=== PATIENT | male | born 1980 | race Caucasian/White ===

== ENCOUNTER 2017-08-10 12:12 | Emergency (ER) | payer SELFPAY ==
[2017-08-10 12:13] VITALS: BP 147/73; PULSE 107; RESP 16; TEMP 37.1; O2SAT 98; BMI 22.5
--- NOTE | 2017-08-10 12:42 | ED.DCSUM_ITS ---
- ER Visit Summary Date of Service: 08/10/17 Chief Complaint: [] Mouth infection History of Present Illness: The patient is a 37 M [] right cheek swelling and concern for dental infection. Patient denies fevers. Reports difficulty with mastication. Denies difficulty swallowing fluids or shortness of breath. No other complaints at this time. Physical Examination: [] Mild right submandibular lymphadenopathy. Right intraoral inner lower cheek swelling with slight gingival swelling indicative of gingival soft tissue infection. No obvious abscess intraorally. Test Results: [] None. Emergency Department Course and Treatment: [] Patient provided oral azithromycin as he has not penicillin allergy. Patient provided oral naproxen for analgesia. Patient given prescriptions for azithromycin and naproxen for home. I encouraged PCP follow-up Treatment Plan: [] Outpatient treatment on antibiotics. Disposition: [] Discharge, stable. Impression: [] Gingival infection This note was generated with [employer] dictation software. It may contain incorrect words, spelling, and punctuation that were not noted in review of the chart prior to signing ED Disposition - Plan for ED Patient: Chief Complaint: Dental Referrals: Leandro Garza MD [Primary Care Provider] -
--- NOTE | 2017-08-10 12:42 | ED.DEP ---
ED Disposition - Plan for ED Patient: Disposition: Home or Assisted Living Chief Complaint: Dental Instructions: Dental Abscess Prescriptions: Azithromycin 250 mg PO DAILY #7 tab Naproxen 500 mg PO BID PRN PRN #20 tab PRN Reason: Pain Referrals: Leandro Garza MD [Primary Care Provider] -
[2017-08-10 12:54] VITALS: BP 139/80; PULSE 98; RESP 14; O2SAT 96
[2017-08-10] MEDS: Naproxen 500 MG Tablet PO (12:58)
[2017-08-10] MEDS: Azithromycin 250 MG Tablet 500 MG PO (12:58)
== END 2017-08-10 12:59 | disposition home or self-care (01) ==
LOC: ED 12:48
PROVIDERS: Emergency Provider Emergency Medicine; Family Provider Family Medicine; PCP Family Medicine
DX: K05.10 Chronic gingivitis, plaque induced (principal); Z72.0 Tobacco use
CPT/HCPCS: 99283

== ENCOUNTER 2017-11-18 09:25 | Emergency (ER) | payer SELFPAY ==
--- NOTE | 2017-11-18 09:25 | DT_ITS ---
This patient was seen during an EMR downtime November 12, 2017 - November 19, 2017. This patient may have a combination of paper and electronic documentation or all paper documentation. All documentation is viewable within the e-chart portion of [employer] for each patient visit.
--- NOTE | 2017-11-18 09:50 | US_ITS ---
STUDY: ABDOMINAL ULTRASOUND - RIGHT UPPER QUADRANT REASON FOR VISIT: Male, 37 years old. Pain TECHNIQUE: Ultrasound evaluation of the right upper quadrant was performed with real-time and static addison-scale imaging. TECHNICAL QUALITY: Adequate. COMPARISON: None. FINDINGS: Liver: The liver measures 18.9 cm. There is increased echogenicity consistent with fatty infiltration. The bile ducts are within normal limits. There is hepatic color flow. The direction of portal flow is hepatopetal. There is no demonstrated mass lesion. Gallbladder: Normal distended gallbladder. The gallbladder wall measures 5.4 mm. There is a negative sonographic Polanco's sign. There is no pericholecystic fluid. The gallbladder contains sludge and stones. Common Bile Duct (C.B.D.): The common bile duct measures 2.4 mm. Pancreas: Partially obscured. Visible portions are normal. Right Kidney: Normal size of the right kidney. The right kidney measures 11.1 x 5.8 x 5.2 cm. Normal renal cortex. The right cortex measures 1.3 cm. There is no demonstrated renal mass or cyst. There is no right hydronephrosis. US/Abdomen Limited IMPRESSION: The gallbladder contains sludge and stones. Gallbladder wall thickening is present. Common bile duct is normal. Fatty liver and hepatomegaly. Electronically Signed: Leandro Haro MD at 10:46 EDT Tel , Service support ,
--- NOTE | 2017-11-18 12:41 | EKG12_ITS ---
Test Reason : R UPPER QUAD PAIN Blood Pressure : / mmHG Vent. Rate : 092 BPM Atrial Rate : 092 BPM P-R Int : 176 ms QRS Dur : 088 ms QT Int : 448 ms P-R-T Axes : 049 037 -46 degrees QTc Int : 554 ms Normal sinus rhythm ST & T wave abnormality, consider inferior ischemia ST & T wave abnormality, consider anterior ischemia Prolonged QT Abnormal ECG Confirmed by JAS KENDALL, MARA ([id number]), newspaper editor managing SAIMA ROMERO ([id number]) on 11/21/2017 5:43:22 PM Referred By: Elijah Burgess Confirmed By:MARA MARK MD
--- NOTE | 2017-11-18 12:42 | EKG12_ITS ---
Test Reason : REPEAT Blood Pressure : / mmHG Vent. Rate : 093 BPM Atrial Rate : 093 BPM P-R Int : 184 ms QRS Dur : 092 ms QT Int : 408 ms P-R-T Axes : 053 026 000 degrees QTc Int : 507 ms Normal sinus rhythm ST & T wave abnormality, consider anterior ischemia Abnormal ECG Confirmed by JAS KENDALL, MARA ([id number]), video editor SAIMA ROMERO ([id number]) on 11/21/2017 5:44:25 PM Referred By: Elijah Burgess Confirmed By:MARA MARK MD
[2017-11-20 11:50] LABS: Hematocrit 44.6 % (40-54); Hemoglobin 16.1 g/dl (13.0-16.5); Mean Corp Hgb Conc 36.1 g/gl (32-36); Mean Corpuscular Hgb 34.8 pg (27.0-32.0); Mean Corpuscular Volume 96.5 fL (80-94); Platelet Count 185 K/mm3 (150-450); RBC Distribution Width CV 14.8 % (11.6-14.6); RBC Distribution Width SD 51.8 fl (35.1-43.9); Red Blood Count 4.62 M/mm3 (4.6-6.2); White Blood Count 6.9 K/mm3 (4.4-11.0)
[2017-11-20 11:51] LABS: Absolute Lymphocyte Count 1.66 X10^3/ul (0.83-4.51); Absolute Neutrophil Count 4.6 X10^3/uL (2.0-7.7); Basophil# 0.03 X10^3/uL; Basophil% 0.4 % (0-1); Eosinophil# 0.01 X10^3/uL; Eosinophils% 0.1 % (0-5); Lymphocyte # 1.66 X10^3/ul (4.0); Lymphocyte % 23.9 % (19-41); Mean Platelet Vol. 10.8 fl (6.2-12.0); Monocyte# 0.59 X10^3/uL; Monocyte% 8.5 % (0-10); Neutrophil # 4.64 X10^3/uL (2.7-7.7); POSITIVE COUNT NO; POSITIVE DIFFERENTIAL NO; POSITIVE MORPHOLOGY NO
[2017-11-20 14:49] LABS: Magnesium 1.7 mg/dL (1.6-2.6)
[2017-11-20 14:50] LABS: ALB/GLOB Ratio 0.8 RATIO (0.9-2.4); AST(SGOT) 261 U/L (15-37); Alanine Aminotransfer ALT/SGPT 57 U/L (16-61); Albumin, Serum 3.4 g/dL (3.2-5.0); Alkaline Phosphatase 177 U/L (45-117); Anion Gap 12 (5-15); BUN 3 mg/dL (7-18); BUN/Creat Ratio 3.5 RATIO (10-20); Calcium,Total 8.6 mg/dL (8.5-10.1); Chloride 91 mmol/L (98-107); Creatinine, Serum 0.86 mg/dL (0.70-1.30); EST Glomerular Filtration Rate 108 mL/min (>60); Est Glom Filt Rate - Afr Amer 131 mL/min (>60); Globulin 4.2 g/dL (2.2-4.2); Glucose 191 mg/dL (74-106); Lipase 141 U/L (73-393); Protein, Total 7.6 g/dL (6.4-8.2); Sodium Level 136 mmol/L (136-145)
[2017-11-20 14:51] LABS: Potassium 2.3 mmol/L (3.5-5.1)
== END 2017-11-18 13:25 | disposition left against medical advice (07) ==
LOC: ED 21:02
PROVIDERS: Emergency Provider Emergency Medicine
DX: K80.51 Calculus of bile duct without cholangitis or cholecystitis with obstruction (principal); E87.6 Hypokalemia; J34.89 Other specified disorders of nose and nasal sinuses; F10.20 Alcohol dependence, uncomplicated; F17.200 Nicotine dependence, unspecified, uncomplicated
CPT/HCPCS: 36415; 76705; 80053; 83690; 83735; 85025; 93005; 96360; 96374; 99284

== ENCOUNTER 2017-11-24 15:57 | Emergency (ER) | payer SELFPAY ==
[2017-11-24 15:58] VITALS: BP 133/89; PULSE 115; RESP 16; TEMP 36.6; O2SAT 97; BMI 22.8
--- NOTE | 2017-11-24 16:10 | ED.DCSUM_ITS ---
- ER Visit Summary Date of Service: 11/24/17 Chief Complaint: Potassium check History of Present Illness: The patient is a 37 M Zentz to the emergency department for potassium check. The patient was seen here 1 week ago. At that time, he was having vomiting. He had low potassium of 2.3. He was placed on potassium replacement. He states his vomiting has significantly slowed. He has been taking 20 mEq twice a day. He states his symptoms have improved but he wanted to make sure that he was heading in the right direction. He denies any fevers or chills. He denies any chest pain. 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 Physical Examination: Vital signs reviewed General: Well-nourished, well-developed Head: Normocephalic, atraumatic Eyes: Pupils equal and reactive, extraocular muscles intact Neck, supple, no lymphadenopathy Heart: Regular rate and rhythm Respiratory: No distress, clear bilaterally Abdomen: Soft, nontender, nondistended, no peritoneal signs Back: Nontender Extremities: Nontender, no edema, no cords Skin: Normal color no rash Neuro: Alert and oriented, no focal or lateralizing deficits Test Results: [] Emergency Department Course and Treatment: The patient basically has no complaints. I did obtain a BMP. His potassium is still low, but it has been improving slowly. He has normal renal function. I am going to increase his potassium supplementation. Again, he has absolutely no symptoms. I do feel it is safe for outpatient therapy. He will be discharged home. Treatment Plan: [] Disposition: Discharge Impression: Hypokalemia This note was generated with [employer] dictation software. It may contain incorrect words, spelling, and punctuation that were not noted in review of the chart prior to signing ED Disposition - Plan for ED Patient: Chief Complaint: Abn Labs Instructions: ED Potassium Deficiency Prescriptions: Potassium Chloride [K-Dur] 40 meq PO BID #90 tab Referrals: Care Physician,No Primary [Primary Care Provider] -
[2017-11-24 17:57] LABS: Anion Gap 12 (5-15); BUN 2 mg/dL (7-18); BUN/Creat Ratio 2.4 RATIO (10-20); Calcium,Total 8.9 mg/dL (8.5-10.1); Chloride 95 mmol/L (98-107); Creatinine, Serum 0.82 mg/dL (0.70-1.30); EST Glomerular Filtration Rate 113 mL/min (>60); Est Glom Filt Rate - Afr Amer 136 mL/min (>60); Estimated Creatinine Clearance 125.03 ml/min; Glucose 113 mg/dL (74-106); Potassium 2.7 mmol/L (3.5-5.1); Sodium Level 137 mmol/L (136-145)
--- NOTE | 2017-11-24 17:58 | ED.RN ---
LAB CALLED WITH RESULTS, PTS POTASSIUM WAS 2.7. RESULTS REPORTED TO DR. CLINTON, NO ORDERS GIVEN.
[2017-11-24 18:10] VITALS: BP 131/101; PULSE 108; RESP 16; O2SAT 97
== END 2017-11-24 18:11 | disposition home or self-care (01) ==
LOC: ED 16:17
PROVIDERS: Emergency Provider Emergency Medicine
DX: E87.6 Hypokalemia (principal); R11.2 Nausea with vomiting, unspecified
CPT/HCPCS: 80048; 99282; A4216

== ENCOUNTER 2018-02-06 16:09 | Emergency (ER) | payer SELFPAY ==
[2018-02-06 16:10] VITALS: BP 123/94; PULSE 121; RESP 15; TEMP 37.3; O2SAT 97; BMI 23.5
[2018-02-06 16:34] VITALS: PULSE 124; RESP 16
[2018-02-06] MEDS: Ipratropium/Albuterol Sulfate 3 ML AMPUL.NEB INHALATION (16:34)
[2018-02-06 17:07] LABS: Absolute Lymphocyte Count 3.27 X10^3/ul (0.83-4.51); Absolute Neutrophil Count 3.1 X10^3/uL (2.0-7.7); Basophil# 0.02 X10^3/uL; Basophil% 0.3 % (0-1); Eosinophil# 0.02 X10^3/uL; Eosinophils% 0.3 % (0-5); Hematocrit 47.2 % (40-54); Lymphocyte # 3.27 X10^3/ul (4.0); Lymphocyte % 47.6 % (19-41); Mean Corpuscular Hgb 34.6 pg (27.0-32.0); Mean Corpuscular Volume 95.9 fL (80-94); Mean Platelet Vol. 10.6 fl (6.2-12.0); Monocyte# 0.48 X10^3/uL; Neutrophil # 3.07 X10^3/uL (2.7-7.7); Neutrophil % 44.7 % (47-70); Platelet Count 268 K/mm3 (150-450); RBC Distribution Width CV 14.9 % (11.6-14.6); RBC Distribution Width SD 49.7 fl (35.1-43.9); Red Blood Count 4.92 M/mm3 (4.6-6.2); White Blood Count 6.9 K/mm3 (4.4-11.0)
[2018-02-06 17:08] LABS: POSITIVE COUNT NO; POSITIVE DIFFERENTIAL NO; POSITIVE MORPHOLOGY NO
[2018-02-06 17:12] LABS: Anion Gap 14 (5-15); BUN 3 mg/dL (7-18); BUN/Creat Ratio 3.5 RATIO (10-20); Calcium,Total 9.3 mg/dL (8.5-10.1); Chloride 105 mmol/L (98-107); Creatinine, Serum 0.86 mg/dL (0.70-1.30); EST Glomerular Filtration Rate 107 mL/min (>60); Est Glom Filt Rate - Afr Amer 129 mL/min (>60); Estimated Creatinine Clearance 112.09 ml/min; Glucose 123 mg/dL (74-106); Potassium 3.6 mmol/L (3.5-5.1); Sodium Level 142 mmol/L (136-145)
[2018-02-06 17:51] LABS: D-Dimer Quantitative (DVT/PE) 0.67 FEU/ug/m (0.27-0.49)
--- NOTE | 2018-02-06 18:11 | ED.VISSUMM ---
- ER Visit Summary Date of Service: 02/06/18 Chief Complaint: URI symptoms History of Present Illness: The patient is a 37 M presenting with fever, congestion, dyspnea, productive cough. He states this started 3 days ago. He has had congestion and tightness in his chest. He complains of mild diarrhea. He denies sick contacts. He is a smoker. Denies other complaints. Physical Examination: Vitals are stable. Heart rate 120. Temperature 99.1. Alert no acute distress. HEENT exam is unremarkable. Neck is supple. Lungs are expiratory wheezing bilaterally. Heart is regular and tachycardic Abdomen is soft nontender nondistended. Extremities are unremarkable. Skin is warm and dry. No focal neurologic deficit. Remainder of exam is unremarkable. Emergency Department Course and Treatment: Patient is given albuterol Atrovent aerosols. EKG is sinus tachycardia rate 116 with nonspecific T-wave changes unchanged from previous. CBC, chemistries unremarkable. Troponin is negative. D-dimer is elevated at 0.67. Due to elevated d-dimer, CTA chest was obtained and shows no acute process. No evidence of pulmonary embolus or aortic dissection. Right lung nodules measuring up to 7 mm. Follow-up at 6-12 months is recommended by Fleischner Society criteria. Patient is advised of these findings and will follow up with Dr. Garza. He is feeling improved on reevaluation. Repeat heart rate is 101. He is given an albuterol MDI. He is advised to follow-up with Dr. Garza. Advised to return to the ED for worsening complaints. Disposition: Discharge home Impression: Bronchitis This note was generated with [employer] dictation software. It may contain incorrect words, spelling, and punctuation that were not noted in review of the chart prior to signing ED Disposition - Plan for ED Patient: Chief Complaint: Cold Sx Instructions: ED Upper Resp Infec No Abx Tx Referrals: Leandro Garza MD [Primary Care Provider] -
--- NOTE | 2018-02-06 19:10 | ED.DEP ---
ED Disposition - Plan for ED Patient: Chief Complaint: Cold Sx Instructions: ED Upper Resp Infec No Abx Tx Referrals: Leandro Garza MD [Primary Care Provider] -
[2018-02-06 19:31] VITALS: BP 119/79; PULSE 97; RESP 18; O2SAT 96
== END 2018-02-06 19:31 | disposition home or self-care (01) ==
LOC: ED 16:29
PROVIDERS: Emergency Provider Emergency Medicine; Family Provider Family Medicine; PCP Family Medicine
DX: J40 Bronchitis, not specified as acute or chronic (principal); R00.0 Tachycardia, unspecified; R74.8 Abnormal levels of other serum enzymes; R19.7 Diarrhea, unspecified; F17.200 Nicotine dependence, unspecified, uncomplicated
CPT/HCPCS: 71046; 71275; 80048; 84484; 85025; 85379; 93005; 94640; 99283; Q9967; A4216

== ENCOUNTER 2018-02-18 15:01 | Day surgery (SDC) | payer SELFPAY ==
--- NOTE | 2018-02-18 15:30 | GALL_PTH ---
PATIENT: MATHEUS NUGENT [place] [facility] [place][id number] AGE/SX: 37/M ROOM: RE02/18/[address]: Dr. Sage Laughlin MD : [id number] BED: DIS: 02/18/2018 SPEC #: [id number] RECD: 02/19/18 10:27 STATUS: KONG REDre #: [id number] JUAN: 02/18/18 15:[address]: Sage Laughlin DEPT: SURGICAL PATHOLOGY RECD BY: Jey Alex ENTERED: 02/19/18 12:14 SP TYPE: [facility] DR: Dr. Leandro Garza MD Tissues: Gallbladder, NOS Procedures: Surgery Specimen Level III HEADER OPERATION: Laparoscopic cholecystectomy with intraoperative cholangiogram PRE-OP DIAGNOSIS: Biliary colic, cholelithiasis TISSUE SUBMITTED: Gallbladder and contents MICROSCOPIC DIAGNOSIS Gallbladder and contents: Mild chronic cholecystitis and cholelithiasis. SJ:selwyn 02/20/18 MICROSCOPIC DESCRIPTION Slides are reviewed. GROSS DESCRIPTION Received is one container labeled with the patient's name and designated gallbladder and contents. The specimen consists of a gallbladder measuring 10 cm in length and up to 4 cm in diameter. The external surface is pink-cameron, smooth and glistening for the most part. Focally it is granular, hemorrhagic and contains cautery artifact. The gallbladder contains green-yellow mucoid bile and multiple black stones mixed with sludge material measuring in aggregate 2.5 x 2.5 x 0.3 cm and <0.1 cm to 0.3 cm in greatest dimension. The mucosa is bile-stained and without any mass lesions. The gallbladder wall measures up to 0.2 cm in thickness. Pick Up Operator sections from the gallbladder and the cystic duct are submitted in one cassette. / SJ:rg 02/19/18 TC:3 [facility]: [id number]
[2018-02-18 15:37] VITALS: BP 142/99; PULSE 97; RESP 18; TEMP 36.2; O2SAT 100; BMI 21.4
--- NOTE | 2018-02-18 16:01 | EKG12_ITS ---
Test Reason : PRE OP Blood Pressure : / mmHG Vent. Rate : 084 BPM Atrial Rate : 084 BPM P-R Int : 160 ms QRS Dur : 084 ms QT Int : 408 ms P-R-T Axes : 060 036 039 degrees QTc Int : 482 ms Normal sinus rhythm Nonspecific T wave abnormality Abnormal ECG Confirmed by JAS KENDALL, MARA ([id number]), desk editor SAIMA ROMERO ([id number]) on 02/20/2018 2:12:09 PM Referred By: Sage Laughlin Confirmed By:MARA MARK MD
[2018-02-18 16:15] LABS: Potassium 3.3 mmol/L (3.5-5.1)
--- NOTE | 2018-02-18 18:00 | RAD_ITS ---
CLINICAL HISTORY: Male, 37 years old. Gallstones. PROCEDURE: CHOLANGIOGRAM - intraoperative FLUOROSCOPY TIME (if supplied): ( ) minutes/seconds TECHNIQUE: 2 series of intraoperative images were presented for interpretation. COMPARISON: Abdominal ultrasound, November 18, 2017. FINDINGS: The images demonstrates cannulization of the cystic duct stump. Injection of contrast material. There is slow filling of the BMD which is normal in diameter without filling defect. Intrahepatic ducts full fill completely and are without dilatation or filling defect. There is spillage of contrast into the duodenum. Please refer to the operative report for further details. RAD/Cholangiogram/ O R,Initial IMPRESSION: Interoperative cholangiogram. Electronically Signed: Bobby Linares DO at 19:36 EDT Tel [phone], Service support ,
[2018-02-18] MEDS: Bupivacaine Mpf 0.5% 30 ML VIAL (18:15)
--- NOTE | 2018-02-18 19:26 | DCINST_ITS ---
Discharge Diet: Light diet - advance as tolerated Discharge Activity: May Not Drive - for 2-3 days or while taking narcotic pain medications., - - Do not drive, work heavy equipment or sign legal documents for 24 hours. May shower in (days): 1 - with the bandage in place. Additional Activity Instructions:: Pain medication may cause nausea. You should typically eat light foods as you take your pain medications. Pain medication may also cause constipation. If this is a problem for you, please discuss with your doctor. Call your doctor if your incision/area has: Continuous Slow Oozing, Sudden Increased Bleeding, Increased Pain/ Swelling, Increased Redness, Foul Smelling Discharge Call your doctor if you observe: Fever of 101 or Higher Suture Line Care: Avoid Pulling/Pushing, Avoid Pinching/Bending Additional Dressing/Incision Instructions:: Leave operative bandaids on for 2 days. When you remove dressing, leave Steri-Strips on until your follow-up appointment, or until the Steri-Strips fall off on their own. Allergies/Adverse Reactions: Allergies bee venom protein (honey bee) Allergy (Verified 02/15/18 14:43) Anaphylaxis Penicillins [PCN] Adverse Reaction (Verified 02/15/18 14:43) Upset Stomach Medications to take at Discharge Magnesium 2 tab PO DAILY 02/15/18 Potassium Chloride [K-Dur] 2 tab PO TID 02/15/18 Ibuprofen [Motrin] 400 mg PO Q4H PRN PRN tablet 02/18/18 Primary Care Physician: Leandro Garza MD [Primary Care Provider] - Test Results: Test results from this visit will be discussed in further detail at your follow- up appointment, if applicable. Please Follow Up With: Sage Laughlin MD - Please call [phone] to schedule an appointment. When: 7 days after your surgery
--- NOTE | 2018-02-18 19:28 | OP.PCM_ITS ---
Report of Operation Date of Procedure: 02/18/18 Pre-Operative Diagnosis: biliary colic Post-Operative Diagnosis: biliary colic, fatty liver normal IOC Surgery/Procedure Performed:: laparoscopci cholecystectomy wiht intraoperaqtive cholangiogram spike machine heater: Kehinde Nielson Type of Anesthesia:: General Anesthesiologist: Sunday Huerta - ASA3 Specimen's removed: gallbladder Estimated Blood Loss (mL): 50 Fluids Replaced: 900 Description of Procedure: The patient was brought to the operating suite. Sign in was performed verifying patient, site, position, SCIP antibiotic prophylaxis- gm of Ancef and DVT prophylaxis with SCDs. Following induction of general anesthetic. The patient?s abdomen was prepped and draped in the usual fashion. Timeout was performed verifying patient, site , position. Local anesthetic was injected below the umbilicus. Incision made and dissection carried down to the umbilical root fascia. 2 stay sutures were placed. Incision made in the fascia, the peritoneum entered under direct visualization. A 10 mm Gonzalez trocar was inserted and secured with the stay sutures. Pneumoperitoneum to 15 mmHg was insufflated. Visual inspection revealed a very distended fatty liver which seemed to engulf the gallbladder. 3 right upper quadrant 5 ports were placed in the standard position. The gallbladder was grasped retracted upward and outward. Dissection was carried out in Calot?s triangle. When a critical view of the neck of the gallbladder funneling of the cystic duct with no signs of aberrant ductal structures were seen, a clip was placed on the neck of the gallbladder cystic duct junction. A partial ductotomy was made. A Cholangiocath was inserted into the duct and secured with a clip. Intraoperative cholangiogram was performed demonstrating filling of the cystic duct filling the common bile duct and emptying into the duodenum without signs of obstruction area and the clip and catheter were removed. 2 clips placed on the cystic duct and the cystic duct divided. Dissection was continued until the cystic artery was clearly dissected and identified. The artery was then doubly clipped proximally singly clipped distally and divided. The gallbladder was then dissected free from the gallbladder fossa using electrocautery. The gallbladder was placed in an Endobag and removed through the umbilical port site. An 0 PDS [id number] suture was placed around the umbilical port site defect. Pneumoperitoneum was reestablished. The gallbladder fossa was checked for hemostasis. With good hemostasis, the area was irrigated and aspirated to clear. 5mm ports were removed under direct visualization with no signs of bleeding. Pneumoperitoneum was released. The Gonzalez trocar was removed. The umbilical fascial suture was secured area did skin was closed with interrupted 4 -0 Monocryl subcuticular sutures. Steri-Strips and bandages were applied. The patient was brought to recovery room in stable condition. - Admit VTE Documentation VTE Present on Admission: No VTE Mechan Device Prophylaxis: SCD's VTE Pharm Prophylaxis ordered?: No
[2018-02-18 19:50] VITALS: BP 142/99; PULSE 96; RESP 16; TEMP 36.9; O2SAT 97
[2018-02-18 20:00] VITALS: BP 142/99; BP 153/108; PULSE 87; RESP 16; O2SAT 97
[2018-02-18 20:15] VITALS: BP 124/106; BP 142/99; PULSE 82; RESP 16; O2SAT 94
[2018-02-18 20:29] VITALS: BP 142/99; BP 154/112; PULSE 95; RESP 18; TEMP 37.9; O2SAT 97
[2018-02-18] MEDS: Ibuprofen 400 MG Tablet PO (20:51)
--- NOTE | 2018-02-18 21:26 | SUR.PHASEII ---
NOTIFIED DR CHENEY THAT PATIENT STILL C/O ABDOMINAL PAIN 5-10 AFTER MOTRIN, RELUCTANT TO GO HOME. BP, TEMP, ELEVATED, SLIGHTLY SWEATY, MILD TREMORS IN A PATIENT WHO IS ALCOHOLIC. DR CHENEY ORDERED TORADOL 30 MG IV WITH THE KNOWLEDGE THAT HAD PO MOTRIN, AND PATIENT SHOULD GO HOME. WILL EXPLAIN TO PATIENT AND MEDICATE. WILL EDUCATE ABOUT THE RISKS OF ALCOHOL AND ANESTHESIA, ALCOHOL WITHDRAWAL.
[2018-02-18] MEDS: Ketorolac 30 MG/ML Syringe IV (21:32)
[2018-02-18 21:33] VITALS: BP 142/99; BP 144/108; PULSE 84; RESP 84; TEMP 37.2; O2SAT 20
== END 2018-02-18 21:47 | disposition home or self-care (01) ==
LOC: SDC 15:02 → AC 15:10
PROVIDERS: Anesthesiology; Family Provider Family Medicine; PCP Family Medicine; Visit Provider Surgery
PROC: (CPT 47610; principal; 2018-02-18 15:10)
DX: K80.20 Calculus of gallbladder without cholecystitis without obstruction (principal); F10.20 Alcohol dependence, uncomplicated; K21.9 Gastro-esophageal reflux disease without esophagitis; F17.200 Nicotine dependence, unspecified, uncomplicated
CPT/HCPCS: 47563; 36415; 74300; 76000; 84132; 88304; 93005; J7120; J2405

== ENCOUNTER 2018-12-11 23:45 | Inpatient (IN) | payer MEDICAID, SELFPAY ==
[2018-12-11 23:46] VITALS: BP 115/66; PULSE 114; RESP 22; TEMP 37.1; O2SAT 100; BMI 23.1
[2018-12-12] VITALS (31 sets, daily range): BP systolic 96–110; BP diastolic 55–76; PULSE 104–112; RESP 16–33; TEMP 36.4–37.1; O2SAT 94–100; BMI 22.6
--- NOTE | 2018-12-12 | EKG12_ITS ---
Test Reason : WEAKNESS Blood Pressure : / mmHG Vent. Rate : 110 BPM Atrial Rate : 110 BPM P-R Int : 186 ms QRS Dur : 096 ms QT Int : 368 ms P-R-T Axes : 049 027 190 degrees QTc Int : 498 ms Sinus tachycardia Nonspecific T wave abnormality Abnormal ECG Confirmed by OMAR KENDALL, MICHELLE ([id number]), acquisition editor ABDIRAHMAN LOPEZ ([id number]) on 12/16/2018 1:29:58 PM Referred By: YISEL Confirmed By:MICHELLE NELSON MD
--- NOTE | 2018-12-12 | RAD_ITS ---
HISTORY: Shortness of breath. Weakness for 2 months. EXAM: XR Chest 1 View: COMPARISON: February 06, 2018 FINDINGS: # of images incl. paperwork: 1 There is marked difference in appearance of the lungs and heart between the 2 studies. I believe most of this differences between the current study being an AP portable technique, and the previous study been a PA nonportable exam. The lungs appear to be relatively hypoexpanded on the current study. There is apparent pulmonary edema on the current study. The left lateral costophrenic sulcus is slightly obscured. This could just be positional. This could also be due to some basilar atelectasis and a small left pleural effusion No focal airspace disease is perceived. Heart is not enlarged. Bones are normal. Pulmonary vascularity is indistinct. RAD/Chest 1 View (Portable) IMPRESSION: Pulmonary hypoexpansion and pulmonary edema. at 0054 Reported and signed by: Farhan Simpson MD Electronically Signed: Farhan Simpson MD at 0:53 EDT Tel , Service support ,
--- NOTE | 2018-12-12 00:01 | CT_ITS ---
HISTORY: INCREASED WEAKNESS BOTH LEGS X 1 MONTH, UNABLE TO BEAR WEIGHT TODAY, HX SZ TECHNIQUE: Multiple axial images were obtained of the brain without intravenous contrast. A radiation dose optimization technique was used for this scan. COMPARISON: None FINDINGS: # of images incl. paperwork: 243 Visualized portions of the paranasal sinuses and mastoid air cells are free of disease. Brain volume is mildly atrophic, which is unusual for a patient of stated age 38 years. Ferguson-white differentiation is preserved. No hydrocephalus. No acute ischemia. No acute intracranial hemorrhage. CT/Brain/Head without Contrast IMPRESSION: Trace brain atrophy. This is unusual for a patient of stated age 38 years. Differential diagnosis includes chronic illness, chronic alcohol abuse, chronic drug use, malnutrition, HIV, amongst other potential etiologies. ASPECT 10. Individualized dose optimization techniques were used for this CT. at 0037 Reported and signed by: Farhan Simpson MD Electronically Signed: Farhan Simpson MD at 0:36 EDT Tel , Service support ,
--- NOTE | 2018-12-12 00:04 | ED.DCSUM_ITS ---
- ER Visit Summary Date of Service: 12/12/18 Chief Complaint: Weakness History of Present Illness: The patient is a 38 M presenting with weakness. Patient states this started approximately 2 weeks ago. He has weakness in both legs. He states he also has some weakness in his arms. He has had difficulty s tanding and ambulating. Today family was able to convince him to come to the emergency department. He denies back pain or urinary or bowel incontinence. Denies fever. Denies chest pain. He states he has mild shortness of breath with cough. He has had mild diarrhea with no blood in his stool. He denies abdominal pain, nausea, vomiting. He has a history of alcoholism and quit drinking approximately a month ago. Denies drug use. Physical Examination: Vitals are stable. Patient is afebrile. Alert no acute distress. HEENT exam is unremarkable. Neck is supple. Lungs are clear and equal bilaterally. Heart is regular and tachycardic Abdomen is soft nontender nondistended. Extremities are unremarkable. Skin is warm and dry. Symmetric bilateral lower extremity weakness Remainder of exam is unremarkable. Emergency Department Course and Treatment: Patient was given IV fluids. EKG is sinus tachycardia rate of 110 with T wave inversion V1 through V5. CBC shows white count 11.4, hemoglobin 9.2. Chemistries show sodium 120, potassium 1.7, chloride 73, glucose 158. Magnesium 1.9. Phosphorus 2.6. CK 124. Urine tox i s negative. Alcohol negative. Chest x-ray shows pulmonary hypoexpansion, pulmonary edema. CT head shows trace brain atrophy. Patient was given IV fluids, IV KCl. Discussed with the hospitalist for admission. Disposition: Admission Impression: Hypokalemia, hyponatremia This note was generated with [employer] dictation software. It may contain incorrect words, spelling, and punctuation that were not noted in review of the chart prior to signing ED Disposition - Plan for ED Patient: Referrals: Leandro Garza MD [Primary Care Provider] -
[2018-12-12] MEDS: 0.9% Normal Saline 1,000 ML 1000 ML IV (00:12)
[2018-12-12 00:24] LABS: Bacteria 0 SEEN /hpf (None Seen); Mucous, Urine 0 SEEN /hpf (<or=2+)
[2018-12-12 00:28] LABS: Color, Urine Yellow (Yellow); Glucose, Dipstick Normal (Normal); Ketone-Dipstick Negative (Negative); Leukocyte Esterase-Dipstick 25 /ul (Negative); Nitrite-Dipstick Negative (Negative); Occult Blood-Urine 10 /ul (Negative); Protein-Dipstick 30 mg/dl (Negative); Specific Gravity, Urine 1.005 (1.002-1.030); Urine Clarity Sl. Cloudy (Clear); Urine Urobilinogen 4 mg/dl (Normal)
[2018-12-12 00:33] LABS: Absolute Lymphocyte Count 1.68 X10^3/ul (0.83-4.51); Absolute Neutrophil Count 8.8 X10^3/uL (2.0-7.7); Alcohol, Blood (Medical)-Serum < 3.0 mg/dL; Basophil# 0.03 X10^3/uL; Basophil% 0.3 % (0-1); Eosinophil# 0.01 X10^3/uL; Eosinophils% 0.1 % (0-5); Hematocrit 26.6 % (40-54); Hemoglobin 9.2 g/dl (13.0-16.5); Lymphocyte # 1.68 X10^3/ul (4.0); Lymphocyte % 14.7 % (19-41); Mean Corp Hgb Conc 34.6 g/gl (32-36); Mean Corpuscular Hgb 32.4 pg (27.0-32.0); Mean Corpuscular Volume 93.7 fL (80-94); Mean Platelet Vol. 10.1 fl (6.2-12.0); Neutrophil # 8.84 X10^3/uL (2.7-7.7); Neutrophil % 77.6 % (47-70); Platelet Count 260 K/mm3 (150-450); RBC Distribution Width CV 16.9 % (11.6-14.6); RBC Distribution Width SD 57.2 fl (35.1-43.9); Red Blood Count 2.84 M/mm3 (4.6-6.2); White Blood Count 11.4 K/mm3 (4.4-11.0)
[2018-12-12 00:34] LABS: Absolute Nucleated RBC Count 0.09 10^3/uL (0-5); NRBC Flagged by Analyzer 0.7 % (0-5); POSITIVE COUNT NO; POSITIVE DIFFERENTIAL NO; POSITIVE MORPHOLOGY NO
[2018-12-12 00:41] LABS: Amphetamine Urine VISTA NEGATIVE (<1000 ng/mL); Barbiturate Urine VISTA NEGATIVE (< 200 ng/mL); Benzodiazepine Urine VISTA NEGATIVE (< 200 ng/mL); Cocaine Urine VISTA NEGATIVE (< 300 ng/mL); Ecstacy Urine VISTA NEGATIVE (< 500 ng/mL); Methadone Urine VISTA NEGATIVE (< 300 ng/mL); PCP Urine VISTA NEGATIVE (< 25 ng/mL); THC Urine VISTA NEGATIVE (< 50 ng/mL); Vista UDS pH Range 6
[2018-12-12 00:44] LABS: Anion Gap 13 (5-15); BUN 10 mg/dL (7-18); BUN/Creat Ratio 10.2 RATIO (10-20); CPK Total, Creatine Kinase 124 U/L (39-308); Calcium,Total 8.2 mg/dL (8.5-10.1); Chloride 73 mmol/L (98-107); Creatinine, Serum 0.98 mg/dL (0.70-1.30); EST Glomerular Filtration Rate 91 mL/min (>60); Est Glom Filt Rate - Afr Amer 111 mL/min (>60); Estimated Creatinine Clearance 104.21 ml/min; Glucose 158 mg/dL (74-106); Magnesium 1.9 mg/dL (1.6-2.6); Phosphorus 2.6 mg/dL (2.5-4.9); Potassium 1.7 mmol/L (3.5-5.1); Sodium Level 120 mmol/L (136-145)
--- NOTE | 2018-12-12 00:44 | ED.RN ---
DR MORILLO MADE AWARE OF K+1.7, CHLORIDE 73.
[2018-12-12] MEDS: Potassium Chloride 10mEq/100mL 10 MEQ/100 ML IV.SOLN. 100 MEQ IV BOLUS ×10 (00:57→17:28)
--- NOTE | 2018-12-12 01:06 | PCM.HP.STD ---
Problem List (1) Hypokalemia Status: Acute (2) Hyponatremia Status: Acute (3) Hypochloremia Status: Acute (4) Metabolic alkalosis Status: Acute History of Present Illness Date of Admission: 12/12/18 Chief Complaint: unable to stand or walk The patient is a 38 year old M with a significant history of former alcohol abuse who presented to the emergency department because of progressively worsening difficulty to stand or walk. His symptoms has been going on for about a month and a half. Patient has been so severe that he is unable to get up and with food for himself. Reportedly he quit drinking about a month ago. At the emergency department he was found to have a low potassium of 1.7. His sodium was 120; his chloride was 73. Also his CO2 was 34. Past Medical History Medical History: Medical History (Last Updated 12/12/18 @ 02:18 by Phil Granados MD) Denies previous medical history Allergies bee venom protein (honey bee) Allergy (Verified 12/11/18 23:48) Anaphylaxis Penicillins [PCN] Adverse Reaction (Verified 12/11/18 23:48) Upset Stomach Home Medications: Ambulatory Orders Medication Instructions Recorded NK 12/11/18 Surgical History: no surgical history Lives: Roommate Smoking Status: Current some day smoker Tobacco Use: Cigarettes Alcohol: Sober - *Family History Maternal History Items: Cancer, Diabetes, Heart Disease, - - Thyroid Paternal History Items: Heart Disease Review of Systems Constitutional: Reports: Weakness. Denies: Chills, Fever, Weight Change HEENT: Denies: Head Aches, Sinus Congestion, Sinus Drainage Cardiovascular: Denies: Chest Pain, Palpitations Respiratory: Denies: Cough, Shortness of breath at rest, Sputum production Gastrointestinal: Denies: Abdominal Pain, Nausea, Vomiting Genitourinary: Denies: Dysuria Musculoskeletal: Denies: Joint Pain, Joint Tenderness Skin: Denies: Rash, Wounds Neurological: Denies: Numbness, Tingling, Focal weakness Psychiatric: Denies: Anxiety, Depression, Homicidal Ideations, Suicidal Ideations Hematologic/ Lymphatic: Denies: Easy Bruising, Easy Bleeding VTE Information - Inpt Only VTE Present on Admission: No VTE Mechan Device Prophylaxis: None VTE Pharm Prophylaxis ordered?: Yes Patient Problems: Active and Suspected Problems (Last Updated 12/12/18 @ 02:18 by Phil Granados MD) Hypokalemia (Acute) Hyponatremia (Acute) Hypochloremia (Acute) Metabolic alkalosis (Acute) - Physical Exam General: Alert, Oriented x3, Cooperative HEENT: Atraumatic, PERRLA, EOMI, Normocephalic Neck: Supple, No JVD, Negative Carotid Bruits Lungs: Clear to auscultation, Normal air movement Cardiovascular: Regular rate, No murmurs Abdomen: Bowel Sounds Present, Soft, Non Tender Extremities: No edema, Capillary Refill Less than 3 Seconds, - - Reduced range of motion in bilateral lower extremities Skin: No rashes, No breakdown Musculoskeletal: No Tenderness to Palpation of Joints or Extremities Neurological: Cranial nerves II-XII grossly intact, - - Strength in bilateral upper extremity; and left lower extremity 3 out of 5. Strength in left lower extremity 2 out of 5. Patient was unable to sit on the bed by himself. Psych/Mental Status: Normal Affect, Appropriate Vital Signs Temp Pulse Resp BP Pulse Ox 98.7 F 114 H 22 H 115/66 100 12/11/18 23:46 12/11/18 23:46 12/11/18 23:46 12/11/18 23:46 12/11/18 23:46 Oxygen Delivery Method Room Air Weight: 70.9 kg Body Mass Index (BMI) 23.1 Laboratory Tests Past 24 Hrs 12/12/18 12/12/18 12/12/18 00:00 00:00 00:00 WBC 11.4 H RBC 2.84 L Hgb 9.2 L Hct 26.6 L MCV 93.7 MCH 32.4 H MCHC 34.6 RDW 16.9 H RDW Differential 57.2 H Plt Count 260 MPV 10.1 Immature Gran % (Auto) 0.300 Neut % (Auto) 77.6 H Lymph % (Auto) 14.7 L [place] % (Auto) 7.0 Eos % (Auto) 0.1 Baso % (Auto) 0.3 Absolute Neuts (auto) 8.8 H Absolute Lymphs (auto) 1.68 Total Counted Not Reportable Nucleated RBC % 0.7 Absolute Retic 0.09 Sodium 120 L Potassium 1.7 L* Chloride 73 L* Carbon Dioxide 34.0 H Anion Gap 13 BUN 10 Creatinine 0.98 Estim Creat Clear Calc 104.21 Est GFR (MDRD) Af Amer 111 Est GFR (MDRD) Non-Af 91 BUN/Creatinine Ratio 10.2 Glucose 158 H Calcium 8.2 L Phosphorus 2.6 Magnesium 1.9 Total Creatine Kinase 124 Troponin I < 0.015 Urine Color Urine Clarity Urine pH Ur Specific [place] Urine Protein Urine Glucose (UA) Urine Ketones Urine Occult Blood Urine Nitrite Urine Bilirubin Urine Urobilinogen Ur Leukocyte Esterase Urine RBC Urine WBC Ur Squamous Epith Cells Urine Bacteria Urine Mucus Urine Opiates Screen Urine Methadone Screen Ur Barbiturates Screen Ur Phencyclidine Scrn Ur Amphetamines Screen U Methamphetamin-MDMA U Benzodiazepines Scrn Urine Cocaine Screen U Cannabinoids Screen Ur Drug Screen Comment Ethyl Alcohol < 3.0 12/12/18 12/12/18 00:15 00:15 WBC RBC Hgb Hct MCV MCH MCHC RDW RDW Differential Plt Count MPV Immature Gran % (Auto) Neut % (Auto) Lymph % (Auto) [place] % (Auto) Eos % (Auto) Baso % (Auto) Absolute Neuts (auto) Absolute Lymphs (auto) Total Counted Nucleated RBC % Absolute Retic Sodium Potassium Chloride Carbon Dioxide Anion Gap BUN Creatinine Estim Creat Clear Calc Est GFR (MDRD) Af Amer Est GFR (MDRD) Non-Af BUN/Creatinine Ratio Glucose Calcium Phosphorus Magnesium Total Creatine Kinase Troponin I Urine Color Pending Urine Clarity Pending Urine pH Pending Ur Specific [place] Pending Urine Protein Pending Urine Glucose (UA) Pending Urine Ketones Pending Urine Occult Blood Pending Urine Nitrite Pending Urine Bilirubin Pending Urine Urobilinogen Pending Ur Leukocyte Esterase Pending Urine RBC Pending Urine WBC Pending Ur Squamous Epith Cells Pending Urine Bacteria Pending Urine Mucus Pending Urine Opiates Screen NEGATIVE Urine Methadone Screen NEGATIVE Ur Barbiturates Screen NEGATIVE Ur Phencyclidine Scrn NEGATIVE Ur Amphetamines Screen NEGATIVE U Methamphetamin-MDMA NEGATIVE U Benzodiazepines Scrn NEGATIVE Urine Cocaine Screen NEGATIVE U Cannabinoids Screen NEGATIVE Ur Drug Screen Comment Ethyl Alcohol Assessment/Plan All Active Problems (Last Updated 12/12/18 @ 02:18 by Phil Granados MD) Hypokalemia (Acute) Hyponatremia (Acute) Hypochloremia (Acute) Metabolic alkalosis (Acute) The patient is a 38 year old M with a significant history of former alcohol abuse who presented to the emergency department because of progressively worsening difficulty to stand or walk and was found to have severe hypokalemia; hyponatremia; hypochloremia and metabolic alkalosis. Paresis secondary to Severe hypokalemia The exact cause of his hypokalemia is unclear at this time. Reportedly he quit drinking about a month ago. He denies previous history of same to consider hypokalemic periodic paralysis. He denies any gastrointestinal symptoms of diarrhea or vomiting. But of note he reported mild diarrhea to ED physician. We will get magnesium level; urine chloride; urine sodium and urine potassium. Patient was started on IV potassium supplementation at the emergency department. Also he received sodium chloride 1000 mL bolus at the emergency department. Will start patient on sodium chloride with 40 mg of potassium. We will give stat potassium chloride 60 mEq and then put patient on potassium 40 mEq twice daily. Trend BMP. Patient was so weak that it was difficult for him to sit up in his bed. Because of concern for respiratory suppression due to weak muscles will trend vital capacity and NIF x 3 . PT and OT to work with patient. Trend BMP We will admit to the ICU. Technology Services Manager consult. Hyponatremia with Hypochloremia Presentation his sodium was 120. Exact etiology is unclear at this time. Management as above. Metabolic alkalosis On presentation his bicarbonate was 134. Etiology of metabolic alkalosis is unclear at this time. Because of his hypokalemia of 1 contraction. Urine electrolytes and management as above. Abnormal EKG Noted to have T wave inversion in leads V1 to V5. Likely secondary to hyperkalemia Replacement as above. Trend troponin. Neutrophilic leukocytosis Noted to have a white count of 11.4 with neutrophilic predominance. Likely reactive Trend Notes his previous hemoglobin was normal to high normal. Trend. Anemia On presentation his hemoglobin was 9.2 MCV was 93.7. Likely from alcoholism Hyperglycemia Patient with mild glucose of 158 on admission. We will get an A1c. Tobacco Abuse Counseled Nicotine patch ordered. Left wrist fracture On presentation patient had Matt wrap to his left wrist and reported that he has left wrist fracture and he is seeing orthopedic doctor at [facility].. Per patient the plan is to have surgery. Patient to continue outpatient follow-up. Continue Matt wrap. DVT prophylaxis High risk because of inability to move Subcutaneous Lovenox ordered. Code Visit Inpatient E&M: 72416 Init Hosp L3
[2018-12-12 01:17] LABS: Urine Bilirubin Dipstick 1 mg/dL (Negative)
[2018-12-12 01:19] LABS: Amorphous Sediment 1+; Red Blood Cells-Urine 0-5 SEEN /hpf (0-5); Squamous Epithelial Cells - UA 0-5 SEEN /hpf (0-5); White Blood Cells 0-5 SEEN /hpf (0-5)
[2018-12-12 03:24] LABS: Hemoglobin A1c 5.5 % (4.2-6.3)
[2018-12-12 03:29] LABS: Magnesium 1.7 mg/dL (1.6-2.6)
[2018-12-12] MEDS: Potassium Chloride 40 MEQ in 0.9% Normal Saline 1,000 ML 100 MEQ IV (03:29)
[2018-12-12 03:30] LABS: Urine Chloride 11 mmol/L (Not Establ.); Urine Sodium 12 mmol/L (Not Establ.)
[2018-12-12] MEDS: chlordiazePOXIDE 25 MG Capsule PO ×4 (06:21→23:00)
--- NOTE | 2018-12-12 06:39 | CON.PCM_ITS ---
Reason for Consult Date of Consultation: 12/12/18 Reason for Consultation: Profound hypokalemia History of Present Illness: The patient is a 38-year-old male, with a history as outlined below, who presented to the emergency department on the morning of December 12 with complaints of generalized weakness and inability to ambulate, which had reportedly been progressive over the last 6 weeks. The patient has a known long-standing history of alcohol dependency. The patient reported that he drank a bottle of schnapps per day. His last drink was approximately 24 to 48 hours ago. He stated that his issues initially began with an inability to ambulate due to profound lower extremity weakness. In addition to the aforementioned, the patient reports little p.o. intake over the specified time period. On presentation to the emergency department, the patient was noted to be afebrile, tachycardic but hemodynamically stable. He was initially documented to be saturating 100% on room air. Initial laboratory evaluation revealed a mildly elevated white blood cell count along with normocytic anemia. Chemistry profile was notable for a sodium of 120, potassium of 1.7, chloride of 73, bicarbonate of 34 and creatinine of 0.98. Troponin was negative. Toxicology screen was negative. Alcohol level was negative. CT head revealed brain atrophy concerning for sequelae of chronic alcohol abuse. The patient was provided with supplemental IV fluid hydration and started on potassium replacement. He was then admitted to the medical intensive care unit for ongoing management. Past Medical History Medical History: Medical History (Last Updated 12/12/18 @ 02:18 by Phil Granados MD) Denies previous medical history Allergies bee venom protein (honey bee) Allergy (Verified 12/11/18 23:48) Anaphylaxis Penicillins [PCN] Adverse Reaction (Verified 12/11/18 23:48) Upset Stomach Home Medications: Ambulatory Orders Medication Instructions Recorded NK 12/11/18 Surgical History: no surgical history Lives: Roommate Smoking Status: Light Smoker (<10/day) Tobacco Use: Cigarettes Alcohol: Sober - *Family History Maternal History Items: Cancer, Diabetes, Heart Disease, - - Thyroid Paternal History Items: Heart Disease Review of Systems Constitutional: Reports: Weakness, Fatigue Eyes: Denies: Blurred vision, Double vision HEENT: Denies: Head Aches, Sinus Congestion, Sinus Drainage Cardiovascular: Denies: Chest Pain, Palpitations Respiratory: Denies: Cough, Shortness of breath at rest, Sputum production Gastrointestinal: Reports: Diarrhea Genitourinary: Denies: Dysuria Musculoskeletal: Denies: Joint Pain, Joint Tenderness Skin: Denies: Rash, Wounds Neurological: Reports: - - + Generalized weakness Psychiatric: Reports: - - + EtOH Dependency Hematologic/ Lymphatic: Reports: Anemia Patient Problems: Active and Suspected Problems (Last Updated 12/12/18 @ 02:18 by Phil Granados MD) Hypokalemia (Acute) Hyponatremia (Acute) Hypochloremia (Acute) Metabolic alkalosis (Acute) Objective: The patient's most recent lab work, culture data and imaging studies have all been personally reviewed. - Physical Exam General: Alert, Cooperative, No apparent distress HEENT: Atraumatic, Normocephalic Oral: Dry Mucosa Neck: Supple, No Nodes, Trachea Midline Lungs: No rhonchi, No wheeze, No rales, Diminished Cardiovascular: Normal S1, Normal S2, No murmurs, Tachycardic Abdomen: Bowel Sounds Present, Soft, Non Tender Extremities: No clubbing, No cyanosis, No edema Skin: No breakdown Musculoskeletal: No Tenderness to Palpation of Joints or Extremities Lymphatic: No Cervical, Supraclavicular, or Inguinal Adenopathy Neurological: - - Generalized neuromuscular weakness Psych/Mental Status: Normal Affect, Appropriate Vital Signs Temp Pulse Resp BP Pulse Ox 97.8 F 108 H 22 H 98/55 L 96 12/12/18 04:00 12/12/18 06:00 12/12/18 06:00 12/12/18 06:00 12/12/18 06:00 Oxygen Delivery Method Room Air Weight: 153 lb 0.013 oz Body Mass Index (BMI) 22.6 Intake and Output for Last 24 Hours 12/10/18 12/11/18 12/12/18 23:59 23:59 23:59 Intake Total 1037 / 1037 Output Total 425 / 425 Balance 612 / 612 Laboratory Tests Past 24 Hrs 12/12/18 12/12/18 12/12/18 00:00 00:00 00:00 WBC 11.4 H RBC 2.84 L Hgb 9.2 L Hct 26.6 L MCV 93.7 MCH 32.4 H MCHC 34.6 RDW 16.9 H RDW Differential 57.2 H Plt Count 260 MPV 10.1 Immature Gran % (Auto) 0.300 Neut % (Auto) 77.6 H Lymph % (Auto) 14.7 L [place] % (Auto) 7.0 Eos % (Auto) 0.1 Baso % (Auto) 0.3 Absolute Neuts (auto) 8.8 H Absolute Lymphs (auto) 1.68 Total Counted Not Reportable Nucleated RBC % 0.7 Absolute Retic 0.09 Sodium 120 L Potassium 1.7 L* Chloride 73 L* Carbon Dioxide 34.0 H Anion Gap 13 BUN 10 Creatinine 0.98 Estim Creat Clear Calc 104.21 Est GFR (MDRD) Af Amer 111 Est GFR (MDRD) Non-Af 91 BUN/Creatinine Ratio 10.2 Glucose 158 H Hemoglobin A1c Calcium 8.2 L Phosphorus 2.6 Magnesium 1.9 Total Creatine Kinase 124 Troponin I < 0.015 Urine Color Urine Clarity Urine pH Ur Specific [place] Urine Protein Urine Glucose (UA) Urine Ketones Urine Occult Blood Urine Nitrite Urine Bilirubin Urine Urobilinogen Ur Leukocyte Esterase Urine RBC Urine WBC Ur Squamous Epith Cells Amorphous Sediment Urine Bacteria Urine Mucus Ur Random Sodium Urine Creatinine Urine Potassium Urine Chloride Urine Opiates Screen Urine Methadone Screen Ur Barbiturates Screen Ur Phencyclidine Scrn Ur Amphetamines Screen U Methamphetamin-MDMA U Benzodiazepines Scrn Urine Cocaine Screen U Cannabinoids Screen Ur Drug Screen Comment Ethyl Alcohol < 3.0 12/12/18 12/12/18 12/12/18 00:15 00:15 02:45 WBC RBC Hgb Hct MCV MCH MCHC RDW RDW Differential Plt Count MPV Immature Gran % (Auto) Neut % (Auto) Lymph % (Auto) [place] % (Auto) Eos % (Auto) Baso % (Auto) Absolute Neuts (auto) Absolute Lymphs (auto) Total Counted Nucleated RBC % Absolute Retic Sodium Potassium Chloride Carbon Dioxide Anion Gap BUN Creatinine Estim Creat Clear Calc Est GFR (MDRD) Af Amer Est GFR (MDRD) Non-Af BUN/Creatinine Ratio Glucose Hemoglobin A1c Calcium Phosphorus Magnesium 1.7 Total Creatine Kinase Troponin I Urine Color Yellow Urine Clarity Sl. Cloudy Urine pH 7.0 Ur Specific [place] 1.005 Urine Protein 30 H Urine Glucose (UA) Normal Urine Ketones Negative Urine Occult Blood 10 H Urine Nitrite Negative Urine Bilirubin 1 H Urine Urobilinogen 4 H Ur Leukocyte Esterase 25 H Urine RBC 0-5 SEEN Urine WBC 0-5 SEEN Ur Squamous Epith Cells 0-5 SEEN Amorphous Sediment 1+ Urine Bacteria 0 SEEN Urine Mucus 0 SEEN Ur Random Sodium Urine Creatinine Urine Potassium Urine Chloride Urine Opiates Screen NEGATIVE Urine Methadone Screen NEGATIVE Ur Barbiturates Screen NEGATIVE Ur Phencyclidine Scrn NEGATIVE Ur Amphetamines Screen NEGATIVE U Methamphetamin-MDMA NEGATIVE U Benzodiazepines Scrn NEGATIVE Urine Cocaine Screen NEGATIVE U Cannabinoids Screen NEGATIVE Ur Drug Screen Comment Ethyl Alcohol 12/12/18 12/12/18 12/12/18 02:45 02:45 02:45 WBC RBC Hgb Hct MCV MCH MCHC RDW RDW Differential Plt Count MPV Immature Gran % (Auto) Neut % (Auto) Lymph % (Auto) [place] % (Auto) Eos % (Auto) Baso % (Auto) Absolute Neuts (auto) Absolute Lymphs (auto) Total Counted Nucleated RBC % Absolute Retic Sodium Potassium Chloride Carbon Dioxide Anion Gap BUN Creatinine Estim Creat Clear Calc Est GFR (MDRD) Af Amer Est GFR (MDRD) Non-Af BUN/Creatinine Ratio Glucose Hemoglobin A1c 5.5 Calcium Phosphorus Magnesium Total Creatine Kinase Troponin I < 0.015 Urine Color Urine Clarity Urine pH Ur Specific [place] Urine Protein Urine Glucose (UA) Urine Ketones Urine Occult Blood Urine Nitrite Urine Bilirubin Urine Urobilinogen Ur Leukocyte Esterase Urine RBC Urine WBC Ur Squamous Epith Cells Amorphous Sediment Urine Bacteria Urine Mucus Ur Random Sodium 12 Urine Creatinine 25.30 Urine Potassium 1.0 Urine Chloride 11 Urine Opiates Screen Urine Methadone Screen Ur Barbiturates Screen Ur Phencyclidine Scrn Ur Amphetamines Screen U Methamphetamin-MDMA U Benzodiazepines Scrn Urine Cocaine Screen U Cannabinoids Screen Ur Drug Screen Comment Ethyl Alcohol 12/12/18 06:00 WBC RBC Hgb Hct MCV MCH MCHC RDW RDW Differential Plt Count MPV Immature Gran % (Auto) Neut % (Auto) Lymph % (Auto) [place] % (Auto) Eos % (Auto) Baso % (Auto) Absolute Neuts (auto) Absolute Lymphs (auto) Total Counted Nucleated RBC % Absolute Retic Sodium Pending Potassium Pending Chloride Pending Carbon Dioxide Pending Anion Gap Pending BUN Pending Creatinine Pending Estim Creat Clear Calc Est GFR (MDRD) Af Amer Pending Est GFR (MDRD) Non-Af Pending BUN/Creatinine Ratio Pending Glucose Pending Hemoglobin A1c Calcium Pending Phosphorus Magnesium Total Creatine Kinase Troponin I Pending Urine Color Urine Clarity Urine pH Ur Specific [place] Urine Protein Urine Glucose (UA) Urine Ketones Urine Occult Blood Urine Nitrite Urine Bilirubin Urine Urobilinogen Ur Leukocyte Esterase Urine RBC Urine WBC Ur Squamous Epith Cells Amorphous [place] Urine Bacteria Urine Mucus Ur Random Sodium Urine Creatinine Urine Potassium Urine Chloride Urine Opiates Screen Urine Methadone Screen Ur Barbiturates Screen Ur Phencyclidine Scrn Ur Amphetamines Screen U Methamphetamin-MDMA U Benzodiazepines Scrn Urine Cocaine Screen U Cannabinoids Screen Ur Drug Screen Comment Ethyl Alcohol Clinical Impression(s) from Imaging Studies Chest X-Ray 12/12/18 00:00 IMPRESSION: Pulmonary hypoexpansion and pulmonary edema. at 0054 Reported and signed by: Farhan Simpson MD Electronically Signed: Farhan Simpson MD at 0:53 EDT Tel , Service support , Brain CT 12/12/18 00:01 IMPRESSION: Trace brain atrophy. This is unusual for a patient of stated age 38 years. Differential diagnosis includes chronic illness, chronic alcohol abuse, chronic drug use, malnutrition, HIV, amongst other potential etiologies. ASPECT 10. Individualized dose optimization techniques were used for this CT. at 0037 Reported and signed by: Farhan Simpson MD Electronically Signed: Farhan Simpson MD at 0:36 EDT Tel , Service support , Assessment/Plan Active and Suspected Problems (Last Updated 12/12/18 @ 02:18 by Phil Granados MD) Hypokalemia (Acute) Hyponatremia (Acute) Hypochloremia (Acute) Metabolic alkalosis (Acute) RECOMMENDATIONS: 1. Conservative use of supplemental fluids to prevent overcorrection of sodium level. 2. Aggressive electrolyte repletion. 3. Serial chemistry monitoring. 4. Monitor for signs of alcohol withdrawal. Continue Librium, folic acid, thiamine and as needed Ativan. 5. Nicotine replacement therapy. 6. Physical therapy evaluation. IMPRESSIONS: 1. Hypokalemia with associated lower extremity paresis The exact etiology for the patient's hypokalemia is a bit unclear. It is unknown whether his metabolic alkalosis is contributing to his current state of potassium imbalance. His bicarbonate level was previously noted to be within normal limits in 2018. The patient's alkalosis may also be secondary to contraction as well. Regardless, at this time, the patient will be treated with supplemental IV fluids and aggressive electrolyte repletion to correct his metabolic derangements. Nephrology has also been consulted to assist in the management of this patient. 2. Hypovolemic hyponatremia Conservative use of normal saline supplemental IV fluids to prevent rapid overc orrection of the patient's serum sodium level. Continue frequent chemistry monitoring. 3. Acute kidney injury Likely prerenal in etiology and due to low relative intravascular state. Anticipate improvement with volume expansion. 4. Chronic alcohol and tobacco dependency The patient has a long-standing history of daily alcohol use and does report a history of prior withdrawal. He will be monitored accordingly and maintained on a Librium taper. Continue thiamine and folate repletion. Continue nicotine replacement therapy. 5. Anemia The patient's anemia appears to be relatively new, as he was previously noted to have a hemoglobin level in the 15 to 16 g/dL range in 2018. Will send type and screen and check fecal occult blood. Check iron studies as well. We will start the patient empirically on PPI therapy. This note was generated with [employer] dictation software. It may contain incorrect words, spelling, and punctuation that were not noted in checking the note before signing. Code Visit Inpatient E&M: 38199 Init Hosp L3
[2018-12-12 07:33] LABS: Anion Gap 12 (5-15); BUN 9 mg/dL (7-18); Calcium,Total 7.7 mg/dL (8.5-10.1); Chloride 76 mmol/L (98-107); Creatinine, Serum 0.69 mg/dL (0.70-1.30); EST Glomerular Filtration Rate 137 mL/min (>60); Est Glom Filt Rate - Afr Amer 166 mL/min (>60); Estimated Creatinine Clearance 145.28 ml/min; Glucose 143 mg/dL (74-106); Potassium 2.1 mmol/L (3.5-5.1); Sodium Level 125 mmol/L (136-145)
[2018-12-12 08:28] LABS: AST(SGOT) 106 U/L (15-37); Alanine Aminotransfer ALT/SGPT 26 U/L (16-61); Albumin, Serum 2.2 g/dL (3.2-5.0); Alkaline Phosphatase 176 U/L (45-117); Bilirubin, Direct 0.44 mg/dL (0.00-0.30); Globulin 4.1 g/dL (2.2-4.2); Protein, Total 6.3 g/dL (6.4-8.2)
--- NOTE | 2018-12-12 08:36 | PN_ITS ---
Patient Problems: Active and Suspected Problems (Last Updated 12/12/18 @ 02:18 by Phil Granados MD) Hypokalemia (Acute) Hyponatremia (Acute) Hypochloremia (Acute) Metabolic alkalosis (Acute) Subjective: The patient was seen and examined. Patient is awake, alert and answer questions appropriately in the morning today. Patient has bilateral lower extremity weakness, noticed 1.5 months ago by the patient. Slowly it has been worsening and not able to walk for last 1 week. Patient denies any fall but history is not reliable as the patient has chronic alcohol use and dependency. Patient was noted severe hypokalemia. Vitals mild tachycardic 110s, blood pressure in 100s, respiratory rate 22 to 26/min, pulse ox 96% on room air. Vitals/I&O's: Vital Signs Temp Pulse Resp BP Pulse Ox 97.8 F 107 H 26 H 102/58 L 96 12/12/18 04:00 12/12/18 08:00 12/12/18 08:00 12/12/18 08:00 12/12/18 08:00 Oxygen Delivery Method Room Air Weight: 153 lb 0.013 oz Body Mass Index (BMI) 22.6 Intake and Output for Last 24 Hours 12/10/18 12/11/18 12/12/18 23:59 23:59 23:59 Intake Total 1037 / 1037 Output Total 425 / 425 Balance 612 / 612 General: Alert, Oriented x3, Cooperative HEENT: Atraumatic, PERRLA, EOMI, Normocephalic Oral: Dry Mucosa Neck: Supple, No JVD, Negative Carotid Bruits Lungs: Clear to auscultation, No rhonchi, No wheeze, No rales, Diminished - Diminished in bilateral lung bases. Cardiovascular: Regular rate, Regular Rhythm, Normal S1, Normal S2, No murmurs Abdomen: Bowel Sounds Present, Soft, Non Tender, Non-Distended Extremities: No edema, Capillary Refill Less than 3 Seconds Skin: No rashes, No breakdown Musculoskeletal: No Tenderness to Palpation of Joints or Extremities Neurological: Cranial nerves II-XII grossly intact, - - Bilateral lower extremity weakness. Falls right after lifting the legs. Psych/Mental Status: Normal Affect, Appropriate Laboratory Results 12/12/18 00:00: WBC 11.4 H, RBC 2.84 L, Hgb 9.2 L, Hct 26.6 L, MCV 93.7, MCH 32.4 H, MCHC 34.6, RDW 16.9 H, RDW Differential 57.2 H, Plt Count 260, MPV 10.1, Immature Gran % (Auto) 0.300, Neut % (Auto) 77.6 H, Lymph % (Auto) 14.7 L, [place] % (Auto) 7.0, Eos % (Auto) 0.1, Baso % (Auto) 0.3, Absolute Neuts (auto) 8.8 H, Absolute Lymphs (auto) 1.68, Total Counted Not Reportable, Nucleated RBC % 0.7, Absolute Retic 0.09 12/12/18 00:00: Sodium 120 L, Potassium 1.7 L*, Chloride 73 L*, Carbon Dioxide 34.0 H, Anion Gap 13, BUN 10, Creatinine 0.98, Estim Creat Clear Calc 104.21, Est GFR (MDRD) Af Amer 111, Est GFR (MDRD) Non-Af 91, BUN/Creatinine Ratio 10.2, Glucose 158 H, Calcium 8.2 L, Phosphorus 2.6, Magnesium 1.9, Total Creatine Kinase 124, Troponin I < 0.015 12/12/18 00:00: Ethyl Alcohol < 3.0 12/12/18 00:15: Urine Color Yellow, Urine Clarity Sl. Cloudy, Urine pH 7.0, Ur Specific [place] 1.005, Urine Protein 30 H, Urine Glucose (UA) Normal, Urine Ketones Negative, Urine Occult Blood 10 H, Urine Nitrite Negative, Urine Bilirubin 1 H, Urine Urobilinogen 4 H, Ur Leukocyte Esterase 25 H, Urine RBC 0-5 SEEN, Urine WBC 0-5 SEEN, Ur Squamous Epith Cells 0-5 SEEN, Amorphous Sediment 1+, Urine Bacteria 0 SEEN, Urine Mucus 0 SEEN 12/12/18 00:15: Urine Opiates Screen NEGATIVE, Urine Methadone Screen NEGATIVE, Ur Barbiturates Screen NEGATIVE, Ur Phencyclidine Scrn NEGATIVE, Ur Amphetamines Screen NEGATIVE, U Methamphetamin-MDMA NEGATIVE, U Benzodiazepines Scrn NEGATIVE, Urine Cocaine Screen NEGATIVE, U Cannabinoids Screen NEGATIVE, Ur Drug Screen Comment 12/12/18 02:45: Magnesium 1.7 12/12/18 02:45: Hemoglobin A1c 5.5 12/12/18 02:45: Troponin I < 0.015 12/12/18 02:45: Ur Random Sodium 12, Urine Creatinine 25.30, Urine Potassium 1.0, Urine Chloride 11 12/12/18 06:00: Sodium 125 L, Potassium 2.1 L*, Chloride 76 L, Carbon Dioxide 37.0 H, Anion Gap 12, BUN 9, Creatinine 0.69 L, Estim Creat Clear Calc 145.28, Est GFR (MDRD) Af Amer 166, Est GFR (MDRD) Non-Af 137, BUN/Creatinine Ratio 13.0, Glucose 143 H, Calcium 7.7 L, Troponin I < 0.015 12/12/18 06:00: Total Bilirubin 1.10 H, Direct Bilirubin 0.44 H, AST 106 H, ALT 26, Alkaline Phosphatase 176 H, Total Protein 6.3 L, Albumin 2.2 L, Globulin 4.1 Current Medications Acetaminophen (Tylenol) 650 mg PO Q6H PRN PRN PRN Reason: Mild Pain (1-3)/Temp > 100.7 F Chlordiazepoxide (Librium) 50 mg PO Q6H JOSE; Taper Stop: 12/15/18 07:59 Last Admin: 12/12/18 06:21 Dose: 50 mg Documented by: Dextrose (D50w Syringe) 0 gm IV X1 PRN; Protocol PRN Reason: Hypoglycemia Enoxaparin Sodium (Lovenox) 40 mg SC DAILY@1000 JOSE Folic Acid (Folic Acid) 1 mg PO DAILYCM [facility] Stop: 12/14/18 08:01 Glucagon () 1 mg IM .X1 PRN PRN Reason: Hypoglycemia Potassium Chloride 40 meq/ (Sodium Chloride) 1,020 mls @ 100 mls/hr IV .[id number] [facility] Stop: 12/12/18 22:00 Last Admin: 12/12/18 03:29 Dose: 100 mls/hr Documented by: Sodium Chloride () 250 mls @ 15 mls/hr IV .[id number] PRN PRN Reason: SALINE FLUSH Lorazepam (Ativan) 2 mg IV X1 PRN PRN Reason: Seizure Multivitamins (Multivitamin) [facility] Nicotine (Nicoderm Cq (Pbkc)) 14 mg TRANSDERM. DAILY [facility] Last Admin: 12/12/18 03:21 Dose: 14 mg Documented by: Ondansetron HCl (Zofran) 4 mg IV Q8H PRN PRN PRN Reason: NAUSEA/VOMITING Potassium Chloride (K-Dur) 40 meq [facility] Sodium Chloride () 10 - 40 ml IV UD PRN PRN Reason: SALINE FLUSH Thiamine HCl (Vitamin B1) 100 mg PO DAILYCM [facility] Stop: 12/14/18 08:01 Medical Necessity - Tobacco Use Smoking Status: Light Smoker (<10/day) Tobacco Use: Cigarettes Assessment/Plan All Active Problems (Last Updated 12/12/18 @ 02:18 by Phil Granados MD) Hypokalemia (Acute) Hyponatremia (Acute) Hypochloremia (Acute) Metabolic alkalosis (Acute) The patient is a 38 year old M with a significant history of chronic alcohol use and dependence, reportedly quit about a month ago is being admitted to ICU through emergency room for progressive worsening of bilateral lower extremities weakness with inability to walk or stand and some weakness in arms. The patient was found severe hypokalemia, hyponatremia and metabolic alkalosis, bicarb 34, anion gap 13. 1. Bilateral lower extremity weakness/paresis secondary to severe hypokalemia, exact etiology unclear: Patient denies nausea vomiting but had mild diarrhea as per the ER physician. Denies abdominal pain. Magnesium is 1.7. Phosphorus 2.6. On IV KCl replacement protocol. The patient has not been on diuretic or any other home medication. Last K 2.1 2. Severe electrolyte abnormality with severe hypokalemia, hyponatremia, hypochloremia with metabolic alkalosis: Bicarb was 34 decreased to 37. Consult nephrology for further opinion for the cause of electrolyte imbalance. 3. Abnormal EKG: EKG reviewed and shows sinus tachycardia at 110 bpm with slight prolonged QTC, 498 ms. QT interval is 368 ms. P wave is prominent. Nonspecific ST-T abnormality with T inversion in V1 to V5 possible hypokalemia EKG changes 4. History of chronic alcohol use and dependency with recent quit as per patient: Alcohol level less than 3.0. LFT shows ALT 26, AST 106, alk phos 176, total bili 1.1. Albumin is very low 2.2, globulin 4.1 suggestive of inverse A/G ratio secondary to alcohol-related liver disease/chronic alcoholic hepatitis. Mild neutrophilic leukocytosis possible reactive. 5. Normocytic normochromic anemia: H&H 9.2/26. MCV 93. On presentation his hemoglobin was 9.2 MCV was 93.7. Likely from alcoholism. Anemia work-up ordered. Other chronic comorbidities include chronic tobacco use/nicotine dependence, recent left wrist fracture: Patient follows [facility] orthopedics surgeon. Has Matt wrap bandage. T= DVT prophylaxis High risk because of inability to move Subcutaneous Lovenox ordered. Laboratory Results 12/12/18 00:00: WBC 11.4 H, RBC 2.84 L, Hgb 9.2 L, Hct 26.6 L, MCV 93.7, MCH 32.4 H, MCHC 34.6, RDW 16.9 H, RDW Differential 57.2 H, Plt Count 260, MPV 10.1, Immature Gran % (Auto) 0.300, Neut % (Auto) 77.6 H, Lymph % (Auto) 14.7 L, [place] % (Auto) 7.0, Eos % (Auto) 0.1, Baso % (Auto) 0.3, Absolute Neuts (auto) 8.8 H, Absolute Lymphs (auto) 1.68, Total Counted Not Reportable, Nucleated RBC % 0.7, Absolute Retic 0.09 12/12/18 00:00: Sodium 120 L, Potassium 1.7 L*, Chloride 73 L*, Carbon Dioxide 34.0 H, Anion Gap 13, BUN 10, Creatinine 0.98, Estim Creat Clear Calc 104.21, Est GFR (MDRD) Af Amer 111, Est GFR (MDRD) Non-Af 91, BUN/Creatinine Ratio 10.2, Glucose 158 H, Calcium 8.2 L, Phosphorus 2.6, Magnesium 1.9, Total Creatine Kinase 124, Troponin I < 0.015 12/12/18 00:00: Ethyl Alcohol < 3.0 12/12/18 00:15: Urine Color Yellow, Urine Clarity Sl. Cloudy, Urine pH 7.0, Ur Specific [place] 1.005, Urine Protein 30 H, Urine Glucose (UA) Normal, Urine Ketones Negative, Urine Occult Blood 10 H, Urine Nitrite Negative, Urine Bilirubin 1 H, Urine Urobilinogen 4 H, Ur Leukocyte Esterase 25 H, Urine RBC 0-5 SEEN, Urine WBC 0-5 SEEN, Ur Squamous Epith Cells 0-5 SEEN, Amorphous Sediment 1+, Urine Bacteria 0 SEEN, Urine Mucus 0 SEEN 12/12/18 00:15: Urine Opiates Screen NEGATIVE, Urine Methadone Screen NEGATIVE, Ur Barbiturates Screen NEGATIVE, Ur Phencyclidine Scrn NEGATIVE, Ur Amphetamines Screen NEGATIVE, U Methamphetamin-MDMA NEGATIVE, U Benzodiazepines Scrn NEGATIVE, Urine Cocaine Screen NEGATIVE, U Cannabinoids Screen NEGATIVE, Ur Drug Screen Comment 12/12/18 02:45: Magnesium 1.7 12/12/18 02:45: Hemoglobin A1c 5.5 12/12/18 02:45: Troponin I < 0.015 12/12/18 02:45: Ur Random Sodium 12, Urine Creatinine 25.30, Urine Potassium 1.0, Urine Chloride 11 12/12/18 06:00: Sodium 125 L, Potassium 2.1 L*, Chloride 76 L, Carbon Dioxide 37.0 H, Anion Gap 12, BUN 9, Creatinine 0.69 L, Estim Creat Clear Calc 145.28, Est GFR (MDRD) Af Amer 166, Est GFR (MDRD) Non-Af 137, BUN/Creatinine Ratio 13.0, Glucose 143 H, Calcium 7.7 L, Troponin I < 0.015 12/12/18 06:00: Total Bilirubin 1.10 H, Direct Bilirubin 0.44 H, AST 106 H, ALT 26, Alkaline Phosphatase 176 H, Total Protein 6.3 L, Albumin 2.2 L, Globulin 4.1
[2018-12-12] MEDS: Enoxaparin 40 MG/0.4 ML Syringe SC (09:59)
[2018-12-12] MEDS: Thiamine Hydrochloride 100 MG Tablet PO (09:59)
[2018-12-12] MEDS: Folic Acid 1 MG Tablet PO (09:59)
[2018-12-12 14:59] LABS: Anion Gap 7 (5-15); BUN 9 mg/dL (7-18); BUN/Creat Ratio 14.6 RATIO (10-20); Calcium,Total 7.5 mg/dL (8.5-10.1); Chloride 81 mmol/L (98-107); Creatinine, Serum 0.62 mg/dL (0.70-1.30); EST Glomerular Filtration Rate 157 mL/min (>60); Est Glom Filt Rate - Afr Amer 190 mL/min (>60); Estimated Creatinine Clearance 161.68 ml/min; Glucose 145 mg/dL (74-106); Potassium 2.5 mmol/L (3.5-5.1); Sodium Level 125 mmol/L (136-145)
--- NOTE | 2018-12-12 16:29 | PCM.CONS.R ---
Problem List (1) Hypokalemia Status: Acute (2) Hyponatremia Status: Acute (3) Hypochloremia Status: Acute (4) Metabolic alkalosis Status: Acute Consultation - Renal PCP/ Referring MD: Requesting physician: [] Primary care physician: Leandro Garza MD - History of Present Illness History of Present Illness: The patient is a 38 year old M past medical history of alcoholism patient with quit alcohol drinking a month ago. Patient said he has not been able to to walk for the last month. He has not been eating for the last month to because of his weakness. Patient started to have difficulty breathing then he decided to seek medical attention. In the emergency room, he was found to have low potassium at 1.7, low sodium level at 120 along with metabolic alkalosis. Patient received a liter of normal saline and then was kept on normal saline with KCl at 150 cc/h. Patient received 60 mg of oral potassium too Potassium this morning 2.5. Sodium improved from 120->125. IV fluid was stopped. Currently patient receiving 60 mEq of IV potassium. Magnesium and phosphorus are within normal limits. Patient still complaining of severe extremities weakness. He said his breathing is better. He is slightly tachycardic between 100-110 Patient stated that he had occasional diarrhea episodes during the last month. No nausea no vomiting. Denies any headache today. No chest pain. Review of system: 12 system review is negative except for what mentioned in HPI [] - Allergies Allergies: Allergies bee venom protein (honey bee) Allergy (Verified 12/11/18 23:48) Anaphylaxis Penicillins [PCN] Adverse Reaction (Verified 12/11/18 23:48) Upset Stomach - Current Medications Current Medications: Current Medications Acetaminophen (Tylenol) 650 mg PO Q6H PRN PRN PRN Reason: Mild Pain (1-3)/Temp > 100.7 F Chlordiazepoxide (Librium) 50 mg PO Q6H JOSE; Taper Stop: 12/15/18 07:59 Last Admin: 12/12/18 13:55 Dose: 50 mg Documented by: Dextrose (D50w Syringe) 0 gm IV X1 PRN; Protocol PRN Reason: Hypoglycemia Enoxaparin Sodium (Lovenox) 40 mg SC DAILY@1000 JOSE Last Admin: 12/12/18 09:59 Dose: 40 mg Documented by: Folic Acid (Folic Acid) 1 mg PO DAILYCM [facility] Stop: 12/14/18 08:01 Last Admin: 12/12/18 09:59 Dose: 1 mg Documented by: Glucagon () 1 mg IM .X1 PRN PRN Reason: Hypoglycemia Sodium Chloride () 250 mls @ 15 mls/hr IV .[id number] PRN PRN Reason: SALINE FLUSH Potassium Chloride () 10 meq in 100 mls @ 100 mls/hr IV BOLUS Q1H [facility] Stop: 12/12/18 17:29 Last Admin: 12/12/18 15:12 Dose: 100 mls/hr Documented by: Lorazepam (Ativan) 2 mg IV X1 PRN PRN Reason: Seizure Nicotine (Nicoderm Cq (Pbkc)) 14 mg TRANSDERM. DAILY [facility] Last Admin: 12/12/18 09:59 Dose: 14 mg Documented by: Nutritional Formula (Lactose Free) (Ensure Enlive) 120 ml PO 4X/DAY [facility] Last Admin: 12/12/18 13:59 Dose: 120 ml Documented by: Ondansetron HCl (Zofran) 4 mg IV Q8H PRN PRN PRN Reason: NAUSEA/VOMITING Potassium Chloride (K-Dur) 60 meq PO X1 [facility] Stop: 12/12/18 22:01 Sodium Chloride () 10 - 40 ml IV UD PRN PRN Reason: SALINE FLUSH Thiamine [facility] ([facility]itamin B1) [facility] Stop: 12/14/18 08:01 Last Admin: 12/12/18 09:59 Dose: 100 mg Documented by: - Past Surgical History Surgical History: no surgical history - Social History Smoking Status: Light Smoker (<10/day) Alcohol: Sober - Family History Maternal History Items: Cancer, Diabetes, Heart Disease, - - Thyroid Paternal History Items: Heart Disease Patient Problems: Active and Suspected Problems (Last Updated 12/12/18 @ 02:18 by Phil Granados MD) Hypokalemia (Acute) Hyponatremia (Acute) Hypochloremia (Acute) Metabolic alkalosis (Acute) - Physical Exam General: Alert, Oriented x3 HEENT: Atraumatic Oral: Dry Mucosa Neck: Supple, No JVD Lungs: Clear to auscultation, Normal air movement, No rhonchi, No wheeze Cardiovascular: Regular Rhythm, Normal S1, Normal S2, Tachycardic Abdomen: Bowel Sounds Present, Soft, Hypoactive Bowel Sounds, Distended Extremities: No clubbing, No cyanosis, No edema Skin: No rashes Musculoskeletal: No Muscle Wasting Lymphatic: No Cervical, Supraclavicular, or Inguinal Adenopathy Neurological: Cranial nerves II-XII grossly intact Psych/Mental Status: Appropriate Vital Signs Temp Pulse Resp BP Pulse Ox 98.6 F 112 H 29 H 106/68 98 12/12/18 12:00 12/12/18 16:00 12/12/18 15:00 12/12/18 15:00 12/12/18 15:00 Oxygen Delivery Method Room Air Weight: 69.4 kg Body Mass Index (BMI) 22.6 Intake and Output for Last 24 Hours 12/10/18 12/11/18 12/12/18 23:59 23:59 23:59 Intake Total 2257 / 2257 Output Total 1225 / 1225 Balance 1032 / 1032 Laboratory Tests Past 24 Hrs 12/12/18 12/12/18 12/12/18 00:00 00:00 00:00 WBC 11.4 H RBC 2.84 L Hgb 9.2 L Hct 26.6 L MCV 93.7 MCH 32.4 H MCHC 34.6 RDW 16.9 H RDW Differential 57.2 H Plt Count 260 MPV 10.1 Immature Gran % (Auto) 0.300 Neut % (Auto) 77.6 H Lymph % (Auto) 14.7 L [place] % (Auto) 7.0 Eos % (Auto) 0.1 Baso % (Auto) 0.3 Absolute Neuts (auto) 8.8 H Absolute Lymphs (auto) 1.68 Total Counted Not Reportable Nucleated RBC % 0.7 Absolute Retic 0.09 Sodium 120 L Potassium 1.7 L* Chloride 73 L* Carbon Dioxide 34.0 H Anion Gap 13 BUN 10 Creatinine 0.98 Estim Creat Clear Calc 104.21 Est GFR (MDRD) Af Amer 111 Est GFR (MDRD) Non-Af 91 BUN/Creatinine Ratio 10.2 Glucose 158 H Hemoglobin A1c Calcium 8.2 L Phosphorus 2.6 Magnesium 1.9 Total Bilirubin Direct Bilirubin AST ALT Alkaline Phosphatase Total Creatine Kinase 124 Troponin I < 0.015 Total Protein Albumin Globulin Urine Color Urine Clarity Urine pH Ur Specific [place] Urine Protein Urine Glucose (UA) Urine Ketones Urine Occult Blood Urine Nitrite Urine Bilirubin Urine Urobilinogen Ur Leukocyte Esterase Urine RBC Urine WBC Ur Squamous Epith Cells Amorphous Sediment Urine Bacteria Urine Mucus Ur Random Sodium Urine Creatinine Urine Potassium Urine Chloride Urine Opiates Screen Urine Methadone Screen Ur Barbiturates Screen Ur Phencyclidine Scrn Ur Amphetamines Screen U Methamphetamin-MDMA U Benzodiazepines Scrn Urine Cocaine Screen U Cannabinoids Screen Ur Drug Screen Comment Ethyl Alcohol < 3.0 12/12/18 12/12/18 12/12/18 00:15 00:15 02:45 WBC RBC Hgb Hct MCV MCH MCHC RDW RDW Differential Plt Count MPV Immature Gran % (Auto) Neut % (Auto) Lymph % (Auto) [place] % (Auto) Eos % (Auto) Baso % (Auto) Absolute Neuts (auto) Absolute Lymphs (auto) Total Counted Nucleated RBC % Absolute Retic Sodium Potassium Chloride Carbon Dioxide Anion Gap BUN Creatinine Estim Creat Clear Calc Est GFR (MDRD) Af Amer Est GFR (MDRD) Non-Af BUN/Creatinine Ratio Glucose Hemoglobin A1c Calcium Phosphorus Magnesium 1.7 Total Bilirubin Direct Bilirubin AST ALT Alkaline Phosphatase Total Creatine Kinase Troponin I Total Protein Albumin Globulin Urine Color Yellow Urine Clarity Sl. Cloudy Urine pH 7.0 Ur Specific [place] 1.005 Urine Protein 30 H Urine Glucose (UA) Normal Urine Ketones Negative Urine Occult Blood 10 H Urine Nitrite Negative Urine Bilirubin 1 H Urine Urobilinogen 4 H Ur Leukocyte Esterase 25 H Urine RBC 0-5 SEEN Urine WBC 0-5 SEEN Ur Squamous Epith Cells 0-5 SEEN Amorphous Sediment 1+ Urine Bacteria 0 SEEN Urine Mucus 0 SEEN Ur Random Sodium Urine Creatinine Urine Potassium Urine Chloride Urine Opiates Screen NEGATIVE Urine Methadone Screen NEGATIVE Ur Barbiturates Screen NEGATIVE Ur Phencyclidine Scrn NEGATIVE Ur Amphetamines Screen NEGATIVE U Methamphetamin-MDMA NEGATIVE U Benzodiazepines Scrn NEGATIVE Urine Cocaine Screen NEGATIVE U Cannabinoids Screen NEGATIVE Ur Drug Screen Comment Ethyl Alcohol 12/12/18 12/12/18 12/12/18 02:45 02:45 02:45 WBC RBC Hgb Hct MCV MCH MCHC RDW RDW Differential Plt Count MPV Immature Gran % (Auto) Neut % (Auto) Lymph % (Auto) [place] % (Auto) Eos % (Auto) Baso % (Auto) Absolute Neuts (auto) Absolute Lymphs (auto) Total Counted Nucleated RBC % Absolute Retic Sodium Potassium Chloride Carbon Dioxide Anion Gap BUN Creatinine Estim Creat Clear Calc Est GFR (MDRD) Af Amer Est GFR (MDRD) Non-Af BUN/Creatinine Ratio Glucose Hemoglobin A1c 5.5 Calcium Phosphorus Magnesium Total Bilirubin Direct Bilirubin AST ALT Alkaline Phosphatase Total Creatine Kinase Troponin I < 0.015 Total Protein Albumin Globulin Urine Color Urine Clarity Urine pH Ur Specific [place] Urine Protein Urine Glucose (UA) Urine Ketones Urine Occult Blood Urine Nitrite Urine Bilirubin Urine Urobilinogen Ur Leukocyte Esterase Urine RBC Urine WBC Ur Squamous Epith Cells Amorphous Sediment Urine Bacteria Urine Mucus Ur Random Sodium 12 Urine Creatinine 25.30 Urine Potassium 1.0 Urine Chloride 11 Urine Opiates Screen Urine Methadone Screen Ur Barbiturates Screen Ur Phencyclidine Scrn Ur Amphetamines Screen U Methamphetamin-MDMA U Benzodiazepines Scrn Urine Cocaine Screen U Cannabinoids Screen Ur Drug Screen Comment Ethyl Alcohol 12/12/18 12/12/18 12/12/18 06:00 06:00 14:20 WBC RBC Hgb Hct MCV MCH MCHC RDW RDW Differential Plt Count MPV Immature Gran % (Auto) Neut % (Auto) Lymph % (Auto) [place] % (Auto) Eos % (Auto) Baso % (Auto) Absolute Neuts (auto) Absolute Lymphs (auto) Total Counted Nucleated RBC % Absolute Retic Sodium 125 L 125 L Potassium 2.1 L* 2.5 L* Chloride 76 L 81 L Carbon Dioxide 37.0 H 37.0 H Anion Gap 12 7 BUN 9 9 Creatinine 0.69 L 0.62 L Estim Creat Clear Calc 145.28 161.68 Est GFR (MDRD) Af Amer 166 190 Est GFR (MDRD) Non-Af 137 157 BUN/Creatinine Ratio 13.0 14.6 Glucose 143 H 145 H Hemoglobin A1c Calcium 7.7 L 7.5 L Phosphorus Magnesium Total Bilirubin 1.10 H Direct Bilirubin 0.44 H AST 106 H ALT 26 Alkaline Phosphatase 176 H Total Creatine Kinase Troponin I < 0.015 Total Protein 6.3 L Albumin 2.2 L Globulin 4.1 Urine Color Urine Clarity Urine pH Ur Specific [place] Urine Protein Urine Glucose (UA) Urine Ketones Urine Occult Blood Urine Nitrite Urine Bilirubin Urine Urobilinogen Ur Leukocyte Esterase Urine RBC Urine WBC Ur Squamous Epith Cells Amorphous Sediment Urine Bacteria Urine Mucus Ur Random Sodium Urine Creatinine Urine Potassium Urine Chloride Urine Opiates Screen Urine Methadone Screen Ur Barbiturates Screen Ur Phencyclidine Scrn Ur Amphetamines Screen U Methamphetamin-MDMA U Benzodiazepines Scrn Urine Cocaine Screen U Cannabinoids Screen Ur Drug Screen Comment Ethyl Alcohol Assessment/Plan All Active Problems (Last Updated 12/12/18 @ 02:18 by Phil Granados MD) Hypokalemia (Acute) Hyponatremia (Acute) Hypochloremia (Acute) Metabolic alkalosis (Acute) 1-severe hypokalemia with paralysis. Patient said that the first time for him to not be able to walk. Initially presenting potassium level was 1.7. Potassium level improved with replacement. Last potassium level 2.5. I will continue 60 mEq IV potassium replacement. I will give the patient oral KCl 60 mEq now and at 10 PM. I will check potassium level in the morning. Last magnesium level is within normal limits. I will check TSH level. 2-hyponatremia with hypovolemia. Initial presenting level of sodium was 120. Sodium level improved appropriately to 125. I will hold further IV maintenance fluid to avoid pontine demyelinating. Continue to monitor sodium level. 3-metabolic alkalosis. Most probably related to contraction. Last bicarb level 37. Should improve with volume expansion. Thank you for the consult. Renal team will continue to follow. Please call if any question at [phone]
[2018-12-12 20:08] LABS: BUN 8 mg/dL (7-18); Creatinine, Serum 0.56 mg/dL (0.70-1.30); EST Glomerular Filtration Rate 173 mL/min (>60); Estimated Creatinine Clearance 179.01 ml/min; Glucose 129 mg/dL (74-106)
[2018-12-12 20:09] LABS: Anion Gap 6 (5-15); BUN 7 mg/dL (7-18); BUN/Creat Ratio 12.6 RATIO (10-20); BUN/Creat Ratio 14.2 RATIO (10-20); Calcium,Total 7.5 mg/dL (8.5-10.1); Calcium,Total 7.6 mg/dL (8.5-10.1); Chloride 84 mmol/L (98-107); Chloride 87 mmol/L (98-107); Creatinine, Serum 0.56 mg/dL (0.70-1.30); EST Glomerular Filtration Rate 176 mL/min (>60); Est Glom Filt Rate - Afr Amer 210 mL/min (>60); Est Glom Filt Rate - Afr Amer 214 mL/min (>60); Estimated Creatinine Clearance 179.01 ml/min; Glucose 129 mg/dL (74-106); Phosphorus 3.7 mg/dL (2.5-4.9); Potassium 2.6 mmol/L (3.5-5.1); Potassium 2.7 mmol/L (3.5-5.1); Sodium Level 128 mmol/L (136-145); Sodium Level 132 mmol/L (136-145)
[2018-12-12] MEDS: Senna/Docusate Sodium 1 Tablet PO (22:30)
[2018-12-13] VITALS (17 sets, daily range): BP systolic 90–110; BP diastolic 60–87; PULSE 100–108; RESP 16–30; TEMP 36.2–36.7; O2SAT 91–98
[2018-12-13 04:52] LABS: Hematocrit 24.5 % (40-54); Hemoglobin 8.5 g/dl (13.0-16.5); Mean Corp Hgb Conc 34.7 g/gl (32-36); Mean Corpuscular Hgb 33.3 pg (27.0-32.0); Mean Corpuscular Volume 96.1 fL (80-94); Mean Platelet Vol. 9.7 fl (6.2-12.0); Platelet Count 181 K/mm3 (150-450); RBC Distribution Width CV 16.1 % (11.6-14.6); RBC Distribution Width SD 52.8 fl (35.1-43.9); Red Blood Count 2.55 M/mm3 (4.6-6.2); White Blood Count 7.5 K/mm3 (4.4-11.0)
[2018-12-13 04:54] LABS: Scan Indicated on CBC? Y/N NO
[2018-12-13 05:03] LABS: BUN 7 mg/dL (7-18); BUN/Creat Ratio 14.5 RATIO (10-20); Calcium,Total 8.2 mg/dL (8.5-10.1); Chloride 88 mmol/L (98-107); Creatinine, Serum 0.48 mg/dL (0.70-1.30); EST Glomerular Filtration Rate 207 mL/min (>60); Est Glom Filt Rate - Afr Amer 251 mL/min (>60); Estimated Creatinine Clearance 208.84 ml/min; Glucose 109 mg/dL (74-106); Magnesium 1.9 mg/dL (1.6-2.6); Phosphorus 4.3 mg/dL (2.5-4.9); Potassium 3.1 mmol/L (3.5-5.1); Sodium Level 134 mmol/L (136-145)
[2018-12-13 05:04] LABS: Anion Gap 8 (5-15)
--- NOTE | 2018-12-13 06:29 | PN_ITS ---
Subjective: The patient was seen and examined at the bedside this morning. Events from the last 24 hours have been reviewed. The patient is currently afebrile, hemodynamically stable and maintaining appropriate oxygen saturations on room air. Sodium is improved this morning to 134. Potassium remains low at 3.1. Magnesium and phosphorus are both within normal limits. The patient's lower extremity weakness persists. Objective: The patient's most recent lab work, culture data and imaging studies have all been personally reviewed. General: Alert, Cooperative, No apparent distress HEENT: Atraumatic, PERRLA, Normocephalic Oral: No Gingival or Mucosal Lesions/ Ulcerations Neck: Supple, No Nodes, Trachea Midline Lungs: No rhonchi, No wheeze, No rales, Diminished Cardiovascular: Normal S1, Normal S2, No murmurs, Tachycardic Abdomen: Soft, Non Tender, Non-Distended Extremities: No clubbing, No cyanosis, No edema Skin: - - No significant change from previous Musculoskeletal: No Tenderness to Palpation of Joints or Extremities Lymphatic: No Cervical, Supraclavicular, or Inguinal Adenopathy Neurological: - - + Lower extremity weakness Psych/Mental Status: Flat Affect Vital Signs Temp Pulse Resp BP Pulse Ox 98.0 F 101 H 24 H 90/61 93 12/13/18 05:00 12/13/18 06:00 12/13/18 06:00 12/13/18 06:00 12/13/18 05:00 Oxygen Delivery Method Room Air Weight: 158 lb 1.143 oz Body Mass Index (BMI) 22.6 Intake and Output for Last 24 Hours 12/11/18 12/12/18 12/13/18 23:59 23:59 23:59 Intake Total 2257 / 3812 1555 / 1555 Output Total 1925 / 2275 750 / 750 Balance 332 / 1537 805 / 805 Labs (Last 48 Hours) 12/12/18 12/12/18 12/12/18 00:00 00:00 00:00 WBC 11.4 H RBC 2.84 L Hgb 9.2 L Hct 26.6 L MCV 93.7 MCH 32.4 H MCHC 34.6 RDW 16.9 H RDW Differential 57.2 H Plt Count 260 MPV 10.1 Immature Gran % (Auto) 0.300 Neut % (Auto) 77.6 H Lymph % (Auto) 14.7 L Ocean % (Auto) 7.0 Eos % (Auto) 0.1 Baso % (Auto) 0.3 Absolute Neuts (auto) 8.8 H Absolute Lymphs (auto) 1.68 Total Counted Not Reportable Nucleated RBC % 0.7 Absolute Retic 0.09 Sodium 120 L Potassium 1.7 L* Chloride 73 L* Carbon Dioxide 34.0 H Anion Gap 13 BUN 10 Creatinine 0.98 Estim Creat Clear Calc 104.21 Est GFR (MDRD) Af Amer 111 Est GFR (MDRD) Non-Af 91 BUN/Creatinine Ratio 10.2 Glucose 158 H Hemoglobin A1c Calcium 8.2 L Phosphorus 2.6 Magnesium 1.9 Total Bilirubin Direct Bilirubin AST ALT Alkaline Phosphatase Total Creatine Kinase 124 Troponin I < 0.015 Total Protein Albumin Globulin Urine Color Urine Clarity Urine pH Ur Specific [place] Urine Protein Urine Glucose (UA) Urine Ketones Urine Occult Blood Urine Nitrite Urine Bilirubin Urine Urobilinogen Ur Leukocyte Esterase Urine RBC Urine WBC Ur Squamous Epith Cells Amorphous Sediment Urine Bacteria Urine Mucus Ur Random Sodium Urine Creatinine Urine Potassium Urine Chloride Urine Opiates Screen Urine Methadone Screen Ur Barbiturates Screen Ur Phencyclidine Scrn Ur Amphetamines Screen U Methamphetamin-MDMA U Benzodiazepines Scrn Urine Cocaine Screen U Cannabinoids Screen Ur Drug Screen Comment Ethyl Alcohol < 3.0 12/12/18 12/12/18 12/12/18 00:15 00:15 02:45 WBC RBC Hgb Hct MCV MCH MCHC RDW RDW Differential Plt Count MPV Immature Gran % (Auto) Neut % (Auto) Lymph % (Auto) Ocean % (Auto) Eos % (Auto) Baso % (Auto) Absolute Neuts (auto) Absolute Lymphs (auto) Total Counted Nucleated RBC % Absolute Retic Sodium Potassium Chloride Carbon Dioxide Anion Gap BUN Creatinine Estim Creat Clear Calc Est GFR (MDRD) Af Amer Est GFR (MDRD) Non-Af BUN/Creatinine Ratio Glucose Hemoglobin A1c Calcium Phosphorus Magnesium 1.7 Total Bilirubin Direct Bilirubin AST ALT Alkaline Phosphatase Total Creatine Kinase Troponin I Total Protein Albumin Globulin Urine Color Yellow Urine Clarity Sl. Cloudy Urine pH 7.0 Ur Specific [place] 1.005 Urine Protein 30 H Urine Glucose (UA) Normal Urine Ketones Negative Urine Occult Blood 10 H Urine Nitrite Negative Urine Bilirubin 1 H Urine Urobilinogen 4 H Ur Leukocyte Esterase 25 H Urine RBC 0-5 SEEN Urine WBC 0-5 SEEN Ur Squamous Epith Cells 0-5 SEEN Amorphous Sediment 1+ Urine Bacteria 0 SEEN Urine Mucus 0 SEEN Ur Random Sodium Urine Creatinine Urine Potassium Urine Chloride Urine Opiates Screen NEGATIVE Urine Methadone Screen NEGATIVE Ur Barbiturates Screen NEGATIVE Ur Phencyclidine Scrn NEGATIVE Ur Amphetamines Screen NEGATIVE U Methamphetamin-MDMA NEGATIVE U Benzodiazepines Scrn NEGATIVE Urine Cocaine Screen NEGATIVE U Cannabinoids Screen NEGATIVE Ur Drug Screen Comment Ethyl Alcohol 12/12/18 12/12/18 12/12/18 02:45 02:45 02:45 WBC RBC Hgb Hct MCV MCH MCHC RDW RDW Differential Plt Count MPV Immature Gran % (Auto) Neut % (Auto) Lymph % (Auto) Ocean % (Auto) Eos % (Auto) Baso % (Auto) Absolute Neuts (auto) Absolute Lymphs (auto) Total Counted Nucleated RBC % Absolute Retic Sodium Potassium Chloride Carbon Dioxide Anion Gap BUN Creatinine Estim Creat Clear Calc Est GFR (MDRD) Af Amer Est GFR (MDRD) Non-Af BUN/Creatinine Ratio Glucose Hemoglobin A1c 5.5 Calcium Phosphorus Magnesium Total Bilirubin Direct Bilirubin AST ALT Alkaline Phosphatase Total Creatine Kinase Troponin I < 0.015 Total Protein Albumin Globulin Urine Color Urine Clarity Urine pH Ur Specific [place] Urine Protein Urine Glucose (UA) Urine Ketones Urine Occult Blood Urine Nitrite Urine Bilirubin Urine Urobilinogen Ur Leukocyte Esterase Urine RBC Urine WBC Ur Squamous Epith Cells Amorphous Sediment Urine Bacteria Urine Mucus Ur Random Sodium 12 Urine Creatinine 25.30 Urine Potassium 1.0 Urine Chloride 11 Urine Opiates Screen Urine Methadone Screen Ur Barbiturates Screen Ur Phencyclidine Scrn Ur Amphetamines Screen U Methamphetamin-MDMA U Benzodiazepines Scrn Urine Cocaine Screen U Cannabinoids Screen Ur Drug Screen Comment Ethyl Alcohol 12/12/18 12/12/18 12/12/18 06:00 06:00 14:20 WBC RBC Hgb Hct MCV MCH MCHC RDW RDW Differential Plt Count MPV Immature Gran % (Auto) Neut % (Auto) Lymph % (Auto) Ocean % (Auto) Eos % (Auto) Baso % (Auto) Absolute Neuts (auto) Absolute Lymphs (auto) Total Counted Nucleated RBC % Absolute Retic Sodium 125 L 125 L Potassium 2.1 L* 2.5 L* Chloride 76 L 81 L Carbon Dioxide 37.0 H 37.0 H Anion Gap 12 7 BUN 9 9 Creatinine 0.69 L 0.62 L Estim Creat Clear Calc 145.28 161.68 Est GFR (MDRD) Af Amer 166 190 Est GFR (MDRD) Non-Af 137 157 BUN/Creatinine Ratio 13.0 14.6 Glucose 143 H 145 H Hemoglobin A1c Calcium 7.7 L 7.5 L Phosphorus Magnesium Total Bilirubin 1.10 H Direct Bilirubin 0.44 H AST 106 H ALT 26 Alkaline Phosphatase 176 H Total Creatine Kinase Troponin I < 0.015 Total Protein 6.3 L Albumin 2.2 L Globulin 4.1 Urine Color Urine Clarity Urine pH Ur Specific [place] Urine Protein Urine Glucose (UA) Urine Ketones Urine Occult Blood Urine Nitrite Urine Bilirubin Urine Urobilinogen Ur Leukocyte Esterase Urine RBC Urine WBC Ur Squamous Epith Cells Amorphous Sediment Urine Bacteria Urine Mucus Ur Random Sodium Urine Creatinine Urine Potassium Urine Chloride Urine Opiates Screen Urine Methadone Screen Ur Barbiturates Screen Ur Phencyclidine Scrn Ur Amphetamines Screen U Methamphetamin-MDMA U Benzodiazepines Scrn Urine Cocaine Screen U Cannabinoids Screen Ur Drug Screen Comment Ethyl Alcohol 12/12/18 12/12/18 12/13/18 19:30 19:30 04:40 WBC 7.5 RBC 2.55 L Hgb 8.5 L Hct 24.5 L MCV 96.1 H MCH 33.3 H MCHC 34.7 RDW 16.1 H RDW Differential 52.8 H Plt Count 181 MPV 9.7 Immature Gran % (Auto) Neut % (Auto) Lymph % (Auto) Ocean % (Auto) Eos % (Auto) Baso % (Auto) Absolute Neuts (auto) Absolute Lymphs (auto) Total Counted Nucleated RBC % Absolute Retic Sodium 128 L 132 L Potassium 2.6 L* 2.7 L* Chloride 84 L 87 L Carbon Dioxide 38.0 H 38.0 H Anion Gap 6 BUN 7 8 Creatinine 0.56 L 0.56 L Estim Creat Clear Calc 179.01 179.01 Est GFR (MDRD) Af Amer 214 210 Est GFR (MDRD) Non-Af 176 173 BUN/Creatinine Ratio 12.6 14.2 Glucose 129 H 129 H Hemoglobin A1c Calcium 7.6 L 7.5 L Phosphorus 3.7 Magnesium Total Bilirubin Direct Bilirubin AST ALT Alkaline Phosphatase Total Creatine Kinase Troponin I Total Protein Albumin 2.0 L Globulin Urine Color Urine Clarity Urine pH Ur Specific [place] Urine Protein Urine Glucose (UA) Urine Ketones Urine Occult Blood Urine Nitrite Urine Bilirubin Urine Urobilinogen Ur Leukocyte Esterase Urine RBC Urine WBC Ur Squamous Epith Cells Amorphous Sediment Urine Bacteria Urine Mucus Ur Random Sodium Urine Creatinine Urine Potassium Urine Chloride Urine Opiates Screen Urine Methadone Screen Ur Barbiturates Screen Ur Phencyclidine Scrn Ur Amphetamines Screen U Methamphetamin-MDMA U Benzodiazepines Scrn Urine Cocaine Screen U Cannabinoids Screen Ur Drug Screen Comment Ethyl Alcohol 12/13/18 04:40 WBC RBC Hgb Hct MCV MCH MCHC RDW RDW Differential Plt Count MPV Immature Gran % (Auto) Neut % (Auto) Lymph % (Auto) Ocean % (Auto) Eos % (Auto) Baso % (Auto) Absolute Neuts (auto) Absolute Lymphs (auto) Total Counted Nucleated RBC % Absolute Retic Sodium 134 L Potassium 3.1 L Chloride 88 L Carbon Dioxide 38.0 H Anion Gap 8 BUN 7 Creatinine 0.48 L Estim Creat Clear Calc 208.84 Est GFR (MDRD) Af Amer 251 Est GFR (MDRD) Non-Af 207 BUN/Creatinine Ratio 14.5 Glucose 109 H Hemoglobin A1c Calcium 8.2 L Phosphorus 4.3 Magnesium 1.9 Total Bilirubin Direct Bilirubin AST ALT Alkaline Phosphatase Total Creatine Kinase Troponin I Total Protein Albumin Globulin Urine Color Urine Clarity Urine pH Ur Specific [place] Urine Protein Urine Glucose (UA) Urine Ketones Urine Occult Blood Urine Nitrite Urine Bilirubin Urine Urobilinogen Ur Leukocyte Esterase Urine RBC Urine WBC Ur Squamous Epith Cells Amorphous Sediment Urine Bacteria Urine Mucus Ur Random Sodium Urine Creatinine Urine Potassium Urine Chloride Urine Opiates Screen Urine Methadone Screen Ur Barbiturates Screen Ur Phencyclidine Scrn Ur Amphetamines Screen U Methamphetamin-MDMA U Benzodiazepines Scrn Urine Cocaine Screen U Cannabinoids Screen Ur Drug Screen Comment Ethyl Alcohol Clinical Impression(s) from Imaging Studies Chest X-Ray 12/12/18 00:00 IMPRESSION: Pulmonary hypoexpansion and pulmonary edema. at 0054 Reported and signed by: Farhan Simpson MD Electronically Signed: Farhan Simpson MD at 0:53 EDT Tel , Service support , Brain CT 12/12/18 00:01 IMPRESSION: Trace brain atrophy. This is unusual for a patient of stated age 38 years. Differential diagnosis includes chronic illness, chronic alcohol abuse, chronic drug use, malnutrition, HIV, amongst other potential etiologies. ASPECT 10. Individualized dose optimization techniques were used for this CT. at 0037 Reported and signed by: Farhan Simpson MD Electronically Signed: Farhan Simpson MD at 0:36 EDT Tel , Service support , Medical Necessity - Tobacco Use Smoking Status: Light Smoker (<10/day) Tobacco Use: Cigarettes Assessment/Plan All Active Problems (Last Updated 12/12/18 @ 02:18 by Phil Granados MD) Hypokalemia (Acute) Hyponatremia (Acute) Hypochloremia (Acute) Metabolic alkalosis (Acute) RECOMMENDATIONS: 1. IV fluids per nephrology recommendations. 2. Continue aggressive electrolyte repletion. 3. Continue Librium, thiamine and folate. 4. Continue nicotine replacement therapy. IMPRESSIONS: 1. Hypokalemia with associated lower extremity paresis The exact etiology for the patient's hypokalemia is a bit unclear. It is unknown whether his metabolic alkalosis is contributing to his current state of potassium imbalance. His bicarbonate level was previously noted to be within normal limits in 2018. The patient's alkalosis may also be secondary to contraction as well. Regardless, at this time, the patient will be treated with supplemental IV fluids and aggressive electrolyte repletion to correct his metabolic derangements. Nephrology is following to assist in the management of this patient. 2. Hypovolemic hyponatremia Conservative use of normal saline supplemental IV fluids to prevent rapid overcorrection of the patient's serum sodium level. Continue frequent chemistry monitoring. 3. Chronic alcohol and tobacco dependency The patient has a long-standing history of daily alcohol use and does report a history of prior withdrawal. He will be monitored accordingly and maintained on a Librium taper. Continue thiamine and folate repletion. Continue nicotine replacement therapy. 4. Anemia The patient's anemia appears to be relatively new, as he was previously noted to have a hemoglobin level in the 15 to 16 g/dL range in 2018. Will send type and screen and check fecal occult blood. Check iron studies as well. Continue daily PPI therapy. This note was generated with [employer] software. It may contain incorrect words, spelling, and punctuation that were not noted in checking the note before signing. Code Visit Inpatient E&M: 69174 Subs Hosp L3
--- NOTE | 2018-12-13 07:25 | PN_ITS ---
Patient Problems: Active and Suspected Problems (Last Updated 12/12/18 @ 02:18 by Phil Granados MD) Hypokalemia (Acute) Hyponatremia (Acute) Hypochloremia (Acute) Metabolic alkalosis (Acute) Subjective: Patient is more hemodynamically stable. Heart rate in 100s. Patient did not had diarrhea the last 2 days. Gradual increase in potassium, last one 3.1. Patient still has paraparesis. Complaint of myalgia and lower legs, mainly in heels. Vitals/I&O's: Vital Signs Temp Pulse Resp BP Pulse Ox 98.0 F 101 H 24 H 90/61 93 12/13/18 05:00 12/13/18 06:00 12/13/18 06:00 12/13/18 06:00 12/13/18 05:00 Oxygen Delivery Method Room Air Weight: 158 lb 1.143 oz Body Mass Index (BMI) 22.6 Intake and Output for Last 24 Hours 12/11/18 12/12/18 12/13/18 23:59 23:59 23:59 Intake Total 2257 / 3812 1555 / 1555 Output Total 1925 / 2275 750 / 750 Balance 332 / 1537 805 / 805 General: Alert, Oriented x3, Cooperative HEENT: Atraumatic, PERRLA, EOMI, Normocephalic Neck: Supple, No JVD, Negative Carotid Bruits Lungs: Clear to auscultation, No rhonchi, No wheeze, No rales, Diminished Cardiovascular: Regular Rhythm, Normal S1, Normal S2, No murmurs, Tachycardic Abdomen: Bowel Sounds Present, Soft, Non Tender, Non-Distended, Hypoactive Bowel Sounds Extremities: No edema, Capillary Refill Less than 3 Seconds Skin: No rashes, No breakdown Musculoskeletal: No Tenderness to Palpation of Joints or Extremities Neurological: Cranial nerves II-XII grossly intact, - - Bilateral lower legs, 4/5 major joints Psych/Mental Status: Normal Affect, Appropriate Laboratory Results 12/12/18 06:00: Sodium 125 L, Potassium 2.1 L*, Chloride 76 L, Carbon Dioxide 37.0 H, Anion Gap 12, BUN 9, Creatinine 0.69 L, Estim Creat Clear Calc 145.28, Est GFR (MDRD) Af Amer 166, Est GFR (MDRD) Non-Af 137, BUN/Creatinine Ratio 13.0, Glucose 143 H, Calcium 7.7 L, Troponin I < 0.015 12/12/18 06:00: Total Bilirubin 1.10 H, Direct Bilirubin 0.44 H, AST 106 H, ALT 26, Alkaline Phosphatase 176 H, Total Protein 6.3 L, Albumin 2.2 L, Globulin 4.1 12/12/18 14:20: Sodium 125 L, Potassium 2.5 L*, Chloride 81 L, Carbon Dioxide 37.0 H, Anion Gap 7, BUN 9, Creatinine 0.62 L, Estim Creat Clear Calc 161.68, Est GFR (MDRD) Af Amer 190, Est GFR (MDRD) Non-Af 157, BUN/Creatinine Ratio 14.6, Glucose 145 H, Calcium 7.5 L 12/12/18 19:30: Sodium 128 L, Potassium 2.6 L*, Chloride 84 L, Carbon Dioxide 38.0 H, Anion Gap 6, BUN 7, Creatinine 0.56 L, Estim Creat Clear Calc 179.01, Est GFR (MDRD) Af Amer 214, Est GFR (MDRD) Non-Af 176, BUN/Creatinine Ratio 12.6, Glucose 129 H, Calcium 7.6 L 12/12/18 19:30: Sodium 132 L, Potassium 2.7 L*, Chloride 87 L, Carbon Dioxide 38.0 H, BUN 8, Creatinine 0.56 L, Estim Creat Clear Calc 179.01, Est GFR (MDRD) Af Amer 210, Est GFR (MDRD) Non-Af 173, BUN/Creatinine Ratio 14.2, Glucose 129 H , Calcium 7.5 L, Phosphorus 3.7, Albumin 2.0 L 12/13/18 04:40: WBC 7.5, RBC 2.55 L, Hgb 8.5 L, Hct 24.5 L, MCV 96.1 H, MCH 33.3 H, MCHC 34.7, RDW 16.1 H, RDW Differential 52.8 H, Plt Count 181, MPV 9.7 12/13/18 04:40: Sodium 134 L, Potassium 3.1 L, Chloride 88 L, Carbon Dioxide 38.0 H, Anion Gap 8, BUN 7, Creatinine 0.48 L, Estim Creat Clear Calc 208.84, Est GFR (MDRD) Af Amer 251, Est GFR (MDRD) Non-Af 207, BUN/Creatinine Ratio 14.5, Glucose 109 H, Calcium 8.2 L, Phosphorus 4.3, Magnesium 1.9 12/13/18 04:40: Iron Pending, TIBC Pending, Iron Saturation Pending, Ferritin Pending Current Medications Acetaminophen (Tylenol) 650 mg PO Q6H PRN PRN PRN Reason: Mild Pain (1-3)/Temp > 100.7 F Chlordiazepoxide (Librium) 50 mg PO Q8H JOSE; Taper Stop: 12/15/18 07:59 Last Admin: 12/12/18 23:00 Dose: 50 mg Documented by: Dextrose (D50w Syringe) 0 gm IV X1 PRN; Protocol PRN Reason: Hypoglycemia Enoxaparin Sodium (Lovenox) 40 mg SC DAILY@1000 JOSE Last Admin: 12/12/18 09:59 Dose: 40 mg Documented by: Folic Acid (Folic Acid) 1 mg PO DAILYCM JOSE Stop: 12/14/18 08:01 Last Admin: 12/12/18 09:59 Dose: 1 mg Documented by: Glucagon () 1 mg IM .X1 PRN PRN Reason: Hypoglycemia Sodium Chloride () 250 mls @ 15 mls/hr IV .[id number] PRN PRN Reason: SALINE FLUSH Lorazepam (Ativan) 2 mg IV X1 PRN PRN Reason: Seizure Nicotine (Nicoderm Cq (Pbkc)) 14 mg TRANSDERM. DAILY [facility] Last Admin: 12/12/18 09:59 Dose: 14 mg Documented by: Nutritional Formula (Lactose Free) (Ensure Enlive) 120 ml PO 4X/DAY [facility] Last Admin: 12/12/18 22:31 Dose: 120 ml Documented by: Ondansetron HCl (Zofran) 4 mg IV Q8H PRN PRN PRN Reason: NAUSEA/VOMITING Pantoprazole Sodium (Protonix) 40 mg PO DAILY [facility] Potassium Chloride (K-Dur) 60 meq PO X1 ONE Stop: 12/13/18 06:43 Senna/Docusate Sodium (Senokot-S, Natacha-Colace) 1 tablet PO BID [facility] Last Admin: 12/12/18 22:30 Dose: 1 tablet Documented by: Sodium Chloride () 10 - 40 ml IV UD PRN PRN Reason: SALINE FLUSH Thi[facility]amin B[facility]) [facility] Stop: 12/14/18 08:01 Last Admin: 12/12/18 09:59 Dose: 100 mg Documented by: Medical Necessity - Tobacco Use Smoking Status: Light Smoker (<10/day) Tobacco Use: Cigarettes Assessment/Plan All Active Problems (Last Updated 12/12/18 @ 02:18 by Phil Granados MD) Hypokalemia (Acute) Hyponatremia (Acute) Hypochloremia (Acute) Metabolic alkalosis (Acute) The patient is a 38 year old M with a significant history of chronic alcohol use and dependence, reportedly quit about a month ago is being admitted to ICU through emergency room for progressive worsening of bilateral lower extremities weakness with inability to walk or stand and some weakness in arms. The patient was found severe hypokalemia, hyponatremia and metabolic alkalosis, bicarb 34, anion gap 13. 1. Bilateral lower extremity weakness/paresis secondary to severe hypokalemia and hyponatremia: Patient denies nausea vomiting but had mild diarrhea as per the ER physician. Denies abdominal pain. Potassium, phosphorus and and sodium monitoring in place. On IV KCl replacement protocol and oral K-dur. Patient is stable to be transferred to floor 2. Severe electrolyte abnormality with severe hypokalemia, hyponatremia, hypochloremia with metabolic alkalosis, most likely from contraction alkalosis although patient denies severe loss of fluid.: There is no not much improvement in bicarb, stayed at 38. Anion gap 8. Last K3.1. Urine electrolytes are low, sodium 12, creatinine 25.3, potassium 1 great length 3. Abnormal EKG: EKG reviewed and shows sinus tachycardia at 110 bpm with slight prolonged QTC, 498 ms. QT interval is 368 ms. P wave is prominent. Nonspecific ST-T abnormality with T inversion in V1 to V5 possible hypokalemic EKG changes. QT is 320 ms. 4. History of chronic alcohol use and dependency with recent quit as per patie nt: Alcohol level less than 3.0. LFT shows ALT 26, AST 106, alk phos 176, total bili 1.1. Albumin is very low 2.2, globulin 4.1 suggestive of inverse A/G ratio secondary to alcohol-related liver disease/chronic alcoholic hepatitis. Mild neutrophilic leukocytosis possible reactive. 5. Normocytic normochromic anemia: H&H 9.2/26. MCV 93. Patient has decreased to 8.5/24.5. Likely from alcoholism. Anemia work-up shows anemia secondary to chronic disease. TIBC is low, ferritin high significant 9. Other chronic comorbidities include chronic tobacco use/nicotine dependence, recent left wrist fracture: Patient follows [facility] [place] orthopedics surgeon. Has Matt wrap bandage. T= DVT prophylaxis High risk because of inability to move Subcutaneous Lovenox ordered. Laboratory Results 12/12/18 06:00: Total Bilirubin 1.10 H, Direct Bilirubin 0.44 H, AST 106 H, ALT 26, Alkaline Phosphatase 176 H, Total Protein 6.3 L, Albumin 2.2 L, Globulin 4.1 12/12/18 14:20: Sodium 125 L, Potassium 2.5 L*, Chloride 81 L, Carbon Dioxide 37.0 H, Anion Gap 7, BUN 9, Creatinine 0.62 L, Estim Creat Clear Calc 161.68, Est GFR (MDRD) Af Amer 190, Est GFR (MDRD) Non-Af 157, BUN/Creatinine Ratio 14.6, Glucose 145 H, Calcium 7.5 L 12/12/18 19:30: Sodium 128 L, Potassium 2.6 L*, Chloride 84 L, Carbon Dioxide 38.0 H, Anion Gap 6, BUN 7, Creatinine 0.56 L, Estim Creat Clear Calc 179.01, Est GFR (MDRD) Af Amer 214, Est GFR (MDRD) Non-Af 176, BUN/Creatinine Ratio 12.6, Glucose 129 H, Calcium 7.6 L 12/12/18 19:30: Sodium 132 L, Potassium 2.7 L*, Chloride 87 L, Carbon Dioxide 38.0 H, BUN 8, Creatinine 0.56 L, Estim Creat Clear Calc 179.01, Est GFR (MDRD) Af Amer 210, Est GFR (MDRD) Non-Af 173, BUN/Creatinine Ratio 14.2, Glucose 129 H , Calcium 7.5 L, Phosphorus 3.7, Albumin 2.0 L 12/13/18 04:40: WBC 7.5, RBC 2.55 L, Hgb 8.5 L, Hct 24.5 L, MCV 96.1 H, MCH 33.3 H, MCHC 34.7, RDW 16.1 H, RDW Differential 52.8 H, Plt Count 181, MPV 9.7 12/13/18 04:40: Sodium 134 L, Potassium 3.1 L, Chloride 88 L, Carbon Dioxide 38.0 H, Anion Gap 8, BUN 7, Creatinine 0.48 L, Estim Creat Clear Calc 208.84, Est GFR (MDRD) Af Amer 251, Est GFR (MDRD) Non-Af 207, BUN/Creatinine Ratio 14.5, Glucose 109 H, Calcium 8.2 L, Phosphorus 4.3, Magnesium 1.9 12/13/18 04:40: Iron 93, TIBC 210 L, Iron Saturation 44.3, Ferritin 689 H 12/12/18 00:15: Urine Color Yellow, Urine Clarity Sl. Cloudy, Urine pH 7.0, Ur Specific [place] 1.005, Urine Protein 30 H, Urine Glucose (UA) Normal, Urine Ketones Negative, Urine Occult Blood 10 H, Urine Nitrite Negative, Urine Bilirubin 1 H, Urine Urobilinogen 4 H, Ur Leukocyte Esterase 25 H, Urine RBC 0-5 SEEN, Urine WBC 0-5 SEEN, Ur Squamous Epith Cells 0-5 SEEN, Amorphous Sediment 1+, Urine Bacteria 0 SEEN, Urine Mucus 0 SEEN 12/12/18 00:15: Urine Opiates Screen NEGATIVE, Urine Methadone Screen NEGATIVE, Ur Barbiturates Screen NEGATIVE, Ur Phencyclidine Scrn NEGATIVE, Ur Amphetamines Screen NEGATIVE, U Methamphetamin-MDMA NEGATIVE, U Benzodiazepines Scrn NEGATIVE, Urine Cocaine Screen NEGATIVE, U Cannabinoids Screen NEGATIVE, Ur Drug Screen Comment 12/12/18 02:45: Magnesium 1.7 12/12/18 02:45: Hemoglobin A1c 5.5 12/12/18 02:45: Troponin I < 0.015 12/12/18 02:45: Ur Random Sodium 12, Urine Creatinine 25.30, Urine Potassium 1.0, Urine Chloride 11 Code Visit Inpatient E&M: 34280 Subs Hosp L3
[2018-12-13 07:42] LABS: Ferritin 689 ng/mL (26-388); Iron 93 ug/dL (65-175); Iron Binding Capacity,Total 210 ug/dL (250-450); PERCENT IRON SATURATION 44.3 % (15.0-55.0)
[2018-12-13] MEDS: Folic Acid 1 MG Tablet PO (08:53)
[2018-12-13] MEDS: Thiamine Hydrochloride 100 MG Tablet PO (08:53)
[2018-12-13] MEDS: Senna/Docusate Sodium 1 Tablet PO ×2 (08:54→23:15)
[2018-12-13] MEDS: Enoxaparin 40 MG/0.4 ML Syringe SC (08:54)
[2018-12-13] MEDS: Pantoprazole Sodium 40 MG Tablet PO (08:57)
[2018-12-13] MEDS: chlordiazePOXIDE 25 MG Capsule PO ×3 (09:37→23:15)
--- NOTE | 2018-12-13 09:37 | CASEMGMT ---
Addendum entered by Mell Maki 12/13/18 10:26: SW called [employer], pt has not had Active Medicaid since March of 2018, did not provide income information at that time. Pt can call the 800 number to work on getting Medicaid re-activated. Pt is asleep again, will check back w/pt when awake to give him the number and resources. JEWEL Simpson Original Note: Social Work Note Date and Time of Referral: 12/13/18, 8am Referred By: Self referral Date and Time of Intervention: 12/13/18, 9:40am Informant: Pt, no family present\\ PCP: Dr. Garza Specialists: Dr. Donnelly, Dr. Pelayo Pharmacy: [facility], no preferred pharmacy at present Personal Status Living arrangements: Lives alone in apartment Education/Literacy: Pt can read and write Employment: Unemployed Insurance: Medicaid lapsed, pt does not know why, was unaware of this Family Dynamics/Relationships/Support systems: Pt reports parents as support, states has no other family who is supportive Living Will/POA: None Medical history and functioning Reason for admission and relevant medical history: hypokalemia,hyponatremia, hypocholera, metabolic alkalosis, pt reporting very weak, not eating well, difficulty walking. ADLS prior to admission/DME used: Pt reports prior to this last month pt was independent w/ADL's, pt has no DME and has never used any DME Programs/Agencies involved: Pt denies any agency involvement Substance abuse history: Pt admits to alcohol use, and tobacco use. Pt denies use of any other substance. Pt does not elaborate on alcohol use History of treatment: Pt denies ever having been in any type of treatment or needing any type of treatment Mental Health history: Pt denies any history of any mental health diagnoses, and denies having ever been in treatment Current Cognitive/Mental status: Pt is alert and oriented but very sleepy, fell asleep multiple times during conversation. Flat affect. Pt's identified concerns: Pt at this time is not identifying any concerns however again, pt quite sleepy at present. SW did make pt aware that his insurance is not active. Pt seems agreeable to call the 800 number to see if he can get his insurance re-activated, though at present seems too sleepy to actually make the call. Interventions: SW explained will give pt resources when more awake for self pay status, and will give pt the Medicaid application and the 800 number to call when he is able to make the phone call. SW will also call [employer] to see if SW can learn why pt's Medicaid is not active. SW also will assist should any other discharge needs be identified, such as if pt needs rehab in SNF at discharge. PT/OT pending. JEWEL Simpson
--- NOTE | 2018-12-13 13:48 | CASEMGMT ---
Social Work Note Mell HOLLOWAY provided financial resources and medicaid number for pt to call. Pt stated that he will be calling Medicaid number to get his medicaid reactivated. Nyla Ashton COMMODITIES TRADER, TIME CHECKER
--- NOTE | 2018-12-13 17:28 | NURSING ---
This RN walked into patient's room at 1655 to find patient sitting up on floor. Pt stated he went to reach for something and slid out of the chair. The EMERGENCY PREPAREDNESS COORDINATOR last saw the patient in his chair around 1645. Vitals signs stable. patient states he did not hit his head. candy roller notified and at bedside. Dr. Mary notified. Patient assisted back to bed with 2 assist. Bed alarm on.
[2018-12-13 20:26] LABS: Anion Gap 5 (5-15); BUN 5 mg/dL (7-18); BUN/Creat Ratio 8.6 RATIO (10-20); Calcium,Total 8.6 mg/dL (8.5-10.1); Chloride 93 mmol/L (98-107); Creatinine, Serum 0.58 mg/dL (0.70-1.30); EST Glomerular Filtration Rate 168 mL/min (>60); Est Glom Filt Rate - Afr Amer 204 mL/min (>60); Estimated Creatinine Clearance 176.07 ml/min; Glucose 123 mg/dL (74-106); Potassium 3.9 mmol/L (3.5-5.1); Sodium Level 131 mmol/L (136-145)
[2018-12-13] MEDS: Acetaminophen 325 MG Tablet 650 MG PO (23:15)
[2018-12-14 03:28] VITALS: BP 93/69; PULSE 100; RESP 16; TEMP 36.3; O2SAT 93
[2018-12-14 05:29] VITALS: BP 107/73; PULSE 96; RESP 16; TEMP 36.1; O2SAT 93
--- NOTE | 2018-12-14 06:39 | PN_ITS ---
Patient Problems: Active and Suspected Problems (Last Updated 12/12/18 @ 02:18 by Phil Granados MD) Hypokalemia (Acute) Hyponatremia (Acute) Hypochloremia (Acute) Metabolic alkalosis (Acute) Subjective: The patient was seen and examined at the bedside this morning. Events from the last 24 hours have been reviewed. The patient is currently afebrile, hemodynamically stable and maintaining appropriate oxygen saturations on room air. Last evening, the patient reportedly fell from his chair to the floor, but did not sustain any significant injury. Metabolic and electrolyte derangements continue to improve. Objective: The patient's most recent lab work, culture data and imaging studies have all been personally reviewed. - Physical Exam General: Alert, Cooperative, No apparent distress HEENT: Atraumatic, PERRLA, Normocephalic Oral: No Gingival or Mucosal Lesions/ Ulcerations Neck: Supple, No Nodes, Trachea Midline Lungs: No rhonchi, No wheeze, No rales, Diminished Cardiovascular: Regular rate, Regular Rhythm, Normal S1, Normal S2, No murmurs Abdomen: Bowel Sounds Present, Soft, Non Tender Extremities: No clubbing, No cyanosis, No edema Skin: - - No significant change from previous Musculoskeletal: No Muscle Wasting Lymphatic: No Cervical, Supraclavicular, or Inguinal Adenopathy Neurological: - - Residual lower externally weakness Psych/Mental Status: Alert and oriented to time, place, person, mood and affect Vital Signs Temp Pulse Resp BP Pulse Ox 97 F L 96 16 107/73 93 12/14/18 05:29 12/14/18 05:29 12/14/18 05:29 12/14/18 05:29 12/14/18 05:29 Oxygen Delivery Method Room Air Weight: 158 lb 1.143 oz Body Mass Index (BMI) 22.6 Intake and Output for Last 24 Hours 12/12/18 12/13/18 12/14/18 23:59 23:59 23:59 Intake Total 2257 / 3812 2035 / 2335 300 / 300 Output Total 1925 / 2275 1425 / 1725 300 / 300 Balance 332 / 1537 610 / 610 0 / 0 Laboratory Tests Past 24 Hrs 12/13/18 12/13/18 04:40 20:00 Sodium 131 L Potassium 3.9 Chloride 93 L Carbon Dioxide 33.0 H Anion Gap 5 BUN 5 L Creatinine 0.58 L Estim Creat Clear Calc 176.07 Est GFR (MDRD) Af Amer 204 Est GFR (MDRD) Non-Af 168 BUN/Creatinine Ratio 8.6 L Glucose 123 H Calcium 8.6 Iron 93 TIBC 210 L Iron Saturation 44.3 Ferritin 689 H Labs (Last 48 Hours) 12/12/18 12/12/18 12/12/18 06:00 06:00 14:20 WBC RBC Hgb Hct MCV MCH MCHC RDW RDW Differential Plt Count MPV Sodium 125 L 125 L Potassium 2.1 L* 2.5 L* Chloride 76 L 81 L Carbon Dioxide 37.0 H 37.0 H Anion Gap 12 7 BUN 9 9 Creatinine 0.69 L 0.62 L Estim Creat Clear Calc 145.28 161.68 Est GFR (MDRD) Af Amer 166 190 Est GFR (MDRD) Non-Af 137 157 BUN/Creatinine Ratio 13.0 14.6 Glucose 143 H 145 H Calcium 7.7 L 7.5 L Phosphorus Magnesium Iron TIBC Iron Saturation Ferritin Total Bilirubin 1.10 H Direct Bilirubin 0.44 H AST 106 H ALT 26 Alkaline Phosphatase 176 H Troponin I < 0.015 Total Protein 6.3 L Albumin 2.2 L Globulin 4.1 12/12/18 12/12/18 12/13/18 19:30 19:30 04:40 WBC 7.5 RBC 2.55 L Hgb 8.5 L Hct 24.5 L MCV 96.1 H MCH 33.3 H MCHC 34.7 RDW 16.1 H RDW Differential 52.8 H Plt Count 181 MPV 9.7 Sodium 128 L 132 L Potassium 2.6 L* 2.7 L* Chloride 84 L 87 L Carbon Dioxide 38.0 H 38.0 H Anion Gap 6 BUN 7 8 Creatinine 0.56 L 0.56 L Estim Creat Clear Calc 179.01 179.01 Est GFR (MDRD) Af Amer 214 210 Est GFR (MDRD) Non-Af 176 173 BUN/Creatinine Ratio 12.6 14.2 Glucose 129 H 129 H Calcium 7.6 L 7.5 L Phosphorus 3.7 Magnesium Iron TIBC Iron Saturation Ferritin Total Bilirubin Direct Bilirubin AST ALT Alkaline Phosphatase Troponin I Total Protein Albumin 2.0 L Globulin 12/13/18 12/13/18 12/13/18 04:40 04:40 20:00 WBC RBC Hgb Hct MCV MCH MCHC RDW RDW Differential Plt Count MPV Sodium 134 L 131 L Potassium 3.1 L 3.9 Chloride 88 L 93 L Carbon Dioxide 38.0 H 33.0 H Anion Gap 8 5 BUN 7 5 L Creatinine 0.48 L 0.58 L Estim Creat Clear Calc 208.84 176.07 Est GFR (MDRD) Af Amer 251 204 Est GFR (MDRD) Non-Af 207 168 BUN/Creatinine Ratio 14.5 8.6 L Glucose 109 H 123 H Calcium 8.2 L 8.6 Phosphorus 4.3 Magnesium 1.9 Iron 93 TIBC 210 L Iron Saturation 44.3 Ferritin 689 H Total Bilirubin Direct Bilirubin AST ALT Alkaline Phosphatase Troponin I Total Protein Albumin Globulin Clinical Impression(s) from Imaging Studies Chest X-Ray 12/12/18 00:00 IMPRESSION: Pulmonary hypoexpansion and pulmonary edema. at 0054 Reported and signed by: Farhan Simpson MD Electronically Signed: Farhan Simpson MD at 0:53 EDT Tel , Service support , Brain CT 12/12/18 00:01 IMPRESSION: Trace brain atrophy. This is unusual for a patient of stated age 38 years. Differential diagnosis includes chronic illness, chronic alcohol abuse, chronic drug use, malnutrition, HIV, amongst other potential etiologies. ASPECT 10. Individualized dose optimization techniques were used for this CT. at 0037 Reported and signed by: Farhan Simpson MD Electronically Signed: Farhan Simpson MD at 0:36 EDT Tel , Service support , Medical Necessity - Tobacco Use Smoking Status: Light Smoker (<10/day) Tobacco Use: Cigarettes Assessment/Plan All Active Problems (Last Updated 12/12/18 @ 02:18 by Phil Granados MD) Hypokalemia (Acute) Hyponatremia (Acute) Hypochloremia (Acute) Metabolic alkalosis (Acute) RECOMMENDATIONS: 1. IV fluids per nephrology recommendations. 2. Continue aggressive electrolyte repletion. 3. Continue Librium, thiamine and folate. 4. Continue nicotine replacement therapy. IMPRESSIONS: 1. Hypokalemia with associated lower extremity paresis The exact etiology for the patient's hypokalemia is a bit unclear. It is unknown whether his metabolic alkalosis is contributing to his current state of potassium imbalance. His bicarbonate level was previously noted to be within normal limits in 2018. The patient's alkalosis may also be secondary to contraction as well. Regardless, at this time, the patient will be treated with supplemental IV fluids and aggressive electrolyte repletion to correct his m etabolic derangements. Nephrology is following to assist in the management of this patient. 2. Hypovolemic hyponatremia Conservative use of normal saline supplemental IV fluids to prevent rapid overcorrection of the patient's serum sodium level. Continue frequent chemistry monitoring. 3. Chronic alcohol and tobacco dependency The patient has a long-standing history of daily alcohol use and does report a history of prior withdrawal. He will be monitored accordingly and maintained on a Librium taper. Continue thiamine and folate repletion. Continue nicotine replacement therapy. 4. Anemia The patient's anemia appears to be relatively new, as he was previously noted to have a hemoglobin level in the 15 to 16 g/dL range in 2018. Continue daily PPI therapy. This note was generated with [employer] dictation software. It may contain incorrect words, spelling, and punctuation that were not noted in checking the note before signing. DISPOSITION: Given the patient's lack of further ICU/pulmonary needs, will sign off. Please call with any additional questions. Code Visit Inpatient E&M: 51820 Subs Hosp L2
[2018-12-14 07:28] LABS: Anion Gap 8 (5-15); BUN 6 mg/dL (7-18); BUN/Creat Ratio 10.9 RATIO (10-20); Calcium,Total 8.8 mg/dL (8.5-10.1); Chloride 94 mmol/L (98-107); Creatinine, Serum 0.55 mg/dL (0.70-1.30); EST Glomerular Filtration Rate 178 mL/min (>60); Est Glom Filt Rate - Afr Amer 216 mL/min (>60); Estimated Creatinine Clearance 185.68 ml/min; Glucose 88 mg/dL (74-106); Potassium 3.8 mmol/L (3.5-5.1); Sodium Level 135 mmol/L (136-145)
[2018-12-14 07:29] VITALS: O2SAT 96
[2018-12-14] MEDS: Thiamine Hydrochloride 100 MG Tablet PO (08:43)
[2018-12-14] MEDS: chlordiazePOXIDE 25 MG Capsule PO ×2 (08:43→20:59)
[2018-12-14] MEDS: Folic Acid 1 MG Tablet PO (08:44)
[2018-12-14 09:25] VITALS: BP 107/72; PULSE 102; RESP 16; RESP 18; TEMP 36.1; O2SAT 94
--- NOTE | 2018-12-14 09:41 | RAD_ITS ---
STUDY: X-RAY - LEFT WRIST REASON FOR EXAM: Male, 38 years old. Left wrist and arm pain TECHNIQUE: 3 view(s) of the wrist were obtained. COMPARISON: 02/18/2017 FINDINGS: Normal visualized distal radius and ulna. Normal radiocarpal articulation. Normal distal radioulnar articulation. Similar subacute unhealed fracture of the scaphoid with transverse lucency through the scaphoid body. Normal carpal articulations. Normal carpometacarpal articulation of the thumb. Normal second through fifth carpometacarpal articulations. Normal visualized metacarpal bones. The soft tissue structures are unremarkable. RAD/Wrist min 3 Views IMPRESSION: No acute fracture. Nonunion scaphoid fracture (since 2016). Electronically Signed: Rigo Lamas MD at 15:08 EDT , Service support ,
[2018-12-14] MEDS: Enoxaparin 40 MG/0.4 ML Syringe SC (10:52)
[2018-12-14] MEDS: Senna/Docusate Sodium 1 Tablet PO ×2 (10:52→21:31)
[2018-12-14] MEDS: Pantoprazole Sodium 40 MG Tablet PO (10:53)
--- NOTE | 2018-12-14 12:30 | RAD_ITS ---
STUDY: X-RAY - LEFT RADIUS AND ULNA REASON FOR EXAM: Male, 38 years old. Left forearm pain after falling last night TECHNIQUE: 2 view(s) of the forearm. COMPARISON: None. FINDINGS: There is no demonstrated soft tissue swelling. Normal visualized radius. Normal visualized ulna. RAD/Forearm 2 Views IMPRESSION: No fracture or malalignment. Electronically Signed: Rigo Lamas MD at 15:12 EDT , Service support ,
--- NOTE | 2018-12-14 14:15 | PCM.PN.HOSP ---
Patient Problems: Active and Suspected Problems (Last Updated 12/12/18 @ 02:18 by Phil Granados MD) Hypokalemia (Acute) Hyponatremia (Acute) Hypochloremia (Acute) Metabolic alkalosis (Acute) Subjective: Patient is slow and lethargic. Patient still has both legs weakness. Discussed with Dr. Burroughs. 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 No significant injury. Vitals/I&O's: Vital Signs Temp Pulse Resp BP Pulse Ox 97.0 F L 102 H 18 107/72 94 12/14/18 09:25 12/14/18 09:25 12/14/18 09:25 12/14/18 09:25 12/14/18 09:25 Oxygen Delivery Method Room Air Weight: 158 lb 1.143 oz Body Mass Index (BMI) 22.6 Intake and Output for Last 24 Hours 12/12/18 12/13/18 12/14/18 23:59 23:59 23:59 Intake Total 2257 / 3812 2035 / 2335 950 / 950 Output Total 1925 / 2275 1425 / 1725 300 / 300 Balance 332 / 1537 610 / 610 650 / 650 General: Oriented x3, Cooperative, Lethargic HEENT: Atraumatic, PERRLA, EOMI, Normocephalic Oral: Moist Mucosa Neck: Supple, No JVD, Negative Carotid Bruits Lungs: Clear to auscultation, No rhonchi, No wheeze, No rales, Diminished Cardiovascular: Regular rate, Regular Rhythm, Normal S2, No murmurs Abdomen: Bowel Sounds Present, Soft, Non Tender Extremities: No edema, Capillary Refill Less than 3 Seconds Skin: No rashes, No breakdown Musculoskeletal: No Tenderness to Palpation of Joints or Extremities Neurological: Cranial nerves II-XII grossly intact, Deep Tendon Reflexes 2+/4 and Symmetrical, Neuro grossly intact, - - Bilateral lower leg weakness, power 3/5. Deep tendon reflexes are 1-2/4. Denies loss of perineal sensation. Lower motor neuron palsy. Psych/Mental Status: Normal Affect, Appropriate Laboratory Results 12/13/18 20:00: Sodium 131 L, Potassium 3.9, Chloride 93 L, Carbon Dioxide 33.0 H, Anion Gap 5, BUN 5 L, Creatinine 0.58 L, Estim Creat Clear Calc 176.07, Est GFR (MDRD) Af Amer 204, Est GFR (MDRD) Non-Af 168, BUN/Creatinine Ratio 8.6 L, Glucose 123 H, Calcium 8.6 12/14/18 06:40: Sodium 135 L, Potassium 3.8, Chloride 94 L, Carbon Dioxide 33.0 H, Anion Gap 8, BUN 6 L, Creatinine 0.55 L, Estim Creat Clear Calc 185.68, Est GFR (MDRD) Af Amer 216, Est GFR (MDRD) Non-Af 178, BUN/Creatinine Ratio 10.9, Glucose 88, Calcium 8.8 Current Medications Acetaminophen (Tylenol) 650 mg PO Q6H PRN PRN PRN Reason: Mild Pain (1-3)/Temp > 100.7 F Last Admin: 12/13/18 23:15 Dose: 650 mg Documented by: Chlordiazepoxide (Librium) 25 mg PO Q12H [facility]; Taper Stop: 12/15/18 07:59 Last Admin: 12/14/18 08:43 Dose: 25 mg Documented by: Dextrose (D50w Syringe) 0 gm IV X1 PRN; Protocol PRN Reason: Hypoglycemia Enoxaparin Sodium (Lovenox) 40 mg SC DAILY@1000 JOSE Last Admin: 12/14/18 10:52 Dose: 40 mg Documented by: Glucagon () 1 mg IM .X1 PRN PRN Reason: Hypoglycemia Sodium Chloride () 250 mls @ 15 mls/hr IV .[id number] PRN PRN Reason: SALINE FLUSH Lorazepam (Ativan) 2 mg IV X1 PRN PRN Reason: Seizure Nicotine (Nicoderm Cq (Pbkc)) 14 mg TRANSDERM. DAILY [facility] Last Admin: 12/14/18 10:52 Dose: 14 mg Documented by: Nutritional Formula (Lactose Free) (Ensure Enlive) 120 ml PO 4X/DAY [facility] Last Admin: 12/14/18 10:52 Dose: 120 ml Documented by: Ondansetron HCl (Zofran) 4 mg IV Q8H PRN PRN PRN Reason: NAUSEA/VOMITING Pantoprazole Sodium (Protonix) 40 mg PO DAILY [facility] Last Admin: 12/14/18 10:53 Dose: 40 mg Documented by: Senna/Docusate Sodium (Senokot-S, Natacha-Colace) 1 tablet PO BID [facility] Last Admin: 12/14/18 10:52 Dose: 1 tablet Documented by: Sodium Chloride () 10 - 40 ml IV UD PRN PRN Reason: SALINE FLUSH Medical Necessity - Tobacco Use Smoking Status: Light Smoker (<10/day) Tobacco Use: Cigarettes Assessment/Plan All Active Problems (Last Updated 12/12/18 @ 02:18 by Phil Granados MD) Hypokalemia (Acute) Hyponatremia (Acute) Hypochloremia (Acute) Metabolic alkalosis (Acute) The patient is a 38 year old M with a significant history of chronic alcohol use and dependence, reportedly quit about a month ago is being admitted to ICU through emergency room for progressive worsening of bilateral lower extremities weakness with inability to walk or stand and some weakness in arms. The patient was found severe hypokalemia, hyponatremia and metabolic alkalosis, bicarb 34, anion gap 13. 1. Bilateral lower extremity weakness/paresis secondary to severe hypokalemia and hyponatremia: Patient denies nausea vomiting but had mild diarrhea as per the ER physician. Denies abdominal pain. Potassium, phosphorus and and sodium monitoring in place. On IV KCl replacement protocol and oral K-dur. Patient was transferred to regular floor on 5018. Lower extremity weakness did not improve with electrolyte replacement. Discussed with neurologist, Dr. Burroughs. With mild brain atrophy and CT scan, he advised MRI brain, MRI C-spine, thoracic spine and lumbar spine for lower extremity weakness and were ordered. EMG of lower extremities also ordered.. We do not have neurology coverage on weekend therefore neurology consult on Sunday. 2. Severe electrolyte abnormality with severe hypokalemia, hyponatremia, hypochloremia with metabolic alkalosis, most likely from contraction alkalosis although patient denies severe loss of fluid.: Last K was 3.8, bicarb 33 improved from 38, sodium 135. 3. Abnormal EKG: EKG reviewed and shows sinus tachycardia at 110 bpm with slight prolonged QTC, 498 ms. QT interval is 368 ms. P wave is prominent. Nonspecific ST-T abnormality with T inversion in V1 to V5 possible hypokalemic EKG changes. QT is 320 ms. 4. History of chronic alcohol use and dependency with recent quit as per patient: Alcohol level less than 3.0. LFT shows ALT 26, AST 106, alk phos 176, total bili 1.1. Albumin is very low 2.2, globulin 4.1 suggestive of inverse A/G ratio secondary to alcohol-related liver disease/chronic alcoholic hepatitis. Mild neutrophilic leukocytosis possible reactive. 5. Normocytic normochromic anemia: H&H 9.2/26. MCV 93. Patient has decreased to 8.5/24.5. Likely from alcoholism. Anemia work-up shows anemia secondary to chronic disease. TIBC is low, ferritin high significant 9. Other chronic comorbidities include chronic tobacco use/nicotine dependence, recent left wrist fracture: Patient follows [facility] orthopedics surgeon. Has Matt wrap bandage. DVT prophylaxis High risk because of inability to move Subcutaneous Lovenox ordered. Laboratory Results 12/14/18 06:40: Sodium 135 L, Potassium 3.8, Chloride 94 L, Carbon Dioxide 33.0 H, Anion Gap 8, BUN 6 L, Creatinine 0.55 L, Estim Creat Clear Calc 185.68, Est GFR (MDRD) Af Amer 216, Est GFR (MDRD) Non-Af 178, BUN/Creatinine Ratio 10.9, Glucose 88, Calcium 8.8 12/12/18 02:45: Magnesium 1.7 12/12/18 02:45: Hemoglobin A1c 5.5 12/12/18 02:45: Troponin I < 0.015 12/12/18 02:45: Ur Random Sodium 12, Urine Creatinine 25.30, Urine Potassium 1.0, Urine Chloride 11 Code Visit Inpatient E&M: 70142 Subs Hosp L3
[2018-12-14 17:20] VITALS: BP 115/83; PULSE 75; RESP 16; TEMP 36.3; O2SAT 98
--- NOTE | 2018-12-14 18:15 | PCM.PN.REN ---
Patient Problems: Active and Suspected Problems (Last Updated 12/12/18 @ 02:18 by Phil Granados MD) Hypokalemia (Acute) Hyponatremia (Acute) Hypochloremia (Acute) Metabolic alkalosis (Acute) Subjective: Pt has no nausea/vomiting. No SOB Still feel weakness - Physical Exam General: Alert, Oriented x3 HEENT: Atraumatic Oral: Moist Mucosa Neck: Supple, No JVD Lungs: Clear to auscultation, Normal air movement, No rhonchi, No wheeze Cardiovascular: Regular rate Abdomen: Bowel Sounds Present, Soft, Non Tender Extremities: No clubbing, No cyanosis, Edema - trace Skin: No rashes Musculoskeletal: No Tenderness to Palpation of Joints or Extremities Lymphatic: No Cervical, Supraclavicular, or Inguinal Adenopathy Neurological: Cranial nerves II-XII grossly intact Psych/Mental Status: Appropriate Vital Signs Temp Pulse Resp BP Pulse Ox 97.3 F L 75 16 115/83 H 98 12/14/18 17:20 12/14/18 17:20 12/14/18 17:20 12/14/18 17:20 12/14/18 17:20 Oxygen Delivery Method Room Air Weight: 71.7 kg Body Mass Index (BMI) 22.6 Intake and Output for Last 24 Hours 12/12/18 12/13/18 12/14/18 23:59 23:59 23:59 Intake Total 2257 / 3812 2035 / 2335 1700 / 1700 Output Total 1925 / 2275 1425 / 1725 300 / 300 Balance 332 / 1537 610 / 610 1400 / 1400 Laboratory Tests Past 24 Hrs 12/13/18 12/14/18 20:00 06:40 Sodium 131 L 135 L Potassium 3.9 3.8 Chloride 93 L 94 L Carbon Dioxide 33.0 H 33.0 H Anion Gap 5 8 BUN 5 L 6 L Creatinine 0.58 L 0.55 L Estim Creat Clear Calc 176.07 185.68 Est GFR (MDRD) Af Amer 204 216 Est GFR (MDRD) Non-Af 168 178 BUN/Creatinine Ratio 8.6 L 10.9 Glucose 123 H 88 Calcium 8.6 8.8 Medical Necessity - Tobacco Use Smoking Status: Light Smoker (<10/day) Tobacco Use: Cigarettes Assessment/Plan All Active Problems (Last Updated 12/12/18 @ 02:18 by Phil Granados MD) Hypokalemia (Acute) Hyponatremia (Acute) Hypochloremia (Acute) Metabolic alkalosis (Acute) 1-severe hypokalemia . resolved with replacement Initially presenting potassium level was 1.7. k today 3.9 2-hyponatremia with hypovolemia. Initial presenting level of sodium was 120. Na level normalized Na today 135 Continue to monitor sodium level. 3-metabolic alkalosis. Most probably related to volume contraction. Improved . HCO3 33. Renal team will continue to follow. Please call if any question at [phone]
[2018-12-14 20:00] VITALS: BP 117/81; PULSE 104; RESP 16; TEMP 36.4; O2SAT 99
[2018-12-15 02:25] VITALS: BP 113/85; PULSE 105; PULSE 106; RESP 16; TEMP 36.6; O2SAT 95
[2018-12-15 07:14] LABS: Absolute Lymphocyte Count 1.96 X10^3/ul (0.83-4.51); Absolute Neutrophil Count 6.2 X10^3/uL (2.0-7.7); Basophil# 0.02 X10^3/uL; Basophil% 0.2 % (0-1); Eosinophil# 0.02 X10^3/uL; Eosinophils% 0.2 % (0-5); Hematocrit 26.7 % (40-54); Hemoglobin 8.8 g/dl (13.0-16.5); Lymphocyte # 1.96 X10^3/ul (4.0); Lymphocyte % 21.6 % (19-41); Mean Corpuscular Hgb 31.9 pg (27.0-32.0); Mean Corpuscular Volume 96.7 fL (80-94); Mean Platelet Vol. 10.3 fl (6.2-12.0); Monocyte# 0.79 X10^3/uL; Monocyte% 8.7 % (0-10); Neutrophil % 68.2 % (47-70); Platelet Count 177 K/mm3 (150-450); RBC Distribution Width CV 16.5 % (11.6-14.6); RBC Distribution Width SD 54.7 fl (35.1-43.9); Red Blood Count 2.76 M/mm3 (4.6-6.2); White Blood Count 9.1 K/mm3 (4.4-11.0)
[2018-12-15 07:18] LABS: POSITIVE COUNT NO; POSITIVE DIFFERENTIAL NO; POSITIVE MORPHOLOGY NO
--- NOTE | 2018-12-15 07:40 | CPS ---
No staff to do EMG/NCS, this is staffed only M-F.
[2018-12-15] MEDS: Senna/Docusate Sodium 1 Tablet PO ×2 (09:01→22:57)
[2018-12-15] MEDS: Pantoprazole Sodium 40 MG Tablet PO (09:01)
[2018-12-15] MEDS: Enoxaparin 40 MG/0.4 ML Syringe SC (09:01)
[2018-12-15 09:30] VITALS: BP 119/88; PULSE 117; RESP 18; TEMP 36.8; O2SAT 99
--- NOTE | 2018-12-15 10:00 | MRI_ITS ---
STUDY: MRI BRAIN WITHOUT CONTRAST REASON FOR EXAM: Male, 38 years old. Electrolyte imbalance. Extremity weakness. Alcoholism. TECHNIQUE: Standardized multiplanar fat and water weighted pulse sequences were obtained. COMPARISON: MRI brain without contrast 11/17/2014. CT head without contrast 12/12/2018. FINDINGS: No restricted diffusion to suspect acute or subacute ischemic infarct. No focal signal abnormalities throughout the brain parenchyma. Normal size of the ventricles and extra-axial spaces for the patient's age. Normal white matter tracts of the supratentorial brain. Normal bilateral basal ganglia. Normal thalami. There is no extra-axial fluid accumulation. Normal flow voids within the major intracranial circulation suggesting patency by spin echo criteria. Normal sella turcica, pituitary gland, infundibular stalk, optic chiasm and hypothalamus. Normal tectal plate and pineal gland. Normal midbrain, marshal and medulla. Normal cerebellum. Normal basal cisterns. Normal bilateral temporal bones. Normal bilateral internal auditory canals. No demonstrated orbital abnormality, within the constraints of a routine brain study. Normal visualized paranasal sinuses. Normal calvarium and skull base. Normal visualized soft tissue structures. Normal visualized upper cervical spine. MRI/Brain without Contrast IMPRESSION: Normal unenhanced MRI of the brain and without significant change when compared to 11/17/2014. Electronically Signed: Jevon Ramos MD at 14:50 EDT , Service support ,
--- NOTE | 2018-12-15 10:32 | PCM.PN.HOSP ---
Patient Problems: Active and Suspected Problems (Last Updated 12/12/18 @ 02:18 by Phil Granados MD) Hypokalemia (Acute) Hyponatremia (Acute) Hypochloremia (Acute) Metabolic alkalosis (Acute) Subjective: Overall patient looks better. Slight improvement in muscle weakness. Potassium is corrected. Vitals/I&O's: Vital Signs Temp Pulse Resp BP Pulse Ox 97.9 F 106 H 16 113/85 H 95 12/15/18 02:25 12/15/18 02:25 12/15/18 02:25 12/15/18 02:25 12/15/18 02:25 Oxygen Delivery Method Room Air Weight: 158 lb 1.143 oz Body Mass Index (BMI) 22.6 Intake and Output for Last 24 Hours 12/13/18 12/14/18 12/15/18 23:59 23:59 23:59 Intake Total 2035 / 2335 1950 / 1950 300 / 300 Output Total 1425 / 1725 300 / 300 Balance 610 / 610 1650 / 1650 300 / 300 General: Alert, Oriented x3, Cooperative, Lethargic HEENT: Atraumatic, PERRLA, EOMI, Normocephalic Oral: Moist Mucosa Neck: Supple, No JVD, Negative Carotid Bruits Lungs: Clear to auscultation, Normal air movement, No rhonchi, No wheeze, No rales Cardiovascular: Regular rate, Normal S1, Normal S2, No murmurs Abdomen: Bowel Sounds Present, Soft, Non Tender, Non-Distended Extremities: No edema, Capillary Refill Less than 3 Seconds Skin: No rashes, No breakdown Musculoskeletal: No Tenderness to Palpation of Joints or Extremities, Muscle Wasting Neurological: Cranial nerves II-XII grossly intact, - - Motor strength 4/5 at major joints of lower extremities. Plantar reflex downgoing. Patient has sensation in both legs although is inconsistent in his responses. Perineal sensation present. Overall seems lower motor neuron palsy. Psych/Mental Status: Normal Affect, Appropriate Laboratory Results 12/15/18 06:26: WBC 9.1, RBC 2.76 L, Hgb 8.8 L, Hct 26.7 L, MCV 96.7 H, MCH 31.9, MCHC 33.0, RDW 16.5 H, RDW Differential 54.7 H, Plt Count 177, MPV 10.3, Immature Gran % (Auto) 1.100 H, Neut % (Auto) 68.2, Lymph % (Auto) 21.6, [place] % (Auto) 8.7, Eos % (Auto) 0.2, Baso % (Auto) 0.2, Absolute Neuts (auto) 6.2, Absolute Lymphs (auto) 1.96, Total Counted Not Reportable Current Medications Acetaminophen (Tylenol) 650 mg PO Q6H PRN PRN PRN Reason: Mild Pain (1-3)/Temp > 100.7 F Last Admin: 12/13/18 23:15 Dose: 650 mg Documented by: Dextrose (D50w Syringe) 0 gm IV X1 PRN; Protocol PRN Reason: Hypoglycemia Enoxaparin Sodium (Lovenox) 40 mg SC DAILY@1000 JOSE Last Admin: 12/15/18 09:01 Dose: 40 mg Documented by: Glucagon () 1 mg IM .X1 PRN PRN Reason: Hypoglycemia Sodium Chloride () 250 mls @ 15 mls/hr IV .[id number] PRN PRN Reason: SALINE FLUSH Lorazepam (Ativan) 2 mg IV X1 PRN PRN Reason: Seizure Nicotine (Nicoderm Cq (Pbkc)) 14 mg TRANSDERM. DAILY [facility] Last Admin: 12/15/18 09:01 Dose: 14 mg Documented by: Nutritional Formula (Lactose Free) (Ensure Enlive) 120 ml PO 4X/DAY [facility] Last Admin: 12/15/18 09:01 Dose: 120 ml Documented by: Ondansetron HCl (Zofran) 4 mg IV Q8H PRN PRN PRN Reason: NAUSEA/VOMITING Pantoprazole Sodium (Protonix) 40 mg PO DAILY [facility] Last Admin: 12/15/18 09:01 Dose: 40 mg Documented by: Senna/Docusate Sodium (Senokot-S, Natacha-Colace) 1 tablet PO BID [facility] Last Admin: 12/15/18 09:01 Dose: 1 tablet Documented by: Sodium Chloride () 10 - 40 ml IV UD PRN PRN Reason: SALINE FLUSH Medical Necessity - Tobacco Use Smoking Status: Light Smoker (<10/day) Tobacco Use: Cigarettes Assessment/Plan All Active Problems (Last Updated 12/12/18 @ 02:18 by Phil Granados MD) Hypokalemia (Acute) Hyponatremia (Acute) Hypochloremia (Acute) Metabolic alkalosis (Acute) The patient is a 38 year old M with a significant history of chronic alcohol use and dependence, reportedly quit about a month ago is being admitted to ICU through emergency room for progressive worsening of bilateral lower extremities weakness with inability to walk or stand and some weakness in arms. The patient was found severe hypokalemia, hyponatremia and metabolic alkalosis, bicarb 34, anion gap 13. 1. Bilateral lower extremity weakness/paresis secondary to severe hypokalemia and hyponatremia: Patient denies nausea vomiting but had mild diarrhea as per the ER physician. Denies abdominal pain. Potassium, phosphorus and and sodium monitoring in place. On IV KCl replacement protocol and oral K-dur. Patient was transferred to regular floor on [id number]. Lower extremity weakness did not improve with electrolyte replacement. Discussed with neurologist, Dr. Burroughs. With mild brain atrophy and CT scan, he advised MRI brain, MRI C-spine, thoracic spine and lumbar spine for lower extremity weakness and were ordered. EMG of lower extremities also ordered.. We do not have neurology coverage on weekend therefore neurology consult on Sunday. 2. Severe electrolyte abnormality with severe hypokalemia, hyponatremia, hypochloremia with metabolic alkalosis, most likely from contraction alkalosis although patient denies severe loss of fluid.: Last K was 3.8, bicarb 33 improved from 38, sodium 135. Repeat labs today. 3. Abnormal EKG: EKG reviewed and shows sinus tachycardia at 110 bpm with slight prolonged QTC, 498 ms. QT interval is 368 ms. P wave is prominent. Nonspecific ST-T abnormality with T inversion in V1 to V5 possible hypokalemic EKG changes. QT is 320 ms. 4. History of chronic alcohol use and dependency with recent quit as per patient: Alcohol level less than 3.0. LFT shows ALT 26, AST 106, alk phos 176, total bili 1.1. Albumin is very low 2.2, globulin 4.1 suggestive of inverse A/G ratio secondary to alcohol-related liver disease/chronic alcoholic hepatitis. Mild neutrophilic leukocytosis possible reactive. 5. Normocytic normochromic anemia: H&H 9.2/26. MCV 93. Patient has decreased to 8.5/24.5. Likely from alcoholism. Anemia work-up shows anemia secondary to chronic disease. TIBC is low, ferritin high significant 9. Other chronic comorbidities include chronic tobacco use/nicotine dependence, recent left wrist fracture: Patient follows [facility] orthopedics surgeon. Has Matt wrap bandage. DVT prophylaxis High risk because of inability to move Subcutaneous Lovenox ordered. Laboratory Results 12/15/18 06:26: WBC 9.1, RBC 2.76 L, Hgb 8.8 L, Hct 26.7 L, MCV 96.7 H, MCH 31.9, MCHC 33.0, RDW 16.5 H, RDW Differential 54.7 H, Plt Count 177, MPV 10.3, Immature Gran % (Auto) 1.100 H, Neut % (Auto) 68.2, Lymph % (Auto) 21.6, [place] % (Auto) 8.7, Eos % (Auto) 0.2, Baso % (Auto) 0.2, Absolute Neuts (auto) 6.2, Absolute Lymphs (auto) 1.96, Total Counted Not Reportable 12/14/18 06:40: Sodium 135 L, Potassium 3.8, Chloride 94 L, Carbon Dioxide 33.0 H, Anion Gap 8, BUN 6 L, Creatinine 0.55 L, Estim Creat Clear Calc 185.68, Est GFR (MDRD) Af Amer 216, Est GFR (MDRD) Non-Af 178, BUN/Creatinine Ratio 10.9, Glucose 88, Calcium 8.8 12/12/18 02:45: Magnesium 1.7 12/12/18 02:45: Hemoglobin A1c 5.5 12/12/18 02:45: Troponin I < 0.015 12/12/18 02:45: Ur Random Sodium 12, Urine Creatinine 25.30, Urine Potassium 1.0, Urine Chloride 11 Code Visit Inpatient E&M: 79052 Subs Hosp L2
[2018-12-15 10:53] LABS: Anion Gap 5 (5-15); BUN 9 mg/dL (7-18); BUN/Creat Ratio 17.3 RATIO (10-20); Calcium,Total 8.7 mg/dL (8.5-10.1); Chloride 96 mmol/L (98-107); Creatinine, Serum 0.52 mg/dL (0.70-1.30); EST Glomerular Filtration Rate 191 mL/min (>60); Est Glom Filt Rate - Afr Amer 231 mL/min (>60); Estimated Creatinine Clearance 196.39 ml/min; Glucose 99 mg/dL (74-106); Potassium 4.1 mmol/L (3.5-5.1); Sodium Level 132 mmol/L (136-145)
--- NOTE | 2018-12-15 12:11 | MRI_ITS ---
STUDY: MRI CERVICAL SPINE WITHOUT CONTRAST REASON FOR EXAM: Male, 38 years old. Electrolyte imbalance, extremity weakness and alcoholism. TECHNIQUE: Standardized fat and water weighted pulse sequences were obtained in the sagittal and axial planes. COMPARISON: None FINDINGS: Normal foramen magnum and brainstem-cervical cord junction. Normal craniovertebral junction. Normal anterior atlantoaxial articulation. Normal odontoid process. Normal cervical lordosis. Normal vertebral bodies and posterior osseous elements. C2-3: Normal endplates. Normal disc height, signal and morphology. Normal central canal and intervertebral neural foramina. Small round C3 benign vertebral body hemangioma versus round benign focal fatty infiltration. Sagittal STIR sequence will help clarify if desired. C3-4: Normal endplates. Normal disc height, signal and morphology. Normal central canal and intervertebral neural foramina. C4-5: Normal endplates. Normal disc height, signal and morphology. Normal central canal and intervertebral neural foramina. C5-6: Normal endplates. Normal disc height, signal and morphology. Normal central canal and intervertebral neural foramina. C6-7: Normal endplates. Normal disc height, signal and morphology. Normal central canal and intervertebral neural foramina. C7-T1: Normal endplates. Normal disc height, signal and morphology. Normal central canal and intervertebral neural foramina. Normal cervical cord. Normal visualized soft tissue structures. MRI/Spine Cervical (Routine) IMPRESSION: 1. Normal unenhanced MR examination of the cervical spine. 2. Small C3 round benign vertebral body hemangioma versus round benign focal fatty infiltration. Sagittal STIR sequence will help clarify if desired. Electronically Signed: Jevon Ramos MD at 14:51 EDT , Service support ,
--- NOTE | 2018-12-15 12:11 | MRI_ITS ---
STUDY: MRI THORACIC SPINE WITHOUT CONTRAST REASON FOR EXAM: Male, 38 years old. Extremity weakness TECHNIQUE: Standardized fat and water weighted pulse sequences were obtained in the sagittal and axial planes. COMPARISON: None. FINDINGS: Normal kyphosis of the thoracic spine. There is no substantial scoliosis. No evidence for acute fracture or subluxation. There is an interosseous hemangioma within the T12 vertebral body and a smaller one at T7. T1-2, T2-3, T3-4, T4-5, T5-6, T6-7, T7-8, T8-9, T9-10, T10-11, T11-12: Normal endplates. Normal disc hydration, heights and morphology of the corresponding intervertebral discs. Normal central canal and intervertebral neural foramina at the corresponding levels. Normal visualized thoracic cord. Normal conus medullaris that terminates at T12-L1 The soft tissue structures are unremarkable. MRI/Spine Thoracic (Routine) IMPRESSION: Small interosseous hemangiomata within the T7 and T12 vertebral bodies. Otherwise normal unenhanced MRI of the thoracic spine Electronically Signed: Gasper May MD at 15:56 EDT , Service support ,
--- NOTE | 2018-12-15 12:16 | MRI_ITS ---
STUDY: MRI LUMBAR SPINE WITHOUT CONTRAST REASON FOR EXAM: Male, 38 years old. Extremity weakness and alcoholism TECHNIQUE: Standardized fat and water weighted pulse sequences were obtained in the sagittal and axial planes. COMPARISON: None FINDINGS: T12-L1: Normal endplates. Normal disc height, hydration and morphology. Normal bilateral facet joints. Normal central canal and bilateral lateral recesses. Normal bilateral intervertebral neural foramina. Normal lumbar lordosis. There is no substantial scoliosis. Normal conus medullaris that terminates at T12-L1 L1-2: Normal endplates. Normal disc height, hydration and morphology. Normal bilateral facet joints. Normal central canal and bilateral lateral recesses. Normal bilateral intervertebral neural foramina. L2-3: Normal endplates. Normal disc height, hydration and morphology. Normal bilateral facet joints. Normal central canal and bilateral lateral recesses. Normal bilateral intervertebral neural foramina. L3-4: Normal endplates. Normal disc height, hydration and morphology. Normal bilateral facet joints. Normal central canal and bilateral lateral recesses. Normal bilateral intervertebral neural foramina. L4-5: Normal endplates. Normal disc height, hydration and morphology. Normal bilateral facet joints. Normal central canal and bilateral lateral recesses. Normal bilateral intervertebral neural foramina. L5-S1: Normal endplates. Normal disc height, hydration and tiny central disc protrusion. Normal bilateral facet joints. Normal central canal and bilateral lateral recesses. Normal bilateral intervertebral neural foramina. Normal visualized sacral ala. Normal visualized paraspinous soft tissue structures. MRI/Spine Lumbar (Routine) IMPRESSION: No evidence for acute fracture or other significant bony pathology. Tiny central disc protrusion at L5-S1 without spinal stenosis. Electronically Signed: Gasper May MD at 15:59 EDT , Service support ,
[2018-12-15 15:27] VITALS: BP 121/89; PULSE 94; RESP 18; TEMP 36.7; O2SAT 99
--- NOTE | 2018-12-15 16:21 | PCM.PN.REN ---
Patient Problems: Active and Suspected Problems (Last Updated 12/12/18 @ 02:18 by Phil Granados MD) Hypokalemia (Acute) Hyponatremia (Acute) Hypochloremia (Acute) Metabolic alkalosis (Acute) Subjective: Pt said his weakness is better No nausea No vomiting. No SOB - Physical Exam General: Alert, Oriented x3 HEENT: Atraumatic Oral: Moist Mucosa Neck: Supple, No JVD, Negative Carotid Bruits Lungs: Clear to auscultation, Normal air movement, No rhonchi, No wheeze Cardiovascular: Regular rate, Regular Rhythm, Normal S1, Normal S2 Abdomen: Bowel Sounds Present, Soft, Non Tender, Non-Distended Extremities: No clubbing, No cyanosis, No edema Skin: No rashes Musculoskeletal: Arthritic Changes Lymphatic: No Cervical, Supraclavicular, or Inguinal Adenopathy Psych/Mental Status: Appropriate Vital Signs Temp Pulse Resp BP Pulse Ox 98.0 F 94 18 121/89 H 99 12/15/18 15:27 12/15/18 15:27 12/15/18 15:27 12/15/18 15:27 12/15/18 15:27 Oxygen Delivery Method Room Air Weight: 71.7 kg Body Mass Index (BMI) 22.6 Intake and Output for Last 24 Hours 12/13/18 12/14/18 12/15/18 23:59 23:59 23:59 Intake Total 2035 / 2335 1950 / 1950 1150 / 1150 Output Total 1425 / 1725 300 / 300 Balance 610 / 610 1650 / 1650 1150 / 1150 Laboratory Tests Past 24 Hrs 12/15/18 12/15/18 06:26 06:26 WBC 9.1 RBC 2.76 L Hgb 8.8 L Hct 26.7 L MCV 96.7 H MCH 31.9 MCHC 33.0 RDW 16.5 H RDW Differential 54.7 H Plt Count 177 MPV 10.3 Immature Gran % (Auto) 1.100 H Neut % (Auto) 68.2 Lymph % (Auto) 21.6 [place] % (Auto) 8.7 Eos % (Auto) 0.2 Baso % (Auto) 0.2 Absolute Neuts (auto) 6.2 Absolute Lymphs (auto) 1.96 Total Counted Not Reportable Sodium 132 L Potassium 4.1 Chloride 96 L Carbon Dioxide 31.0 Anion Gap 5 BUN 9 Creatinine 0.52 L Estim Creat Clear Calc 196.39 Est GFR (MDRD) Af Amer 231 Est GFR (MDRD) Non-Af 191 BUN/Creatinine Ratio 17.3 Glucose 99 Calcium 8.7 Medical Necessity - Tobacco Use Smoking Status: Light Smoker (<10/day) Tobacco Use: Cigarettes Assessment/Plan All Active Problems (Last Updated 12/12/18 @ 02:18 by Phil Granados MD) Hypokalemia (Acute) Hyponatremia (Acute) Hypochloremia (Acute) Metabolic alkalosis (Acute) 1-severe hypokalemia with paralysis. resolved with replacement Initially presenting potassium level was 1.7. k today 4.1 2-hyponatremia with hypovolemia. Initial presenting level of sodium was 120. Na level improved with IVF. Na 132 this morning Continue to monitor sodium level. 3-metabolic alkalosis. Most probably related to volume contraction. resolved with IVF. HCO3 31 today Renal team will continue to follow. Please call if any question at [phone]
[2018-12-15 22:47] VITALS: BP 118/92; PULSE 105; RESP 18; TEMP 36.3; O2SAT 99
[2018-12-16 05:19] VITALS: BP 119/80; PULSE 115; RESP 18; TEMP 36.4; O2SAT 97
[2018-12-16 05:23] VITALS: PULSE 115
[2018-12-16 06:09] LABS: Anion Gap 10 (5-15); BUN 12 mg/dL (7-18); Calcium,Total 8.9 mg/dL (8.5-10.1); Chloride 96 mmol/L (98-107); Creatinine, Serum 0.71 mg/dL (0.70-1.30); EST Glomerular Filtration Rate 134 mL/min (>60); Est Glom Filt Rate - Afr Amer 162 mL/min (>60); Estimated Creatinine Clearance 143.83 ml/min; Glucose 102 mg/dL (74-106); Potassium 4.3 mmol/L (3.5-5.1); Sodium Level 134 mmol/L (136-145)
--- NOTE | 2018-12-16 08:26 | CON.PCM_ITS ---
Reason for Consult Date of Consultation: 12/16/18 Reason for Consultation: weakness History of Present Illness: pt denies new complaints, has been weak as described below for over 6 weeks. reports history of etoh withdrawal sz, reports last drink two weeks ago. reports mild right low back pain. bowels and bladder no complaints per admit note:The patient is a 38 year old M with a significant history of former alcohol abuse who presented to the emergency department because of pro gressively worsening difficulty to stand or walk. His symptoms has been going on for about a month and a half. Patient has been so severe that he is unable to get up and with food for himself. Reportedly he quit drinking about a month ago. At the emergency department he was found to have a low potassium of 1.7. His sodium was 120; his chloride was 73. Also his CO2 was 34. Past Medical History Medical History: Medical History (Last Reviewed 12/16/18 @ 08:29 by Nabeel Moses MD) Denies previous medical history Allergies bee venom protein (honey bee) Allergy (Verified 12/11/18 23:48) Anaphylaxis Penicillins [PCN] Adverse Reaction (Verified 12/11/18 23:48) Upset Stomach Home Medications: Ambulatory Orders Medication Instructions Recorded NK 12/11/18 Surgical History: no surgical history Lives: Roommate Smoking Status: Light Smoker (<10/day) Tobacco Use: Cigarettes Alcohol: Heavy - last drink by report 2 weeks ago, reports one shot of schnapps - *Family History Maternal History Items: Cancer, Diabetes, Heart Disease, - - Thyroid Paternal History Items: Heart Disease Patient Problems: Active and Suspected Problems (Last Reviewed 12/16/18 @ 08:29 by Nabeel Moses MD) Hypokalemia (Acute) Hyponatremia (Acute) Hypochloremia (Acute) Metabolic alkalosis (Acute) - Physical Exam General: Alert, Oriented x3, Cooperative, No apparent distress HEENT: PERRLA, EOMI Extremities: No Calf Tenderness Musculoskeletal: Muscle Wasting Neurological: Cranial nerves II-XII grossly intact, - - diffuse weakness distal > prox, depressed reflexes Psych/Mental Status: Flat Affect Vital Signs Temp Pulse Resp BP Pulse Ox 36.4 C L 115 H 18 119/80 97 12/16/18 05:19 12/16/18 05:23 12/16/18 05:19 12/16/18 05:19 12/16/18 05:19 Oxygen Delivery Method Room Air Weight: 71.7 kg Body Mass Index (BMI) 22.6 Intake and Output for Last 24 Hours 12/14/18 12/15/18 12/16/18 23:59 23:59 23:59 Intake Total 1950 / 1949 340 / 340 Output Total 300 / 300 225 / 225 Balance 1650 / 1650 1999 115 / 115 Laboratory Tests Past 24 Hrs 12/15/18 12/16/18 06:26 05:37 Sodium 132 L 134 L Potassium 4.1 4.3 Chloride 96 L 96 L Carbon Dioxide 31.0 28.0 Anion Gap 5 10 BUN 9 12 Creatinine 0.52 L 0.71 Estim Creat Clear Calc 196.39 143.83 Est GFR (MDRD) Af Amer 231 162 Est GFR (MDRD) Non-Af 191 134 BUN/Creatinine Ratio 17.3 17.0 Glucose 99 102 Calcium 8.7 8.9 Laboratory Tests 12/16/18 12/15/18 12/15/18 Range/Units 05:37 06:26 06:26 WBC 9.1 (4.4-11.0) K/mm3 RBC 2.76 L (4.6-6.2) M/mm3 Hgb 8.8 L (13.0-16.5) g/dl Hct 26.7 L (40-54) % MCV 96.7 H (80-94) fL MCH 31.9 (27.0-32.0) pg MCHC 33.0 (32-36) g/gl RDW 16.5 H (11.6-14.6) % RDW Differential 54.7 H (35.1-43.9) fl Plt Count 177 (150-450) K/mm3 MPV 10.3 (6.2-12.0) fl Immature Gran % (Auto) 1.100 H (0.0-0.9) % Neut % (Auto) 68.2 (47-70) % Lymph % (Auto) 21.6 (19-41) % [place] % (Auto) 8.7 (0-10) % Eos % (Auto) 0.2 (0-5) % Baso % (Auto) 0.2 (0-1) % Absolute Neuts (auto) 6.2 (2.0-7.7) X10^3/uL Absolute Lymphs (auto) 1.96 (0.83-4.51) X10^3/ul Total Counted Not Reportable Nucleated RBC % (0-5) % Absolute Retic (0-5) 10^3/uL Sodium 134 L 132 L (136-145) mmol/L Potassium 4.3 4.1 (3.5-5.1) mmol/L Chloride 96 L 96 L (98-107) mmol/L Carbon Dioxide 28.0 31.0 (21.0-32.0) mmol/L Anion Gap 10 5 (5-15) BUN 12 9 (7-18) mg/dL Creatinine 0.71 0.52 L (0.70-1.30) mg/dL Estim Creat Clear Calc 143.83 196.39 ml/min Est GFR (MDRD) Af Amer 162 231 (>60) mL/min Est GFR (MDRD) Non-Af 134 191 (>60) mL/min BUN/Creatinine Ratio 17.0 17.3 (10-20) RATIO Glucose 102 99 (74-106) mg/dL Hemoglobin A1c (4.2-6.3) % Calcium 8.9 8.7 (8.5-10.1) mg/dL Phosphorus (2.5-4.9) mg/dL Magnesium (1.6-2.6) mg/dL Iron (65-175) ug/dL TIBC (250-450) ug/dL Iron Saturation (15.0-55.0) % Ferritin (26-388) ng/mL Total Bilirubin (0.20-1.00) mg/dL Direct Bilirubin (0.00-0.30) mg/dL AST (15-37) U/L ALT (16-61) U/L Alkaline Phosphatase (45-117) U/L Total Creatine Kinase (39-308) U/L Troponin I (<0.045) ng/mL Total Protein (6.4-8.2) g/dL Albumin (3.2-5.0) g/dL Globulin (2.2-4.2) g/dL Urine Color (Yellow) Urine Clarity (Clear) Urine pH (5.0 - 8.0) Ur Specific [place] (1.002-1.030) Urine Protein (Negative) mg/dl Urine Glucose (UA) (Normal) mg/dl Urine Ketones (Negative) mg/dl Urine Occult Blood (Negative) /ul Urine Nitrite (Negative) Urine Bilirubin (Negative) mg/dL Urine Urobilinogen (Normal) mg/dl Ur Leukocyte Esterase (Negative) /ul Urine RBC (0-5) /hpf Urine WBC (0-5) /hpf Ur Squamous Epith Cells (0-5) /hpf Amorphous Sediment Urine Bacteria (None Seen) /hpf Urine Mucus (<or=2+) /hpf Ur Random Sodium (Not Establ.) mmol/L Urine Creatinine (NO RANGE EST.) mg/dL Urine Potassium (Not Establ.) mmol/L Urine Chloride (Not Establ.) mmol/L Urine Opiates Screen (< 300 ng/mL) Urine Methadone Screen (< 300 ng/mL) Ur Barbiturates Screen (< 200 ng/mL) Ur Phencyclidine Scrn (< 25 ng/mL) Ur Amphetamines Screen (<1000 ng/mL) U Methamphetamin-MDMA (< 500 ng/mL) U Benzodiazepines Scrn (< 200 ng/mL) Urine Cocaine Screen (< 300 ng/mL) U Cannabinoids Screen (< 50 ng/mL) Ur Drug Screen Comment Ethyl Alcohol mg/dL 12/14/18 12/13/18 12/13/18 Range/Units 06:40 20:00 04:40 WBC (4.4-11.0) K/mm3 RBC (4.6-6.2) M/mm3 Hgb (13.0-16.5) g/dl Hct (40-54) % MCV (80-94) fL MCH (27.0-32.0) pg MCHC (32-36) g/gl RDW (11.6-14.6) % RDW Differential (35.1-43.9) fl Plt Count (150-450) K/mm3 MPV (6.2-12.0) fl Immature Gran % (Auto) (0.0-0.9) % Neut % (Auto) (47-70) % Lymph % (Auto) (19-41) % [place] % (Auto) (0-10) % Eos % (Auto) (0-5) % Baso % (Auto) (0-1) % Absolute Neuts (auto) (2.0-7.7) X10^3/uL Absolute Lymphs (auto) (0.83-4.51) X10^3/ul Total Counted Nucleated RBC % (0-5) % Absolute Retic (0-5) 10^3/uL Sodium 135 L 131 L (136-145) mmol/L Potassium 3.8 3.9 (3.5-5.1) mmol/L Chloride 94 L 93 L (98-107) mmol/L Carbon Dioxide 33.0 H 33.0 H (21.0-32.0) mmol/L Anion Gap 8 5 (5-15) BUN 6 L 5 L (7-18) mg/dL Creatinine 0.55 L 0.58 L (0.70-1.30) mg/dL Estim Creat Clear Calc 185.68 176.07 ml/min Est GFR (MDRD) Af Amer 216 204 (>60) mL/min Est GFR (MDRD) Non-Af 178 168 (>60) mL/min BUN/Creatinine Ratio 10.9 8.6 L (10-20) RATIO Glucose 88 123 H (74-106) mg/dL Hemoglobin A1c (4.2-6.3) % Calcium 8.8 8.6 (8.5-10.1) mg/dL Phosphorus (2.5-4.9) mg/dL Magnesium (1.6-2.6) mg/dL Iron 93 (65-175) ug/dL TIBC 210 L (250-450) ug/dL Iron Saturation 44.3 (15.0-55.0) % Ferritin 689 H (26-388) ng/mL Total Bilirubin (0.20-1.00) mg/dL Direct Bilirubin (0.00-0.30) mg/dL AST (15-37) U/L ALT (16-61) U/L Alkaline Phosphatase (45-117) U/L Total Creatine Kinase (39-308) U/L Troponin I (<0.045) ng/mL Total Protein (6.4-8.2) g/dL Albumin (3.2-5.0) g/dL Globulin (2.2-4.2) g/dL Urine Color (Yellow) Urine Clarity (Clear) Urine pH (5.0 - 8.0) Ur Specific [place] (1.002-1.030) Urine Protein (Negative) mg/dl Urine Glucose (UA) (Normal) mg/dl Urine Ketones (Negative) mg/dl Urine Occult Blood (Negative) /ul Urine Nitrite (Negative) Urine Bilirubin (Negative) mg/dL Urine Urobilinogen (Normal) mg/dl Ur Leukocyte Esterase (Negative) /ul Urine RBC (0-5) /hpf Urine WBC (0-5) /hpf Ur Squamous Epith Cells (0-5) /hpf Amorphous Sediment Urine Bacteria (None Seen) /hpf Urine Mucus (<or=2+) /hpf Ur Random Sodium (Not Establ.) mmol/L Urine Creatinine (NO RANGE EST.) mg/dL Urine Potassium (Not Establ.) mmol/L Urine Chloride (Not Establ.) mmol/L Urine Opiates Screen (< 300 ng/mL) Urine Methadone Screen (< 300 ng/mL) Ur Barbiturates Screen (< 200 ng/mL) Ur Phencyclidine Scrn (< 25 ng/mL) Ur Amphetamines Screen (<1000 ng/mL) U Methamphetamin-MDMA (< 500 ng/mL) U Benzodiazepines Scrn (< 200 ng/mL) Urine Cocaine Screen (< 300 ng/mL) U Cannabinoids Screen (< 50 ng/mL) Ur Drug Screen Comment Ethyl Alcohol mg/dL 12/13/18 12/13/18 12/12/18 Range/Units 04:40 04:40 19:30 WBC 7.5 (4.4-11.0) K/mm3 RBC 2.55 L (4.6-6.2) M/mm3 Hgb 8.5 L (13.0-16.5) g/dl Hct 24.5 L (40-54) % MCV 96.1 H (80-94) fL MCH 33.3 H (27.0-32.0) pg MCHC 34.7 (32-36) g/gl RDW 16.1 H (11.6-14.6) % RDW Differential 52.8 H (35.1-43.9) fl Plt Count 181 (150-450) K/mm3 MPV 9.7 (6.2-12.0) fl Immature Gran % (Auto) (0.0-0.9) % Neut % (Auto) (47-70) % Lymph % (Auto) (19-41) % [place] % (Auto) (0-10) % Eos % (Auto) (0-5) % Baso % (Auto) (0-1) % Absolute Neuts (auto) (2.0-7.7) X10^3/uL Absolute Lymphs (auto) (0.83-4.51) X10^3/ul Total Counted Nucleated RBC % (0-5) % Absolute Retic (0-5) 10^3/uL Sodium 134 L 132 L (136-145) mmol/L Potassium 3.1 L 2.7 L* (3.5-5.1) mmol/L Chloride 88 L 87 L (98-107) mmol/L Carbon Dioxide 38.0 H 38.0 H (21.0-32.0) mmol/L Anion Gap 8 (5-15) BUN 7 8 (7-18) mg/dL Creatinine 0.48 L 0.56 L (0.70-1.30) mg/dL Estim Creat Clear Calc 208.84 179.01 ml/min Est GFR (MDRD) Af Amer 251 210 (>60) mL/min Est GFR (MDRD) Non-Af 207 173 (>60) mL/min BUN/Creatinine Ratio 14.5 14.2 (10-20) RATIO Glucose 109 H 129 H (74-106) mg/dL Hemoglobin A1c (4.2-6.3) % Calcium 8.2 L 7.5 L (8.5-10.1) mg/dL Phosphorus 4.3 3.7 (2.5-4.9) mg/dL Magnesium 1.9 (1.6-2.6) mg/dL Iron (65-175) ug/dL TIBC (250-450) ug/dL Iron Saturation (15.0-55.0) % Ferritin (26-388) ng/mL Total Bilirubin (0.20-1.00) mg/dL Direct Bilirubin (0.00-0.30) mg/dL AST (15-37) U/L ALT (16-61) U/L Alkaline Phosphatase (45-117) U/L Total Creatine Kinase (39-308) U/L Troponin I (<0.045) ng/mL Total Protein (6.4-8.2) g/dL Albumin 2.0 L (3.2-5.0) g/dL Globulin (2.2-4.2) g/dL Urine Color (Yellow) Urine Clarity (Clear) Urine pH (5.0 - 8.0) Ur Specific [place] (1.002-1.030) Urine Protein (Negative) mg/dl Urine Glucose (UA) (Normal) mg/dl Urine Ketones (Negative) mg/dl Urine Occult Blood (Negative) /ul Urine Nitrite (Negative) Urine Bilirubin (Negative) mg/dL Urine Urobilinogen (Normal) mg/dl Ur Leukocyte Esterase (Negative) /ul Urine RBC (0-5) /hpf Urine WBC (0-5) /hpf Ur Squamous Epith Cells (0-5) /hpf Amorphous Sediment Urine Bacteria (None Seen) /hpf Urine Mucus (<or=2+) /hpf Ur Random Sodium (Not Establ.) mmol/L Urine Creatinine (NO RANGE EST.) mg/dL Urine Potassium (Not Establ.) mmol/L Urine Chloride (Not Establ.) mmol/L Urine Opiates Screen (< 300 ng/mL) Urine Methadone Screen (< 300 ng/mL) Ur Barbiturates Screen (< 200 ng/mL) Ur Phencyclidine Scrn (< 25 ng/mL) Ur Amphetamines Screen (<1000 ng/mL) U Methamphetamin-MDMA (< 500 ng/mL) U Benzodiazepines Scrn (< 200 ng/mL) Urine Cocaine Screen (< 300 ng/mL) U Cannabinoids Screen (< 50 ng/mL) Ur Drug Screen Comment Ethyl Alcohol mg/dL 12/12/18 12/12/18 12/12/18 Range/Units 19:30 14:20 06:00 WBC (4.4-11.0) K/mm3 RBC (4.6-6.2) M/mm3 Hgb (13.0-16.5) g/dl Hct (40-54) % MCV (80-94) fL MCH (27.0-32.0) pg MCHC (32-36) g/gl RDW (11.6-14.6) % RDW Differential (35.1-43.9) fl Plt Count (150-450) K/mm3 MPV (6.2-12.0) fl Immature Gran % (Auto) (0.0-0.9) % Neut % (Auto) (47-70) % Lymph % (Auto) (19-41) % [place] % (Auto) (0-10) % Eos % (Auto) (0-5) % Baso % (Auto) (0-1) % Absolute Neuts (auto) (2.0-7.7) X10^3/uL Absolute Lymphs (auto) (0.83-4.51) X10^3/ul Total Counted Nucleated RBC % (0-5) % Absolute Retic (0-5) 10^3/uL Sodium 128 L 125 L (136-145) mmol/L Potassium 2.6 L* 2.5 L* (3.5-5.1) mmol/L Chloride 84 L 81 L (98-107) mmol/L Carbon Dioxide 38.0 H 37.0 H (21.0-32.0) mmol/L Anion Gap 6 7 (5-15) BUN 7 9 (7-18) mg/dL Creatinine 0.56 L 0.62 L (0.70-1.30) mg/dL Estim Creat Clear Calc 179.01 161.68 ml/min Est GFR (MDRD) Af Amer 214 190 (>60) mL/min Est GFR (MDRD) Non-Af 176 157 (>60) mL/min BUN/Creatinine Ratio 12.6 14.6 (10-20) RATIO Glucose 129 H 145 H (74-106) mg/dL Hemoglobin A1c (4.2-6.3) % Calcium 7.6 L 7.5 L (8.5-10.1) mg/dL Phosphorus (2.5-4.9) mg/dL Magnesium (1.6-2.6) mg/dL Iron (65-175) ug/dL TIBC (250-450) ug/dL Iron Saturation (15.0-55.0) % Ferritin (26-388) ng/mL Total Bilirubin 1.10 H (0.20-1.00) mg/dL Direct Bilirubin 0.44 H (0.00-0.30) mg/dL AST 106 H (15-37) U/L ALT 26 (16-61) U/L Alkaline Phosphatase 176 H (45-117) U/L Total Creatine Kinase (39-308) U/L Troponin I (<0.045) ng/mL Total Protein 6.3 L (6.4-8.2) g/dL Albumin 2.2 L (3.2-5.0) g/dL Globulin 4.1 (2.2-4.2) g/dL Urine Color (Yellow) Urine Clarity (Clear) Urine pH (5.0 - 8.0) Ur Specific [place] (1.002-1.030) Urine Protein (Negative) mg/dl Urine Glucose (UA) (Normal) mg/dl Urine Ketones (Negative) mg/dl Urine Occult Blood (Negative) /ul Urine Nitrite (Negative) Urine Bilirubin (Negative) mg/dL Urine Urobilinogen (Normal) mg/dl Ur Leukocyte Esterase (Negative) /ul Urine RBC (0-5) /hpf Urine WBC (0-5) /hpf Ur Squamous Epith Cells (0-5) /hpf Amorphous Sediment Urine Bacteria (None Seen) /hpf Urine Mucus (<or=2+) /hpf Ur Random Sodium (Not Establ.) mmol/L Urine Creatinine (NO RANGE EST.) mg/dL Urine Potassium (Not Establ.) mmol/L Urine Chloride (Not Establ.) mmol/L Urine Opiates Screen (< 300 ng/mL) Urine Methadone Screen (< 300 ng/mL) Ur Barbiturates Screen (< 200 ng/mL) Ur Phencyclidine Scrn (< 25 ng/mL) Ur Amphetamines Screen (<1000 ng/mL) U Methamphetamin-MDMA (< 500 ng/mL) U Benzodiazepines Scrn (< 200 ng/mL) Urine Cocaine Screen (< 300 ng/mL) U Cannabinoids Screen (< 50 ng/mL) Ur Drug Screen Comment Ethyl Alcohol mg/dL 12/12/18 12/12/18 12/12/18 Range/Units 06:00 02:45 02:45 WBC (4.4-11.0) K/mm3 RBC (4.6-6.2) M/mm3 Hgb (13.0-16.5) g/dl Hct (40-54) % MCV (80-94) fL MCH (27.0-32.0) pg MCHC (32-36) g/gl RDW (11.6-14.6) % RDW Differential (35.1-43.9) fl Plt Count (150-450) K/mm3 MPV (6.2-12.0) fl Immature Gran % (Auto) (0.0-0.9) % Neut % (Auto) (47-70) % Lymph % (Auto) (19-41) % [place] % (Auto) (0-10) % Eos % (Auto) (0-5) % Baso % (Auto) (0-1) % Absolute Neuts (auto) (2.0-7.7) X10^3/uL Absolute Lymphs (auto) (0.83-4.51) X10^3/ul Total Counted Nucleated RBC % (0-5) % Absolute Retic (0-5) 10^3/uL Sodium 125 L (136-145) mmol/L Potassium 2.1 L* (3.5-5.1) mmol/L Chloride 76 L (98-107) mmol/L Carbon Dioxide 37.0 H (21.0-32.0) mmol/L Anion Gap 12 (5-15) BUN 9 (7-18) mg/dL Creatinine 0.69 L (0.70-1.30) mg/dL Estim Creat Clear Calc 145.28 ml/min Est GFR (MDRD) Af Amer 166 (>60) mL/min Est GFR (MDRD) Non-Af 137 (>60) mL/min BUN/Creatinine Ratio 13.0 (10-20) RATIO Glucose 143 H (74-106) mg/dL Hemoglobin A1c (4.2-6.3) % Calcium 7.7 L (8.5-10.1) mg/dL Phosphorus (2.5-4.9) mg/dL Magnesium (1.6-2.6) mg/dL Iron (65-175) ug/dL TIBC (250-450) ug/dL Iron Saturation (15.0-55.0) % Ferritin (26-388) ng/mL Total Bilirubin (0.20-1.00) mg/dL Direct Bilirubin (0.00-0.30) mg/dL AST (15-37) U/L ALT (16-61) U/L Alkaline Phosphatase (45-117) U/L Total Creatine Kinase (39-308) U/L Troponin I < 0.015 < 0.015 (<0.045) ng/mL Total Protein (6.4-8.2) g/dL Albumin (3.2-5.0) g/dL Globulin (2.2-4.2) g/dL Urine Color (Yellow) Urine Clarity (Clear) Urine pH (5.0 - 8.0) Ur Specific [place] (1.002-1.030) Urine Protein (Negative) mg/dl Urine Glucose (UA) (Normal) mg/dl Urine Ketones (Negative) mg/dl Urine Occult Blood (Negative) /ul Urine Nitrite (Negative) Urine Bilirubin (Negative) mg/dL Urine Urobilinogen (Normal) mg/dl Ur Leukocyte Esterase (Negative) /ul Urine RBC (0-5) /hpf Urine WBC (0-5) /hpf Ur Squamous Epith Cells (0-5) /hpf Amorphous Sediment Urine Bacteria (None Seen) /hpf Urine Mucus (<or=2+) /hpf Ur Random Sodium 12 (Not Establ.) mmol/L Urine Creatinine 25.30 (NO RANGE EST.) mg/dL Urine Potassium 1.0 (Not Establ.) mmol/L Urine Chloride 11 (Not Establ.) mmol/L Urine Opiates Screen (< 300 ng/mL) Urine Methadone Screen (< 300 ng/mL) Ur Barbiturates Screen (< 200 ng/mL) Ur Phencyclidine Scrn (< 25 ng/mL) Ur Amphetamines Screen (<1000 ng/mL) U Methamphetamin-MDMA (< 500 ng/mL) U Benzodiazepines Scrn (< 200 ng/mL) Urine Cocaine Screen (< 300 ng/mL) U Cannabinoids Screen (< 50 ng/mL) Ur Drug Screen Comment Ethyl Alcohol mg/dL 12/12/18 12/12/18 12/12/18 Range/Units 02:45 02:45 00:15 WBC (4.4-11.0) K/mm3 RBC (4.6-6.2) M/mm3 Hgb (13.0-16.5) g/dl Hct (40-54) % MCV (80-94) fL MCH (27.0-32.0) pg MCHC (32-36) g/gl RDW (11.6-14.6) % RDW Differential (35.1-43.9) fl Plt Count (150-450) K/mm3 MPV (6.2-12.0) fl Immature Gran % (Auto) (0.0-0.9) % Neut % (Auto) (47-70) % Lymph % (Auto) (19-41) % [place] % (Auto) (0-10) % Eos % (Auto) (0-5) % Baso % (Auto) (0-1) % Absolute Neuts (auto) (2.0-7.7) X10^3/uL Absolute Lymphs (auto) (0.83-4.51) X10^3/ul Total Counted Nucleated RBC % (0-5) % Absolute Retic (0-5) 10^3/uL Sodium (136-145) mmol/L Potassium (3.5-5.1) mmol/L Chloride (98-107) mmol/L Carbon Dioxide (21.0-32.0) mmol/L Anion Gap (5-15) BUN (7-18) mg/dL Creatinine (0.70-1.30) mg/dL Estim Creat Clear Calc ml/min Est GFR (MDRD) Af Amer (>60) mL/min Est GFR (MDRD) Non-Af (>60) mL/min BUN/Creatinine Ratio (10-20) RATIO Glucose (74-106) mg/dL Hemoglobin A1c 5.5 (4.2-6.3) % Calcium (8.5-10.1) mg/dL Phosphorus (2.5-4.9) mg/dL Magnesium 1.7 (1.6-2.6) mg/dL Iron (65-175) ug/dL TIBC (250-450) ug/dL Iron Saturation (15.0-55.0) % Ferritin (26-388) ng/mL Total Bilirubin (0.20-1.00) mg/dL Direct Bilirubin (0.00-0.30) mg/dL AST (15-37) U/L ALT (16-61) U/L Alkaline Phosphatase (45-117) U/L Total Creatine Kinase (39-308) U/L Troponin I (<0.045) ng/mL Total Protein (6.4-8.2) g/dL Albumin (3.2-5.0) g/dL Globulin (2.2-4.2) g/dL Urine Color (Yellow) Urine Clarity (Clear) Urine pH (5.0 - 8.0) Ur Specific [place] (1.002-1.030) Urine Protein (Negative) mg/dl Urine Glucose (UA) (Normal) mg/dl Urine Ketones (Negative) mg/dl Urine Occult Blood (Negative) /ul Urine Nitrite (Negative) Urine Bilirubin (Negative) mg/dL Urine Urobilinogen (Normal) mg/dl Ur Leukocyte Esterase (Negative) /ul Urine RBC (0-5) /hpf Urine WBC (0-5) /hpf Ur Squamous Epith Cells (0-5) /hpf Amorphous Sediment Urine Bacteria (None Seen) /hpf Urine Mucus (<or=2+) /hpf Ur Random Sodium (Not Establ.) mmol/L Urine Creatinine (NO RANGE EST.) mg/dL Urine Potassium (Not Establ.) mmol/L Urine Chloride (Not Establ.) mmol/L Urine Opiates Screen NEGATIVE (< 300 ng/mL) Urine Methadone Screen NEGATIVE (< 300 ng/mL) Ur Barbiturates Screen NEGATIVE (< 200 ng/mL) Ur Phencyclidine Scrn NEGATIVE (< 25 ng/mL) Ur Amphetamines Screen NEGATIVE (<1000 ng/mL) U Methamphetamin-MDMA NEGATIVE (< 500 ng/mL) U Benzodiazepines Scrn NEGATIVE (< 200 ng/mL) Urine Cocaine Screen NEGATIVE (< 300 ng/mL) U Cannabinoids Screen NEGATIVE (< 50 ng/mL) Ur Drug Screen Comment Ethyl Alcohol mg/dL 12/12/18 12/12/18 12/12/18 Range/Units 00:15 00:00 00:00 WBC (4.4-11.0) K/mm3 RBC (4.6-6.2) M/mm3 Hgb (13.0-16.5) g/dl Hct (40-54) % MCV (80-94) fL MCH (27.0-32.0) pg MCHC (32-36) g/gl RDW (11.6-14.6) % RDW Differential (35.1-43.9) fl Plt Count (150-450) K/mm3 MPV (6.2-12.0) fl Immature Gran % (Auto) (0.0-0.9) % Neut % (Auto) (47-70) % Lymph % (Auto) (19-41) % [place] % (Auto) (0-10) % Eos % (Auto) (0-5) % Baso % (Auto) (0-1) % Absolute Neuts (auto) (2.0-7.7) X10^3/uL Absolute Lymphs (auto) (0.83-4.51) X10^3/ul Total Counted Nucleated RBC % (0-5) % Absolute Retic (0-5) 10^3/uL Sodium 120 L (136-145) mmol/L Potassium 1.7 L* (3.5-5.1) mmol/L Chloride 73 L* (98-107) mmol/L Carbon Dioxide 34.0 H (21.0-32.0) mmol/L Anion Gap 13 (5-15) BUN 10 (7-18) mg/dL Creatinine 0.98 (0.70-1.30) mg/dL Estim Creat Clear Calc 104.21 ml/min Est GFR (MDRD) Af Amer 111 (>60) mL/min Est GFR (MDRD) Non-Af 91 (>60) mL/min BUN/Creatinine Ratio 10.2 (10-20) RATIO Glucose 158 H (74-106) mg/dL Hemoglobin A1c (4.2-6.3) % Calcium 8.2 L (8.5-10.1) mg/dL Phosphorus 2.6 (2.5-4.9) mg/dL Magnesium 1.9 (1.6-2.6) mg/dL Iron (65-175) ug/dL TIBC (250-450) ug/dL Iron Saturation (15.0-55.0) % Ferritin (26-388) ng/mL Total Bilirubin (0.20-1.00) mg/dL Direct Bilirubin (0.00-0.30) mg/dL AST (15-37) U/L ALT (16-61) U/L Alkaline Phosphatase (45-117) U/L Total Creatine Kinase 124 (39-308) U/L Troponin I < 0.015 (<0.045) ng/mL Total Protein (6.4-8.2) g/dL Albumin (3.2-5.0) g/dL Globulin (2.2-4.2) g/dL Urine Color Yellow (Yellow) Urine Clarity Sl. Cloudy (Clear) Urine pH 7.0 (5.0 - 8.0) Ur Specific [place] 1.005 (1.002-1.030) Urine Protein 30 H (Negative) mg/dl Urine Glucose (UA) Normal (Normal) mg/dl Urine Ketones Negative (Negative) mg/dl Urine Occult Blood 10 H (Negative) /ul Urine Nitrite Negative (Negative) Urine Bilirubin 1 H (Negative) mg/dL Urine Urobilinogen 4 H (Normal) mg/dl Ur Leukocyte Esterase 25 H (Negative) /ul Urine RBC 0-5 SEEN (0-5) /hpf Urine WBC 0-5 SEEN (0-5) /hpf Ur Squamous Epith Cells 0-5 SEEN (0-5) /hpf Amorphous Sediment 1+ Urine Bacteria 0 SEEN (None Seen) /hpf Urine Mucus 0 SEEN (<or=2+) /hpf Ur Random Sodium (Not Establ.) mmol/L Urine Creatinine (NO RANGE EST.) mg/dL Urine Potassium (Not Establ.) mmol/L Urine Chloride (Not Establ.) mmol/L Urine Opiates Screen (< 300 ng/mL) Urine Methadone Screen (< 300 ng/mL) Ur Barbiturates Screen (< 200 ng/mL) Ur Phencyclidine Scrn (< 25 ng/mL) Ur Amphetamines Screen (<1000 ng/mL) U Methamphetamin-MDMA (< 500 ng/mL) U Benzodiazepines Scrn (< 200 ng/mL) Urine Cocaine Screen (< 300 ng/mL) U Cannabinoids Screen (< 50 ng/mL) Ur Drug Screen Comment Ethyl Alcohol < 3.0 mg/dL 12/12/18 Range/Units 00:00 WBC 11.4 H (4.4-11.0) K/mm3 RBC 2.84 L (4.6-6.2) M/mm3 Hgb 9.2 L (13.0-16.5) g/dl Hct 26.6 L (40-54) % MCV 93.7 (80-94) fL MCH 32.4 H (27.0-32.0) pg MCHC 34.6 (32-36) g/gl RDW 16.9 H (11.6-14.6) % RDW Differential 57.2 H (35.1-43.9) fl Plt Count 260 (150-450) K/mm3 MPV 10.1 (6.2-12.0) fl Immature Gran % (Auto) 0.300 (0.0-0.9) % Neut % (Auto) 77.6 H (47-70) % Lymph % (Auto) 14.7 L (19-41) % [place] % (Auto) 7.0 (0-10) % Eos % (Auto) 0.1 (0-5) % Baso % (Auto) 0.3 (0-1) % Absolute Neuts (auto) 8.8 H (2.0-7.7) X10^3/uL Absolute Lymphs (auto) 1.68 (0.83-4.51) X10^3/ul Total Counted Not Reportable Nucleated RBC % 0.7 (0-5) % Absolute Retic 0.09 (0-5) 10^3/uL Sodium (136-145) mmol/L Potassium (3.5-5.1) mmol/L Chloride (98-107) mmol/L Carbon Dioxide (21.0-32.0) mmol/L Anion Gap (5-15) BUN (7-18) mg/dL Creatinine (0.70-1.30) mg/dL Estim Creat Clear Calc ml/min Est GFR (MDRD) Af Amer (>60) mL/min Est GFR (MDRD) Non-Af (>60) mL/min BUN/Creatinine Ratio (10-20) RATIO Glucose (74-106) mg/dL Hemoglobin A1c (4.2-6.3) % Calcium (8.5-10.1) mg/dL Phosphorus (2.5-4.9) mg/dL Magnesium (1.6-2.6) mg/dL Iron (65-175) ug/dL TIBC (250-450) ug/dL Iron Saturation (15.0-55.0) % Ferritin (26-388) ng/mL Total Bilirubin (0.20-1.00) mg/dL Direct Bilirubin (0.00-0.30) mg/dL AST (15-37) U/L ALT (16-61) U/L Alkaline Phosphatase (45-117) U/L Total Creatine Kinase (39-308) U/L Troponin I (<0.045) ng/mL Total Protein (6.4-8.2) g/dL Albumin (3.2-5.0) g/dL Globulin (2.2-4.2) g/dL Urine Color (Yellow) Urine Clarity (Clear) Urine pH (5.0 - 8.0) Ur Specific [place] (1.002-1.030) Urine Protein (Negative) mg/dl Urine Glucose (UA) (Normal) mg/dl Urine Ketones (Negative) mg/dl Urine Occult Blood (Negative) /ul Urine Nitrite (Negative) Urine Bilirubin (Negative) mg/dL Urine Urobilinogen (Normal) mg/dl Ur Leukocyte Esterase (Negative) /ul Urine RBC (0-5) /hpf Urine WBC (0-5) /hpf Ur Squamous Epith Cells (0-5) /hpf Amorphous Sediment Urine Bacteria (None Seen) /hpf Urine Mucus (<or=2+) /hpf Ur Random Sodium (Not Establ.) mmol/L Urine Creatinine (NO RANGE EST.) mg/dL Urine Potassium (Not Establ.) mmol/L Urine Chloride (Not Establ.) mmol/L Urine Opiates Screen (< 300 ng/mL) Urine Methadone Screen (< 300 ng/mL) Ur Barbiturates Screen (< 200 ng/mL) Ur Phencyclidine Scrn (< 25 ng/mL) Ur Amphetamines Screen (<1000 ng/mL) U Methamphetamin-MDMA (< 500 ng/mL) U Benzodiazepines Scrn (< 200 ng/mL) Urine Cocaine Screen (< 300 ng/mL) U Cannabinoids Screen (< 50 ng/mL) Ur Drug Screen Comment Ethyl Alcohol mg/dL Assessment/Plan All Active Problems (Last Reviewed 12/16/18 @ 08:29 by Nabeel Moses MD) Hypokalemia (Acute) Hyponatremia (Acute) Hypochloremia (Acute) Metabolic alkalosis (Acute) weakness, 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 pt/ot rec ecf placement pt aware of imperative need to avoid etoh to allow recovery vitamin replacement ok to dc from neuro standpoint if otherwise medically stable
--- NOTE | 2018-12-16 10:06 | CASEMGMT ---
Social Work Note Per Physician pt will likely need SNF at discharge. SKYE met with pt, introduced self and role at [facility]. Pt presently sleeping and hard to awake when this worker enter the room. Pt going in and out of sleeping during this worker's conversation. SW asked pt about calling 800 number for Medicaid to be reactivated and pt states he hasn't done so. SW encouraged pt to call 800 number to get reactivated for Medicaid and informed pt that if SNF is needed and pt's Medicaid is not reactivated it will be private pay for SNF. SW again informed pt to call 800 number to reactive medicaid. SKYE will follow up with pt later today and ask pt to call 800 number to reactive Medicaid. If SNF is needed, pt would need Medicaid to go to SNF. Nyla Ashton TACK MAKER, RECEPTIONIST SECRETARY
[2018-12-16 10:30] VITALS: BP 122/84; PULSE 105; RESP 18; TEMP 36.6; O2SAT 95
[2018-12-16] MEDS: Enoxaparin 40 MG/0.4 ML Syringe SC (10:45)
[2018-12-16] MEDS: Pantoprazole Sodium 40 MG Tablet PO (10:46)
--- NOTE | 2018-12-16 11:31 | PCM.PN.REN ---
Patient Problems: Active and Suspected Problems (Last Reviewed 12/16/18 @ 08:29 by Nabeel Moses MD) Hypokalemia (Acute) Hyponatremia (Acute) Hypochloremia (Acute) Metabolic alkalosis (Acute) Subjective: No new events. - Physical Exam General: Alert, Oriented x3, Cooperative HEENT: Atraumatic, PERRLA, EOMI, Normocephalic Neck: Supple, No JVD, Negative Carotid Bruits Lungs: Clear to auscultation, Normal air movement Cardiovascular: Regular rate, No murmurs Abdomen: Bowel Sounds Present, Soft, Non Tender Extremities: No edema, Capillary Refill Less than 3 Seconds Skin: No rashes, No breakdown Musculoskeletal: No Tenderness to Palpation of Joints or Extremities Neurological: Cranial nerves II-XII grossly intact Psych/Mental Status: Normal Affect, Appropriate Vital Signs Temp Pulse Resp BP Pulse Ox 97.5 F L 115 H 18 119/80 97 12/16/18 05:19 12/16/18 05:23 12/16/18 05:19 12/16/18 05:19 12/16/18 05:19 Oxygen Delivery Method Room Air Weight: 71.7 kg Body Mass Index (BMI) 22.6 Intake and Output for Last 24 Hours 12/14/18 12/15/18 12/16/18 23:59 23:59 23:59 Intake Total 1950 / 1950 1999 340 / 340 Output Total 300 / 300 225 / 225 Balance 1650 / 1650 1999 115 / 115 Laboratory Tests Past 24 Hrs 12/16/18 05:37 Sodium 134 L Potassium 4.3 Chloride 96 L Carbon Dioxide 28.0 Anion Gap 10 BUN 12 Creatinine 0.71 Estim Creat Clear Calc 143.83 Est GFR (MDRD) Af Amer 162 Est GFR (MDRD) Non-Af 134 BUN/Creatinine Ratio 17.0 Glucose 102 Calcium 8.9 Medical Necessity - Tobacco Use Smoking Status: Light Smoker (<10/day) Tobacco Use: Cigarettes Assessment/Plan All Active Problems (Last Reviewed 12/16/18 @ 08:29 by Nabeel Moses MD) Hypokalemia (Acute) Hyponatremia (Acute) Hypochloremia (Acute) Metabolic alkalosis (Acute) 1-severe hypokalemia with paralysis. resolved with replacement Initially presenting potassium level was 1.7. Now normal. Random urine potassium is negligible. Unlikely urinary losses. Most likely poor oral intake related to alcohol abuse. 2-hyponatremia with hypovolemia. Initial presenting level of sodium was 120. Na level improved with IVF. Continue to monitor sodium level. 3-metabolic alkalosis. Most probably related to volume contraction. resolved with IVF Obtain nerve conduction studies today. Okay to discharge
[2018-12-16 11:54] VITALS: PULSE 105
--- NOTE | 2018-12-16 12:07 | CPS ---
Discussed the ordered nerve conduction/emg study with Neurologist(Dr. Moses) after his consult of pt this morning. He requests that testing still be done and requested one upper/one lower instead of bilateral lower study. He also wants only NCS with no EMG. Testing completed on pt's right arm/right leg. Report placed in Dr. Moses's box to be read.
--- NOTE | 2018-12-16 15:09 | PN_ITS ---
Patient Problems: Active and Suspected Problems (Last Reviewed 12/16/18 @ 08:29 by Nabeel Moses MD) Hypokalemia (Acute) Hyponatremia (Acute) Hypochloremia (Acute) Metabolic alkalosis (Acute) Subjective: Patient seen and examined. He still complains of severe weakness, which he says is gotten progressively worse. He is barely able to lift his arms or his lower extremities. Review of systems otherwise negative. Vitals/I&O's: Vital Signs Temp Pulse Resp BP Pulse Ox 97.8 F 105 H 18 122/84 H 95 12/16/18 10:30 12/16/18 11:54 12/16/18 10:30 12/16/18 10:30 12/16/18 10:30 Oxygen Delivery Method Room Air Weight: 158 lb 1.143 oz Body Mass Index (BMI) 22.6 Intake and Output for Last 24 Hours 12/14/18 12/15/18 12/16/18 23:59 23:59 23:59 Intake Total 1950 / 1950 1999 340 / 340 Output Total 300 / 300 225 / 225 Balance 1650 / 1650 1999 115 / 115 General: Alert, Oriented x3, Cooperative, very Lethargic HEENT: Atraumatic, PERRLA, EOMI, Normocephalic Oral: Moist Mucosa Neck: Supple, No JVD, Negative Carotid Bruits Lungs: Clear to auscultation, Normal air movement, No rhonchi, No wheeze, No rales Cardiovascular: Regular rate, Normal S1, Normal S2, No murmurs Abdomen: Bowel Sounds Present, Soft, Non Tender, Non-Distended Extremities: No edema, Capillary Refill Less than 3 Seconds Skin: No rashes, No breakdown Musculoskeletal: No Tenderness to Palpation of Joints or Extremities, Muscle Wasting Neurological: Cranial nerves II-XII grossly intact, - - power 3-/5 in all extremities; has bilateral foot drop. Psych/Mental Status: Normal Affect, Appropriate Laboratory Results 12/16/18 05:37: Sodium 134 L, Potassium 4.3, Chloride 96 L, Carbon Dioxide 28.0, Anion Gap 10, BUN 12, Creatinine 0.71, Estim Creat Clear Calc 143.83, Est GFR (MDRD) Af Amer 162, Est GFR (MDRD) Non-Af 134, BUN/Creatinine Ratio 17.0, Glucose 102, Calcium 8.9 Diagnostic Data Chest X-Ray 12/12/18 00:00 IMPRESSION: Pulmonary hypoexpansion and pulmonary edema. at 0054 Reported and signed by: Farhan Simpson MD Electronically Signed: Farhan Simpson MD at 0:53 EDT Tel , Service support , Brain CT 12/12/18 00:01 IMPRESSION: Trace brain atrophy. This is unusual for a patient of stated age 38 years. Differential diagnosis includes chronic illness, chronic alcohol abuse, chronic drug use, malnutrition, HIV, amongst other potential etiologies. ASPECT 10. Individualized dose optimization techniques were used for this CT. at 0037 Reported and signed by: Farhan Simpson MD Electronically Signed: Farhan Simpson MD at 0:36 EDT Tel , Service support , Wrist X-Ray 12/14/18 09:41 IMPRESSION: No acute fracture. Nonunion scaphoid fracture (since 2016). Electronically Signed: Rigo Lamas MD at 15:08 EDT , Service support , Forearm X-Ray 12/14/18 12:30 IMPRESSION: No fracture or malalignment. Electronically Signed: Rigo Lamas MD at 15:12 EDT , Service support , Brain MRI 12/15/18 10:00 IMPRESSION: Normal unenhanced MRI of the brain and without significant change when compared to 11/17/2014. Electronically Signed: Jevon Ramos MD at 14:50 EDT , Service support , Cervical Spine MRI 12/15/18 12:11 IMPRESSION: 1. Normal unenhanced MR examination of the cervical spine. 2. Small C3 round benign vertebral body hemangioma versus round benign focal fatty infiltration. Sagittal STIR sequence will help clarify if desired. Electronically Signed: Jevon Ramos MD at 14:51 EDT , Service support , Thoracic Spine MRI 12/15/18 12:11 IMPRESSION: Small interosseous hemangiomata within the T7 and T12 vertebral bodies. Otherwise normal unenhanced MRI of the thoracic spine Electronically Signed: Gasper May MD at 15:56 EDT , Service support , Lumbar Spine MRI 12/15/18 12:16 IMPRESSION: No evidence for acute fracture or other significant bony pathology. Tiny central disc protrusion at L5-S1 without spinal stenosis. Electronically Signed: Gasper May MD at 15:59 EDT , Service support , Current Medications Acetaminophen (Tylenol) 650 mg PO Q6H PRN PRN PRN Reason: Mild Pain (1-3)/Temp > 100.7 F Last Admin: 12/13/18 23:15 Dose: 650 mg Documented by: Dextrose (D50w Syringe) 0 gm IV X1 PRN; Protocol PRN Reason: Hypoglycemia Enoxaparin Sodium (Lovenox) 40 mg SC DAILY@1000 JOSE Last Admin: 12/16/18 10:45 Dose: 40 mg Documented by: Glucagon () 1 mg IM .X1 PRN PRN Reason: Hypoglycemia Sodium Chloride () 250 mls @ 15 mls/hr IV .[id number] PRN PRN Reason: SALINE FLUSH Lorazepam (Ativan) 2 mg IV X1 PRN PRN Reason: Seizure Nicotine (Nicoderm Cq (Pbkc)) 14 mg TRANSDERM. DAILY [facility] Last Admin: 12/16/18 10:46 Dose: 14 mg Documented by: Nutritional Formula (Lactose Free) (Ensure Enlive) 120 ml PO 4X/DAY [facility] Last Admin: 12/16/18 10:45 Dose: Not Given Documented by: Ondansetron HCl (Zofran) 4 mg IV Q8H PRN PRN PRN Reason: NAUSEA/VOMITING Pantoprazole Sodium (Protonix) 40 mg PO DAILY [facility] Last Admin: 12/16/18 10:46 Dose: 40 mg Documented by: Senna/Docusate Sodium (Senokot-S, Natacha-Colace) 1 tablet PO BID [facility] Last Admin: 12/16/18 10:46 Dose: Not Given Documented by: Sodium Chloride () 10 - 40 ml IV UD PRN PRN Reason: SALINE FLUSH Medical Necessity - Tobacco Use Smoking Status: Light Smoker (<10/day) Tobacco Use: Cigarettes Assessment/Plan All Active Problems (Last Reviewed 12/16/18 @ 08:29 by Nabeel Moses MD) Hypokalemia (Acute) Hyponatremia (Acute) Hypochloremia (Acute) Metabolic alkalosis (Acute) 1. 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 Was initially thought to be due to hypokalemia and hyponatremia but these have resolved and symptoms of persist. * CT scan showed only mild brain atrophy. * Cervical spine MRI showed small C3 round benign vertebral body hemangioma versus round benign focal fatty infiltration but was otherwise normal. * Thoracic spine MRI shows small intraosseous hemangioma within T7 and T12 vertebral bodies but was otherwise normal. * Lumbar spine MRI showed tiny central disc protrusion at L5-S1 without spinal stenosis and no evidence of fracture. * Allergy on board and think it to be to be due to chronic alcohol use * EMG of lower extremities pending. * PT OT on board. * 2. Hyponatremia, hypokalemia and hypochloremia * This was all thought to be due to contraction alkalosis. * sodium is 134 today, and chloride is still low at 96 * will monitor 3. Chronic alcohol use: says he recently quit. Held mildly elevated liver enzymes which is suggestive of alcoholic liver disease. Stable. 4. Chronic normocytic normochromic anemia: * Hemoglobin is 8.8. * Iron panel showed elevated ferritin with low TIBC indicating of anemia of chronic disease. Iron level was normal. DVT prophylaxis: Lovenox Disposition: Will likely need placement as patient is very would not be able to care for himself at home. Code Visit Inpatient E&M: 63681 Subs Hosp L2
[2018-12-16] MEDS: Acetaminophen 325 MG Tablet 650 MG PO (15:22)
[2018-12-16 15:29] VITALS: BP 125/88; PULSE 107; RESP 18; TEMP 36.7; O2SAT 98
[2018-12-16] MEDS: Senna/Docusate Sodium 1 Tablet PO (20:45)
[2018-12-16 20:49] VITALS: BP 123/88; PULSE 104; RESP 16; TEMP 36.7; O2SAT 98
[2018-12-17 02:50] VITALS: BP 127/92; PULSE 110; RESP 16; TEMP 37.1; O2SAT 95
--- NOTE | 2018-12-17 09:42 | NEURO_ITS ---
NCS and/or EMG Patient Report Ordering Doctor: Angelito Mary DATE OF SERVICE: 12/17/18 This is a nerve conduction study performed on this 38-year-old male with a history of significant alcohol use and weakness in his legs. On examination he has significant atrophy of his muscles in his hands and feet as well as his low er extremities. Nerve conduction study of the right upper and right lower extremity is performed demonstrating mild slowing of conduction velocities diffusely, with severe slowing from the motor responses in the right median nerve, and the right common peroneal motor nerves. Right common peroneal motor nerve is actually not obtainable. The tibial motor conduction velocities also slowed with severely reduced amplitude. The and ulnar responses are mildly prolonged. The H reflex response from the right tibial nerve is suppressed. 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
[2018-12-17 10:00] VITALS: BP 132/98; PULSE 115; RESP 16; TEMP 36.9; O2SAT 99
[2018-12-17] MEDS: Enoxaparin 40 MG/0.4 ML Syringe SC (10:20)
[2018-12-17] MEDS: Pantoprazole Sodium 40 MG Tablet PO (10:20)
--- NOTE | 2018-12-17 10:49 | CASEMGMT ---
Social Work Note SW and physician met with pt. Pt was informed that he needs to call Medicaid number to reactive his medicaid. Pt states I will do it today. SW offered to pt to have this worker call Medicaid number and hand phone to pt to complete application, pt denied. Pt again stated that he will call Medicaid today. SW informed pt that this worker will be back in later this afternoon to ask pt about completing Medicaid application. Pt states understanding. Pt is still requiring SNF. Pt will need to call Medicaid number to reactivate his Medicaid so LOC can be submitted. SW will check back with pt later time today in regards to Medicaid application. Plan: SNF pending LOC Nyla Ashton TRANSPORTATION DEPARTMENT HEAD, MANAGER INVESTMENT
--- NOTE | 2018-12-17 10:57 | PN_ITS ---
Patient Problems: Active and Suspected Problems (Last Reviewed 12/16/18 @ 08:29 by Nabeel Moses MD) Hypokalemia (Acute) Hyponatremia (Acute) Hypochloremia (Acute) Metabolic alkalosis (Acute) Subjective: Patient seen and examined. He has no complaints this morning. She has weakness in his extremities getting better. Review of systems otherwise negative. Labs and vitals reviewed. Patient informed that he needs to call Medicaid to reactivate his Medicaid in order for process for placement to be started. Vitals/I&O's: Vital Signs Temp Pulse Resp BP Pulse Ox 98.5 F 115 H 16 132/98 H 99 12/17/18 10:00 12/17/18 10:00 12/17/18 10:00 12/17/18 10:00 12/17/18 10:00 Oxygen Delivery Method Room Air Weight: 158 lb 1.143 oz Body Mass Index (BMI) 22.6 Intake and Output for Last 24 Hours 12/15/18 12/16/18 12/17/18 23:59 23:59 23:59 Intake Total 1999 340 / 340 Output Total 225 / 225 Balance 1999 115 / 115 General: Alert, Oriented x3, Cooperative, very Lethargic HEENT: Atraumatic, PERRLA, EOMI, Normocephalic Oral: Moist Mucosa Neck: Supple, No JVD, Negative Carotid Bruits Lungs: Clear to auscultation, Normal air movement, No rhonchi, No wheeze, No rales Cardiovascular: Regular rate, Normal S1, Normal S2, No murmurs Abdomen: Bowel Sounds Present, Soft, Non Tender, Non-Distended Extremities: No edema, Capillary Refill Less than 3 Seconds Skin: No rashes, No breakdown Musculoskeletal: No Tenderness to Palpation of Joints or Extremities, Muscle Wasting Neurological: Cranial nerves II-XII grossly intact, - - power 4-/5 in all extremities; has bilateral foot drop. Psych/Mental Status: Normal Affect, Appropriate Microbiology Past 72 Hours 12/16/18 18:00 Stool Stool Occult Blood (KILEY) - Final Occult Blood Positive Current Medications Acetaminophen (Tylenol) 650 mg PO Q6H PRN PRN PRN Reason: Mild Pain (1-3)/Temp > 100.7 F Last Admin: 12/16/18 15:22 Dose: 650 mg Documented by: Dextrose (D50w Syringe) 0 gm IV X1 PRN; Protocol PRN Reason: Hypoglycemia Enoxaparin Sodium (Lovenox) 40 mg SC DAILY@[facility] Last Admin: 12/17/18 10:20 Dose: 40 mg Documented by: Glucagon () 1 mg IM .X1 PRN PRN Reason: Hypoglycemia Sodium Chloride () 250 mls @ 15 mls/hr IV .[id number] PRN PRN Reason: SALINE FLUSH Lorazepam (Ativan) 2 mg IV X1 PRN PRN Reason: Seizure Nicotine (Nicoderm Cq (Pbkc)) 14 mg TRANSDERM. DAILY [facility] Last Admin: 12/17/18 10:20 Dose: 14 mg Documented by: Nutritional Formula (Lactose Free) (Ensure Enlive) 120 ml PO 4X/DAY [facility] Last Admin: 12/17/18 10:20 Dose: 120 ml Documented by: Ondansetron HCl (Zofran) 4 mg IV Q8H PRN PRN PRN Reason: NAUSEA/VOMITING Pantoprazole Sodium (Protonix) 40 mg PO DAILY [facility] Last Admin: 12/17/18 10:20 Dose: 40 mg Documented by: Senna/Docusate Sodium (Senokot-S, Natacha-Colace) 1 tablet PO BID [facility] Last Admin: 12/17/18 10:20 Dose: Not Given Documented by: Sodium Chloride () 10 - 40 ml IV UD PRN PRN Reason: SALINE FLUSH Medical Necessity - Tobacco Use Smoking Status: Light Smoker (<10/day) Tobacco Use: Cigarettes Assessment/Plan All Active Problems (Last Reviewed 12/16/18 @ 08:29 by Nabeel Moses MD) Hypokalemia (Acute) Hyponatremia (Acute) Hypochloremia (Acute) Metabolic alkalosis (Acute) 1. 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 Power now 4-/5 in all extremities * EMG showed evidence of polyneuropathy likely due to alcohol abuase * CT brain was negative, and Cervical, Lumbar and thoracic MRI were negative for any acute pathology * neurology on board * PT/OT on board * 2. Hyponatremia, hypokalemia and hypochloremia * This was all thought to be due to contraction alkalosis. * resolved. * 3. Chronic alcohol use: says he has quit.; Counseled to continue abstaining. To provide community resources for help with alcohol addiction. 4. Acute normocytic normochromic anemia: * Hemoglobin is 8.8. * Iron panel showed elevated ferritin with low TIBC indicating of anemia of chronic disease. Iron level was normal. * stool for occult blood is positive. * is asymptomatic, may be due to gastritis from anemia] * will put on PPI and consult general surgery. DVT prophylaxis: SCDs; stop lovenox o/a of positive occult blood in stool. Disposition: Awaiting placement. Patient is to call Medicaid to activate his Medicaid number so the process for placement can be started. Code Visit Inpatient E&M: 41405 Subs Hosp L3
--- NOTE | 2018-12-17 11:17 | PCM.PN.REN ---
Patient Problems: Active and Suspected Problems (Last Reviewed 12/16/18 @ 08:29 by Nabeel Moses MD) Hypokalemia (Acute) Hyponatremia (Acute) Hypochloremia (Acute) Metabolic alkalosis (Acute) Subjective: no new events - Physical Exam General: Alert, Oriented x3, Cooperative HEENT: Atraumatic, PERRLA, EOMI, Normocephalic Neck: Supple, No JVD, Negative Carotid Bruits Lungs: Clear to auscultation, Normal air movement Cardiovascular: Regular rate, No murmurs Abdomen: Bowel Sounds Present, Soft, Non Tender Extremities: No edema, Capillary Refill Less than 3 Seconds Skin: No rashes, No breakdown Musculoskeletal: No Tenderness to Palpation of Joints or Extremities Neurological: Cranial nerves II-XII grossly intact Psych/Mental Status: Normal Affect, Appropriate Vital Signs Temp Pulse Resp BP Pulse Ox 98.5 F 115 H 16 132/98 H 99 12/17/18 10:00 12/17/18 10:00 12/17/18 10:00 12/17/18 10:00 12/17/18 10:00 Oxygen Delivery Method Room Air Weight: 71.7 kg Body Mass Index (BMI) 22.6 Intake and Output for Last 24 Hours 12/15/18 12/16/18 12/17/18 23:59 23:59 23:59 Intake Total 1999 340 / 340 Output Total 225 / 225 Balance 1999 115 / 115 Microbiology Past 72 Hours 12/16/18 18:00 Stool Occult Blood (KILEY) - Final Stool Occult Blood Positive Medical Necessity - Tobacco Use Smoking Status: Light Smoker (<10/day) Tobacco Use: Cigarettes Assessment/Plan All Active Problems (Last Reviewed 12/16/18 @ 08:29 by Nabeel Moses MD) Hypokalemia (Acute) Hyponatremia (Acute) Hypochloremia (Acute) Metabolic alkalosis (Acute) 1-severe hypokalemia with paralysis. resolved with replacement Initially presenting potassium level was 1.7. Now normal. Random urine potassium is negligible. Unlikely urinary losses. Most likely poor oral intake related to alcohol abuse. 2-hyponatremia with hypovolemia. Initial presenting level of sodium was 120. Na level improved with IVF. Continue to monitor sodium level. today at 134 3-metabolic alkalosis. Most probably related to volume contraction. better with IVF will sign off
[2018-12-17 11:55] LABS: Absolute Lymphocyte Count 2.01 X10^3/ul (0.83-4.51); Absolute Neutrophil Count 8.5 X10^3/uL (2.0-7.7); Basophil# 0.02 X10^3/uL; Basophil% 0.2 % (0-1); Eosinophil# 0.03 X10^3/uL; Eosinophils% 0.3 % (0-5); Hematocrit 31.7 % (40-54); Hemoglobin 10.6 g/dl (13.0-16.5); Lymphocyte # 2.01 X10^3/ul (4.0); Lymphocyte % 18.1 % (19-41); Mean Corp Hgb Conc 33.4 g/gl (32-36); Mean Corpuscular Hgb 32.6 pg (27.0-32.0); Mean Corpuscular Volume 97.5 fL (80-94); Mean Platelet Vol. 10.7 fl (6.2-12.0); Monocyte# 0.58 X10^3/uL; Monocyte% 5.2 % (0-10); Neutrophil # 8.45 X10^3/uL (2.7-7.7); Neutrophil % 75.8 % (47-70); Platelet Count 245 K/mm3 (150-450); RBC Distribution Width CV 17.4 % (11.6-14.6); RBC Distribution Width SD 61.9 fl (35.1-43.9); Red Blood Count 3.25 M/mm3 (4.6-6.2); White Blood Count 11.1 K/mm3 (4.4-11.0)
[2018-12-17 11:57] LABS: POSITIVE COUNT NO; POSITIVE DIFFERENTIAL NO; POSITIVE MORPHOLOGY NO
--- NOTE | 2018-12-17 13:40 | PCM.CONS.GEN ---
Problem List (1) Anemia Status: Acute Qualifiers: Anemia type: unspecified type Qualified Code(s): D64.9 - Anemia, unspecified (2) Heme positive stool Status: Acute Reason for Consult Date of Consultation: 12/17/18 History of Present Illness: The patient is a 38-year-old male, with a history as outlined below, who presented to the emergency department on the morning of December 12 with complaints of generalized weakness and inability to ambulate, which had reportedly been progressive over the last 6 weeks. The patient has a known long-standing history of alcohol dependency. The patient reported that he drank a bottle of schnapps per day. His last drink was approximately 24 to 48 hours ago. He stated that his issues initially began with an inability to ambulate due to profound lower extremity weakness. In addition to the aforementioned, the patient reports little p.o. intake over the specified time period. On presentation to the emergency department, the patient was noted to be afebrile, tachycardic but hemodynamically stable. He was initially documented to be saturating 100% on room air. Initial laboratory evaluation revealed a mildly elevated white blood cell count along with normocytic anemia. Chemistry profile was notable for a sodium of 120, potassium of 1.7, chloride of 73, bicarbonate of 34 and creatinine of 0.98. Troponin was negative. Toxicology screen was negative. Alcohol level was negative. CT head revealed brain atrophy concerning for sequelae of chronic alcohol abuse. The patient was provided with supplemental IV fluid hydration and started on potassium replacement. He was then admitted to the medical intensive care unit for ongoing management. Since being in the hospital he has developed some anemia and is noted to be heme positive in stool. The patient however has not noticed any black tarry stools. He has been tolerating a diet. He is not complaining of any abdominal pain.] Past Medical History Medical History: Medical History (Last Reviewed 12/16/18 @ 08:29 by Nabeel Moses MD) Denies previous medical history Allergies bee venom protein (honey bee) Allergy (Verified 12/11/18 23:48) Anaphylaxis Penicillins [PCN] Adverse Reaction (Verified 12/11/18 23:48) Upset Stomach Home Medications: Ambulatory Orders Medication Instructions Recorded NK 12/11/18 Surgical History: no surgical history Lives: Roommate Smoking Status: Light Smoker (<10/day) Tobacco Use: Cigarettes Alcohol: Heavy - last drink by report 2 weeks ago, reports one shot of schnapps - *Family History Maternal History Items: Cancer, Diabetes, Heart Disease, - - Thyroid Paternal History Items: Heart Disease Review of Systems Constitutional: Denies: Chills, Fever, Weight Change Respiratory: Denies: Cough, Hemoptysis, Shortness of breath at rest, Shortness of breath upon exertion, Wheezing Gastrointestinal: Denies: Abdominal Pain, Constipation, Diarrhea, Hematemesis, Nausea, Melena, Vomiting Genitourinary: Denies: Dysuria, Frequency, Hematuria, Urgency Patient Problems: Active and Suspected Problems (Last Reviewed 12/16/18 @ 08:29 by Nabeel Moses MD) Hypokalemia (Acute) Hyponatremia (Acute) Hypochloremia (Acute) Metabolic alkalosis (Acute) Anemia (Acute) Heme positive stool (Acute) - Physical Exam General: Alert, Oriented x3 Lungs: Clear to auscultation Cardiovascular: Regular rate, Regular Rhythm, No murmurs Abdomen: Bowel Sounds Present, Soft, Non Tender, Non-Distended Vital Signs Temp Pulse Resp BP Pulse Ox 98.5 F 115 H 16 132/98 H 99 12/17/18 10:00 12/17/18 10:00 12/17/18 10:00 12/17/18 10:00 12/17/18 10:00 Oxygen Delivery Method Room Air Weight: 158 lb 1.143 oz Body Mass Index (BMI) 22.6 Intake and Output for Last 24 Hours 12/15/18 12/16/18 12/17/18 23:59 23:59 23:59 Intake Total 1999 340 / 340 Output Total 225 / 225 Balance 1999 115 / 115 Microbiology Past 72 Hours 12/16/18 18:00 Stool Occult Blood (KILEY) - Final Stool Occult Blood Positive Laboratory Tests Past 24 Hrs 12/17/18 11:15 WBC 11.1 H RBC 3.25 L Hgb 10.6 L Hct 31.7 L MCV 97.5 H MCH 32.6 H MCHC 33.4 RDW 17.4 H RDW Differential 61.9 H Plt Count 245 MPV 10.7 Immature Gran % (Auto) 0.400 Neut % (Auto) 75.8 H Lymph % (Auto) 18.1 L Zavala % (Auto) 5.2 Eos % (Auto) 0.3 Baso % (Auto) 0.2 Absolute Neuts (auto) 8.5 H Absolute Lymphs (auto) 2.01 Total Counted Not Reportable Assessment/Plan All Active Problems (Last Reviewed 12/16/18 @ 08:29 by Nabeel Moses MD) Hypokalemia (Acute) Hyponatremia (Acute) Hypochloremia (Acute) Metabolic alkalosis (Acute) Anemia (Acute) Heme positive stool (Acute) At this point since he is not actively bleeding and his hemoglobin now is 10 I think it is safe for us to work him up as an outpatient. I will see him in the office and at that time get him scheduled for both an upper and lower endoscopy.
--- NOTE | 2018-12-17 14:09 | CASEMGMT ---
Social Work: Met with patient in room to discuss Medicaid application. Patient states that his parents are working on the application. Patient giving this SW permission to call parents to discuss Medicaid application. TC to patient's mother, Kandace Drummond. Patient's mother states that she is currently working on the application but has a few questions for patient. This SW took portable phone into room and called patient's mother while in the room. Patient answered questions needed for medicaid application and patient's mother states that she will submit the application online today. Spoke to patient and mother regarding choices for SNF placement. Patient and mother choosing [facility] as first choice and [facility] as second choice. TC to to Shae at [facility]. Shae requesting referral be faxed. Referral faxed. PLAN: Patient to be discharged to SNF when medically ready and once LOC is obtained. SW to follow to assist as needed with D/c planning. JEWEL Estrada
[2018-12-17 16:00] VITALS: BP 128/93; PULSE 116; RESP 18; TEMP 37; O2SAT 99
[2018-12-17] MEDS: Senna/Docusate Sodium 1 Tablet PO (21:22)
[2018-12-17] MEDS: Acetaminophen 325 MG Tablet 650 MG PO (21:22)
[2018-12-17 21:28] VITALS: BP 131/88; PULSE 115; RESP 16; TEMP 36.9; O2SAT 97
[2018-12-18 03:18] VITALS: BP 129/95; PULSE 115; RESP 16; TEMP 37.4; O2SAT 98
--- NOTE | 2018-12-18 10:06 | TREXTCAR_ITS ---
- Diet 12/12/18 02:04 Diet: Regular Diet Food consistency:: Regular Liquid Consistency:: Regular/Thin Is pt able to select menu?: No - Routine Orders/Code Status Enema Type: Fleetz Enema Frequency: Daily PRN Suppository Type: Dulcolax 10mg Suppository Frequency: Daily PRN O2 Frequency: PRN Keep PO Greater than or Equal to (%): 90 Code Status: Full Code - Therapies Weight Bearing: Weight bearing as tolerated Physical Therapy: Eval and Treat Occupational Therapy: Eval and Treat - Allergies/Procedures Done in Hospital Allergies/Adverse Reactions: Allergies bee venom protein (honey bee) Allergy (Verified 12/11/18 23:48) Anaphylaxis Penicillins [PCN] Adverse Reaction (Verified 12/11/18 23:48) Upset Stomach Procedures: None - Type of Care/Length of Stay Estimated LOS: Convalescent Care Less Than 30 days Type of Care Needed: Skilled Rehab Potential: Fair Prognosis: Good - Additional Orders/Day of Discharge Day of Discharge: 12/18/18 - Dietary and Speech Recommendations Dietitian Recommendations/Changes: Continue regular diet. Will continue Ensure Enlive 120 mL 4x/day for additional calories/protein if consumed. Rec re- weighing pt. - Follow Up Care Primary Care Physician: Leandro Garza MD [Primary Care Provider] - Please follow up with your Primary Care Physician in: one week Please Follow Up With: Nabeel Moses MD When: one week
--- NOTE | 2018-12-18 10:51 | CASEMGMT ---
Addendum entered by Nyla Ashton 12/18/18 14:24: SKYE did speak with Shae at [facility] and updated her that pt's medicaid is pending so [facility] is unable to accept pt. Addendum entered by Nyla Ashton 12/18/18 13:14: SKYE placed a call to Suzanne at [facility] [place]. Per Suzanne they technically don't accept pt's with pending medicaid number but asked to be sent facesheet and she will call [facility] to inquire about the pending medicaid number. SKYE faxed facesheet to [facility]. SW waiting for call back. Addendum entered by Nyla Ashton 12/18/18 13:05: SKYE received message from Griselda Rich at [facility] stating pt's pending Medicaid number is [id number]. SKYE received message from Shae at [facility] stating if pt's medicaid is pending they are unable to accept pt if pt's medicaid is active they are able to accept. Since pt has pending medicaid number, [facility] is unable to accept. Per previous notes, pt's second choice for SNF is [facility]. SW to fax referral to [facility]. Original Note: Social Work Note SW placed a call to Shae at [facility], left message, asking if she reviewed referral and if she is able to accept pt. SKYE placed a call to Griselda Rich at [facility] and left her a message asking about pt's medicaid application and for medicaid number. SW to continue to follow. Plan: SNF pending acceptance and LOC Nyla Ashton UMBRELLA REPAIRER, VENETIAN BLIND ASSEMBLER
[2018-12-18 11:00] VITALS: BP 130/96; PULSE 115; RESP 16; TEMP 36.7; O2SAT 98
[2018-12-18] MEDS: Pantoprazole Sodium 40 MG Tablet PO (11:17)
[2018-12-18] MEDS: Senna/Docusate Sodium 1 Tablet PO ×2 (11:17→22:33)
--- NOTE | 2018-12-18 14:03 | PCM.PN.REN ---
Patient Problems: Active and Suspected Problems (Last Reviewed 12/16/18 @ 08:29 by Nabeel Moses MD) Hypokalemia (Acute) Hyponatremia (Acute) Hypochloremia (Acute) Metabolic alkalosis (Acute) Anemia (Acute) Heme positive stool (Acute) Subjective: Weakness is improving but still cannot walk by himself No nausea No vomiting. No SOB - Physical Exam General: Alert, Oriented x3 HEENT: Atraumatic Oral: Moist Mucosa Neck: Supple, No JVD Lungs: Clear to auscultation, Normal air movement, No rhonchi Cardiovascular: Regular rate, Regular Rhythm, Normal S1 Abdomen: Bowel Sounds Present, Soft, Non Tender, Non-Distended Extremities: No clubbing, No cyanosis, No edema Skin: No breakdown Lymphatic: No Cervical, Supraclavicular, or Inguinal Adenopathy Psych/Mental Status: Appropriate Vital Signs Temp Pulse Resp BP Pulse Ox 98.1 F 115 H 16 130/96 H 98 12/18/18 11:00 12/18/18 11:00 12/18/18 11:00 12/18/18 11:00 12/18/18 11:00 Oxygen Delivery Method Room Air Weight: 71.7 kg Body Mass Index (BMI) 22.6 Intake and Output for Last 24 Hours 12/16/18 12/17/18 12/18/18 23:59 23:59 23:59 Intake Total 340 / 340 Output Total 225 / 225 475 / 475 Balance 115 / 115 -475 / -475 Microbiology Past 72 Hours 12/16/18 18:00 Stool Occult Blood (KILEY) - Final Stool Occult Blood Positive Medical Necessity - Tobacco Use Smoking Status: Light Smoker (<10/day) Tobacco Use: Cigarettes Assessment/Plan All Active Problems (Last Reviewed 12/16/18 @ 08:29 by Nabeel Moses MD) Hypokalemia (Acute) Hyponatremia (Acute) Hypochloremia (Acute) Metabolic alkalosis (Acute) Anemia (Acute) Heme positive stool (Acute) 1-severe hypokalemia with paralysis.most probably from poor K oral intake. potassium level improved to normal with replacement continue PT 2-hyponatremia with hypovolemia. Initial presenting level of sodium was 120. Na level improved with IVF. Na 134 this morning 3-metabolic alkalosis. Most probably related to volume contraction. resolved with IVF. HCO3 level is 26 Renal team will continue to follow. Please call if any question at [phone]
--- NOTE | 2018-12-18 14:37 | PN_ITS ---
Patient Problems: Active and Suspected Problems (Last Reviewed 12/16/18 @ 08:29 by Nabeel Moses MD) Hypokalemia (Acute) Hyponatremia (Acute) Hypochloremia (Acute) Metabolic alkalosis (Acute) Anemia (Acute) Heme positive stool (Acute) Subjective: Patient seen and examined. He has no complaints. Is able to move all limbs now and states that as he eats more, he feels better and is able to move better. He is awaiting placement. Vitals/I&O's: Vital Signs Temp Pulse Resp BP Pulse Ox 98.1 F 115 H 16 130/96 H 98 12/18/18 11:00 12/18/18 11:00 12/18/18 11:00 12/18/18 11:00 12/18/18 11:00 Oxygen Delivery Method Room Air Weight: 158 lb 1.143 oz Body Mass Index (BMI) 22.6 Intake and Output for Last 24 Hours 12/16/18 12/17/18 12/18/18 23:59 23:59 23:59 Intake Total 340 / 340 Output Total 225 / 225 475 / 475 Balance 115 / 115 -475 / -475 General: Alert, Oriented x3, Cooperative, more alert today HEENT: Atraumatic, PERRLA, EOMI, Normocephalic Oral: Moist Mucosa Neck: Supple, No JVD, Negative Carotid Bruits Lungs: Clear to auscultation, Normal air movement, No rhonchi, No wheeze, No rales Cardiovascular: Regular rate, Normal S1, Normal S2, No murmurs Abdomen: Bowel Sounds Present, Soft, Non Tender, Non-Distended Extremities: No edema, Capillary Refill Less than 3 Seconds Skin: No rashes, No breakdown Musculoskeletal: No Tenderness to Palpation of Joints or Extremities, Muscle Wasting Neurological: Cranial nerves II-XII grossly intact, - - power 4-/5 in all extremities; moves all limbs spontaneously. has bilateral foot drop. Psych/Mental Status: Normal Affect, Appropriate Microbiology Past 72 Hours 12/16/18 18:00 Stool Stool Occult Blood (KILEY) - Final Occult Blood Positive Current Medications Acetaminophen (Tylenol) 650 mg PO Q6H PRN PRN PRN Reason: Mild Pain (1-3)/Temp > 100.7 F Last Admin: 12/17/18 21:22 Dose: 650 mg Documented by: Dextrose (D50w Syringe) 0 gm IV X1 PRN; Protocol PRN Reason: Hypoglycemia Glucagon () 1 mg IM .X1 PRN PRN Reason: Hypoglycemia Sodium Chloride () 250 mls @ 15 mls/hr IV .[id number] PRN PRN Reason: SALINE FLUSH Lorazepam (Ativan) 2 mg IV X1 PRN PRN Reason: Seizure Nicotine (Nicoderm Cq (Pbkc)) 14 mg TRANSDERM. DAILY [facility] Last Admin: 12/18/18 11:17 Dose: 14 mg Documented by: Nutritional Formula (Lactose Free) (Ensure Enlive) 120 ml PO 4X/DAY [facility] Last Admin: 12/18/18 11:23 Dose: 120 ml Documented by: Ondansetron HCl (Zofran) 4 mg IV Q8H PRN PRN PRN Reason: NAUSEA/VOMITING Pantoprazole Sodium (Protonix) 40 mg PO DAILY [facility] Last Admin: 12/18/18 11:17 Dose: 40 mg Documented by: Senna/Docusate Sodium (Senokot-S, Natacha-Colace) 1 tablet PO BID [facility] Last Admin: 12/18/18 11:17 Dose: 1 tablet Documented by: Sodium Chloride () 10 - 40 ml IV UD PRN PRN Reason: SALINE FLUSH Medical Necessity - Tobacco Use Smoking Status: Light Smoker (<10/day) Tobacco Use: Cigarettes Assessment/Plan All Active Problems (Last Reviewed 12/16/18 @ 08:29 by Nabeel Moses MD) Hypokalemia (Acute) Hyponatremia (Acute) Hypochloremia (Acute) Metabolic alkalosis (Acute) Anemia (Acute) Heme positive stool (Acute) 1. 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 Hyponatremia, hypokalemia and hypochloremia * resolved. * 3. Chronic alcohol use: says he has quit.; Counseled to continue abstaining. To provide community resources for help with alcohol addiction. 4. Acute normocytic normochromic anemia: * Hb came up to 10.6 * Iron panel showed elevated ferritin with low TIBC indicating of anemia of chronic disease. Iron level was normal. * stool for occult blood is positive. general surgery reviewed patient; since he is stable, will follow up with general surgery on outpatient basis for EGD and colonoscopy to be arranged. * on pantoprazole * i DVT prophylaxis: SCDs; stop lovenox o/a of positive occult blood in stool. Disposition: Awaiting placement. Code Visit Inpatient E&M: 42161 Subs Hosp L2
[2018-12-18 15:00] VITALS: BP 133/97; PULSE 112; RESP 16; TEMP 36.4; O2SAT 97
--- NOTE | 2018-12-18 15:17 | CASEMGMT ---
Social Work Note SW placed a call to Suzanne at [facility] [place] and left message asking if she has had the chance to call [facility] in regards to pt's pending medicaid number. SKYE waiting for call back. Nyla Ashton FACULTY MEMBER, NURSING PROGRAM COORDINATOR
[2018-12-18 19:46] VITALS: BP 129/92; PULSE 120; RESP 18; TEMP 36.9; O2SAT 97
[2018-12-19 01:26] VITALS: BP 129/96; PULSE 127; RESP 16; TEMP 37; O2SAT 96
[2018-12-19] MEDS: Acetaminophen 325 MG Tablet 650 MG PO (01:36)
[2018-12-19 07:49] VITALS: BP 137/101; PULSE 103; RESP 16; TEMP 36.4; O2SAT 99
--- NOTE | 2018-12-19 08:38 | CASEMGMT ---
Addendum entered by Mell Maki 12/19/18 11:53: SKYE called Suzanne again at [facility], she states she is still waiting to hear back for [facility]. SW advised her to call Griselda Rich, Suzanne will do so. SKYE will continue to follow. JEWEL Simpson Original Note: SKYE called Suzanne at [facility] and left a message regarding pt's potential admission. LIT SimpsonS
[2018-12-19] MEDS: Pantoprazole Sodium 40 MG Tablet PO (09:25)
[2018-12-19] MEDS: Senna/Docusate Sodium 1 Tablet PO (09:25)
--- NOTE | 2018-12-19 11:14 | PCM.PN.REN ---
Patient Problems: Active and Suspected Problems (Last Reviewed 12/16/18 @ 08:29 by Nabeel Moses MD) Hypokalemia (Acute) Hyponatremia (Acute) Hypochloremia (Acute) Metabolic alkalosis (Acute) Anemia (Acute) Heme positive stool (Acute) Subjective: Pt said his weakness is improving. No nausea No vomiting. No SOB - Physical Exam General: Alert, Oriented x3 HEENT: Atraumatic Oral: Moist Mucosa Neck: Supple, No JVD Lungs: Clear to auscultation, Normal air movement, No rhonchi, No wheeze Cardiovascular: Regular rate, Regular Rhythm, Normal S1, Normal S2 Abdomen: Bowel Sounds Present, Soft, Non Tender, Non-Distended Extremities: No clubbing, No cyanosis, No edema Musculoskeletal: Muscle Wasting Lymphatic: No Cervical, Supraclavicular, or Inguinal Adenopathy Neurological: Cranial nerves II-XII grossly intact Psych/Mental Status: Appropriate Vital Signs Temp Pulse Resp BP Pulse Ox 97.5 F L 103 H 16 137/101 H 99 12/19/18 07:49 12/19/18 07:49 12/19/18 07:49 12/19/18 07:49 12/19/18 07:49 Oxygen Delivery Method Room Air Weight: 71.7 kg Body Mass Index (BMI) 22.6 Intake and Output for Last 24 Hours 12/17/18 12/18/18 12/19/18 23:59 23:59 23:59 Intake Total 1085 / 1085 150 / 150 Output Total 650 / 650 150 / 150 Balance 435 / 435 0 / 0 Microbiology Past 72 Hours 12/16/18 18:00 Stool Occult Blood (KILEY) - Final Stool Occult Blood Positive Medical Necessity - Tobacco Use Smoking Status: Light Smoker (<10/day) Tobacco Use: Cigarettes Assessment/Plan All Active Problems (Last Reviewed 12/16/18 @ 08:29 by Nabeel Moses MD) Hypokalemia (Acute) Hyponatremia (Acute) Hypochloremia (Acute) Metabolic alkalosis (Acute) Anemia (Acute) Heme positive stool (Acute) 1-severe hypokalemia with paralysis.most probably from poor K oral intake. potassium level improved to normal with replacement continue PT 2-hyponatremia with hypovolemia. Initial presenting level of sodium was 120. Na level improved with IVF. last Na level is 134 on 7/8 Check renal panel if patient remains inpatient tomorrow 3-Metabolic alkalosis. Most probably related to volume contraction. resolved with IVF. last HCO3 level is 26 Renal team will continue to follow. Please call if any question at [phone]
--- NOTE | 2018-12-19 12:14 | CASEMGMT ---
Addendum entered by Mell Maki 12/19/18 14:54: Pt's father is here visiting, asked to speak w/SW. He was able to access pt's pay stubs and was trying to call [facility] to speak w/them and get them this information, but nobody will answer the phone. He is going to go down to [facility] and speak w/them in person. Pt's father asked if the financial dept here also needs copies of the pay stubs and if so how many. SW called financial assistance, left a message to call this SKYE back today or Nyla tomorrow with this information. SW let pt's Dad and pt know waiting for a call back and will let him know once SW hears back. SW also asked pt's Dad if he and pt's mother have come up with any additional nursing homes to send referrals. Pt's father states he still needs to speak w/pt's mother, and will let this SW know. He is going to [facility] now, and is to call SKYE today or if he does not have any places today to send referral will call [facility] [place] tomorrow. SW will continue to follow. ZAYDA Simpson-Елена Addendum entered by Mell Maki 12/19/18 13:11: SW spoke w/pt's father, he called back. SW let him know that [place] and [place] cannot take pt due to insurance. SW explained pt had said to ask his mother for other options. Pt's father states he will call pt's mother and let SW know. SW reviewed the other nursing homes in [facility] w/pt's father, and asked him to let SW know a couple of choices. Pt's father asked what else needs follow up. SW explained that someone will need to assist pt with getting his Medicaid active, and that they may need financial information--as [facility] had said [facility] could not verify pt's insurance. Pt's father states that the pt is not able to get into the [employer] system to get financial information from when he worked there. Pt's father said maybe pt needs to call to get a printout and see if he can pick it up for pt. Or, he asked if SW can call. SKYE explained that [facility] will likely not give SW any financial information, and that perhaps he can assist pt in calling to get the information. Pt's father states understanding. He states will call pt's mother back and will call this SW back with more group home choices. SW will continue to follow. JEWEL Simpson Original Note: SW spoke w/[facility], they cannot take pt. SW spoke w/pt, explained that [facility] and [facility] cannot take him due to his pending insurance. SW inquired where else he would like to consider, or if SW should call his mother. Pt states to call his mother. SW called pt's mother, message left to call this SW back. SW will continue to follow. JEWEL Simpson
[2018-12-19 14:21] VITALS: BP 134/100; PULSE 116; RESP 16; TEMP 37; O2SAT 96
--- NOTE | 2018-12-19 15:22 | CASEMGMT ---
Pt's father called, he states they would like referral sent to 1. [facility] or 2. [facility]. SW called [facility], they have no male beds and don't normally take pending Medicaid. SW called [facility], spoke w/the professional system administrator Jameel Henderson, he states they will consider pt, they do take pts with pending Medicaid. SW faxed referral. SW will continue to follow. JEWEL Simpson
--- NOTE | 2018-12-19 15:57 | PN_ITS ---
Patient Problems: Active and Suspected Problems (Last Reviewed 12/16/18 @ 08:29 by Nabeel Moses MD) Hypokalemia (Acute) Hyponatremia (Acute) Hypochloremia (Acute) Metabolic alkalosis (Acute) Anemia (Acute) Heme positive stool (Acute) Subjective: Patient seen and examined. He has no complaints. Review of symptoms otherwise negative. He is awaiting placement. Vitals/I&O's: Vital Signs Temp Pulse Resp BP Pulse Ox 98.6 F 116 H 16 134/100 H 96 12/19/18 14:21 12/19/18 14:21 12/19/18 14:21 12/19/18 14:21 12/19/18 14:21 Oxygen Delivery Method Room Air Weight: 158 lb 1.143 oz Body Mass Index (BMI) 22.6 Intake and Output for Last 24 Hours 12/17/18 12/18/18 12/19/18 23:59 23:59 23:59 Intake Total 1085 / 1085 800 / 800 Output Total 650 / 650 150 / 150 Balance 435 / 435 650 / 650 General: Alert, Oriented x3, Cooperative, HEENT: Atraumatic, PERRLA, EOMI, Normocephalic Oral: Moist Mucosa Neck: Supple, No JVD, Negative Carotid Bruits Lungs: Clear to auscultation, Normal air movement, No rhonchi, No wheeze, No rales Cardiovascular: Regular rate, Normal S1, Normal S2, No murmurs Abdomen: Bowel Sounds Present, Soft, Non Tender, Non-Distended Extremities: No edema, Capillary Refill Less than 3 Seconds Skin: No rashes, No breakdown Musculoskeletal: No Tenderness to Palpation of Joints or Extremities, Muscle Wasting Neurological: Cranial nerves II-XII grossly intact, - - power 4-/5 in all extremities; moves all limbs spontaneously. has bilateral foot drop. Psych/Mental Status: Normal Affect, Appropriate Microbiology Past 72 Hours 12/16/18 18:00 Stool Stool Occult Blood (KILEY) - Final Occult Blood Positive Current Medications Acetaminophen (Tylenol) 650 mg PO Q6H PRN PRN PRN Reason: Mild Pain (1-3)/Temp > 100.7 F Last Admin: 12/19/18 01:36 Dose: 650 mg Documented by: Dextrose (D50w Syringe) 0 gm IV X1 PRN; Protocol PRN Reason: Hypoglycemia Glucagon () 1 mg IM .X1 PRN PRN Reason: Hypoglycemia Sodium Chloride () 250 mls @ 15 mls/hr IV .[id number] PRN PRN Reason: SALINE FLUSH Lorazepam (Ativan) 2 mg IV X1 PRN PRN Reason: Seizure Nicotine (Nicoderm Cq (Pbkc)) 14 mg TRANSDERM. DAILY [facility] Last Admin: 12/19/18 09:25 Dose: 14 mg Documented by: Nutritional Formula (Lactose Free) (Ensure Enlive) 120 ml PO 4X/DAY [facility] Last Admin: 12/19/18 14:23 Dose: 120 ml Documented by: Ondansetron HCl (Zofran) 4 mg IV Q8H PRN PRN PRN Reason: NAUSEA/VOMITING Pantoprazole Sodium (Protonix) 40 mg PO DAILY [facility] Last Admin: 12/19/18 09:25 Dose: 40 mg Documented by: Senna/Docusate Sodium (Senokot-S, Natacha-Colace) 1 tablet PO BID [facility] Last Admin: 12/19/18 15:21 Dose: Not Given Documented by: Sodium Chloride () 10 - 40 ml IV UD PRN PRN Reason: SALINE FLUSH Medical Necessity - Tobacco Use Smoking Status: Light Smoker (<10/day) Tobacco Use: Cigarettes Assessment/Plan All Active Problems (Last Reviewed 12/16/18 @ 08:29 by Nabeel Moses MD) Hypokalemia (Acute) Hyponatremia (Acute) Hypochloremia (Acute) Metabolic alkalosis (Acute) Anemia (Acute) Heme positive stool (Acute) 1. 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 Hyponatremia, hypokalemia and hypochloremia * resolved. * 3. SInus tachyardia: * HR in 110s. Patient asymptomatic. will get EKG to assess. * Will monitor. consider starting low dose metoprolol. 4. Chronic alcohol use: States he has quit now. Counseled on continuous abstinence. 5. Acute normocytic normochromic anemia: * Hb 8-10 * Iron panel showed elevated ferritin with low TIBC indicating of anemia of chronic disease. Iron level was normal. * stool for occult blood is positive. general surgery reviewed patient; since he is stable, will follow up with general surgery on outpatient basis for EGD and colonoscopy to be arranged. * on pantoprazole * i DVT prophylaxis: SCDs; Disposition: Awaiting placement. Code Visit Inpatient E&M: 99913 Subs Hosp L2
--- NOTE | 2018-12-19 16:00 | EKG12_ITS ---
Test Reason : CHEST PAIN ADMISSION Blood Pressure : / mmHG Vent. Rate : 119 BPM Atrial Rate : 119 BPM P-R Int : 150 ms QRS Dur : 080 ms QT Int : 336 ms P-R-T Axes : 049 026 112 degrees QTc Int : 472 ms Sinus tachycardia T wave abnormality, consider anterior ischemia Consider Precordial Lead Misplacement (V1-V2) Recommend Repeat ECG Abnormal ECG Confirmed by OMAR KENDALL, MICHELLE ([id number]), legal editor JOSE LATHAM ([id number]) on 12/26/2018 10:39:39 AM Referred By: RAND Confirmed By:MICHELLE NELSON MD
[2018-12-19 19:59] VITALS: BP 134/97; PULSE 115; RESP 16; TEMP 37; O2SAT 98
[2018-12-20 02:12] VITALS: BP 136/100; PULSE 120; RESP 16; TEMP 36.9; O2SAT 100
[2018-12-20] MEDS: Pantoprazole Sodium 40 MG Tablet PO (07:40)
[2018-12-20] MEDS: Senna/Docusate Sodium 1 Tablet PO ×2 (07:40→21:26)
[2018-12-20 07:44] VITALS: BP 135/91; PULSE 111; RESP 16; TEMP 36.4; O2SAT 96
[2018-12-20 07:44] LABS: Albumin, Serum 2.7 g/dL (3.2-5.0); BUN 13 mg/dL (7-18); BUN/Creat Ratio 25.2 RATIO (10-20); Calcium,Total 9.6 mg/dL (8.5-10.1); Chloride 102 mmol/L (98-107); Creatinine, Serum 0.52 mg/dL (0.70-1.30); EST Glomerular Filtration Rate 193 mL/min (>60); Est Glom Filt Rate - Afr Amer 233 mL/min (>60); Estimated Creatinine Clearance 196.39 ml/min; Glucose 97 mg/dL (74-106); Phosphorus 6.2 mg/dL (2.5-4.9); Potassium 4.3 mmol/L (3.5-5.1); Sodium Level 137 mmol/L (136-145)
[2018-12-20] MEDS: Acetaminophen 325 MG Tablet 650 MG PO (07:54)
--- NOTE | 2018-12-20 09:55 | CASEMGMT ---
Social Work Note SW placed a call to Lenin Henderson, desktop administrator at [facility] and left message asking about referral and if [facility] is able to accept pt. SW waiting for call back. Plan: SNF pending acceptance and LOC Nyla Ashton SHALLOT PACKER, BLOW MACHINE TENDER [employer]ARCH SPRAYING
[2018-12-20 14:00] VITALS: BP 132/95; PULSE 124; RESP 16; TEMP 36.6; O2SAT 97
--- NOTE | 2018-12-20 14:30 | CASEMGMT ---
Social Work: TC to [facility]. Spoke with Patrica Ron, Operations Welder. Patrica will discuss referral with Lenin, security administrator and call this SW back. JEWEL Estrada
--- NOTE | 2018-12-20 15:02 | PCM.PN.REN ---
Patient Problems: Active and Suspected Problems (Last Reviewed 12/16/18 @ 08:29 by Nabeel Moses MD) Hypokalemia (Acute) Hyponatremia (Acute) Hypochloremia (Acute) Metabolic alkalosis (Acute) Anemia (Acute) Heme positive stool (Acute) Subjective: Pt is doing Ok. denied nausea No vomiting. No SOB - Physical Exam General: Alert, Oriented x3 HEENT: Atraumatic Oral: Moist Mucosa Neck: Supple, No JVD Lungs: Clear to auscultation, Normal air movement, No rhonchi Cardiovascular: Regular rate, Regular Rhythm, Normal S1 Abdomen: Bowel Sounds Present, Soft, Non Tender, Non-Distended Extremities: No clubbing, No cyanosis, No edema Skin: No rashes Musculoskeletal: Muscle Wasting Lymphatic: No Cervical, Supraclavicular, or Inguinal Adenopathy Psych/Mental Status: Appropriate Vital Signs Temp Pulse Resp BP Pulse Ox 97.9 F 124 H 16 132/95 H 97 12/20/18 14:00 12/20/18 14:00 12/20/18 14:00 12/20/18 14:00 12/20/18 14:00 Oxygen Delivery Method Room Air Weight: 71.7 kg Body Mass Index (BMI) 22.6 Intake and Output for Last 24 Hours 12/18/18 12/19/18 12/20/18 23:59 23:59 23:59 Intake Total 1085 / 1085 1200 / 1320 270 / 270 Output Total 650 / 650 150 / 450 1025 / 1025 Balance 435 / 435 1050 / 870 -755 / -755 Laboratory Tests Past 24 Hrs 12/20/18 06:30 Sodium 137 Potassium 4.3 Chloride 102 Carbon Dioxide 26.0 BUN 13 Creatinine 0.52 L Estim Creat Clear Calc 196.39 Est GFR (MDRD) Af Amer 233 Est GFR (MDRD) Non-Af 193 BUN/Creatinine Ratio 25.2 H Glucose 97 Calcium 9.6 Phosphorus 6.2 H Albumin 2.7 L Medical Necessity - Tobacco Use Smoking Status: Light Smoker (<10/day) Tobacco Use: Cigarettes Assessment/Plan All Active Problems (Last Reviewed 12/16/18 @ 08:29 by Nabeel Moses MD) Hypokalemia (Acute) Hyponatremia (Acute) Hypochloremia (Acute) Metabolic alkalosis (Acute) Anemia (Acute) Heme positive stool (Acute) 1-severe hypokalemia with paralysis.most probably from poor K oral intake. potassium level improved to normal with replacement. K is 4.3 this morning continue PT 2-hyponatremia with hypovolemia. Initial presenting level of sodium was 120. Na level improved with IVF.Na correcting rate was appropriate Na level 137 this morning 3-Metabolic alkalosis. Most probably related to volume contraction. resolved with IVF. HCO3 level is 26 on 12/20 Renal team will sign off. Please call if any question at [phone]
--- NOTE | 2018-12-20 15:32 | PCM.PN.HOSP ---
Patient Problems: Active and Suspected Problems (Last Reviewed 12/16/18 @ 08:29 by Nabeel Moses MD) Hypokalemia (Acute) Hyponatremia (Acute) Hypochloremia (Acute) Metabolic alkalosis (Acute) Anemia (Acute) Heme positive stool (Acute) Subjective: Patient seen and examined. He had no complaints. Review of systems otherwise negative. He is still awaiting placement. Labs and vitals reviewed. Vitals/I&O's: Vital Signs Temp Pulse Resp BP Pulse Ox 97.9 F 124 H 16 132/95 H 97 12/20/18 14:00 12/20/18 14:00 12/20/18 14:00 12/20/18 14:00 12/20/18 14:00 Oxygen Delivery Method Room Air Weight: 158 lb 1.143 oz Body Mass Index (BMI) 22.6 Intake and Output for Last 24 Hours 12/18/18 12/19/18 12/20/18 23:59 23:59 23:59 Intake Total 1085 / 1085 1200 / 1320 270 / 270 Output Total 650 / 650 150 / 450 1025 / 1025 Balance 435 / 435 1050 / 870 -755 / -755 General: Alert, Oriented x3, Cooperative, HEENT: Atraumatic, PERRLA, EOMI, Normocephalic Oral: Moist Mucosa Neck: Supple, No JVD, Negative Carotid Bruits Lungs: Clear to auscultation, Normal air movement, No rhonchi, No wheeze, No rales Cardiovascular: Regular rate, Normal S1, Normal S2, No murmurs Abdomen: Bowel Sounds Present, Soft, Non Tender, Non-Distended Extremities: No edema, Capillary Refill Less than 3 Seconds Skin: No rashes, No breakdown Musculoskeletal: No Tenderness to Palpation of Joints or Extremities, Muscle Wasting Neurological: Cranial nerves II-XII grossly intact, - - power 4-/5 in all extremities; moves all limbs spontaneously. has bilateral foot drop. Psych/Mental Status: Normal Affect, Appropriate Laboratory Results 12/20/18 06:30: Sodium 137, Potassium 4.3, Chloride 102, Carbon Dioxide 26.0, BUN 13, Creatinine 0.52 L, Estim Creat Clear Calc 196.39, Est GFR (MDRD) Af Amer 233, Est GFR (MDRD) Non-Af 193, BUN/Creatinine Ratio 25.2 H, Glucose 97, Calcium 9.6, Phosphorus 6.2 H, Albumin 2.7 L Current Medications Acetaminophen (Tylenol) 650 mg PO Q6H PRN PRN PRN Reason: Mild Pain (1-3)/Temp > 100.7 F Last Admin: 12/20/18 07:54 Dose: 650 mg Documented by: Dextrose (D50w Syringe) 0 gm IV X1 PRN; Protocol PRN Reason: Hypoglycemia Glucagon () 1 mg IM .X1 PRN PRN Reason: Hypoglycemia Sodium Chloride () 250 mls @ 15 mls/hr IV .[id number] PRN PRN Reason: SALINE FLUSH Lorazepam (Ativan) 2 mg IV X1 PRN PRN Reason: Seizure Nicotine (Nicoderm Cq (Pbkc)) 14 mg TRANSDERM. DAILY [facility] Last Admin: 12/20/18 07:40 Dose: 14 mg Documented by: Nutritional Formula (Lactose Free) (Ensure Enlive) 120 ml PO 4X/DAY [facility] Last Admin: 12/20/18 13:35 Dose: 120 ml Documented by: Ondansetron HCl (Zofran) 4 mg IV Q8H PRN PRN PRN Reason: NAUSEA/VOMITING Pantoprazole Sodium (Protonix) 40 mg PO DAILY [facility] Last Admin: 12/20/18 07:40 Dose: 40 mg Documented by: Senna/Docusate Sodium (Senokot-S, Natacha-Colace) 1 tablet PO BID [facility] Last Admin: 12/20/18 07:40 Dose: 1 tablet Documented by: Sodium Chloride () 10 - 40 ml IV UD PRN PRN Reason: SALINE FLUSH Medical Necessity - Tobacco Use Smoking Status: Light Smoker (<10/day) Tobacco Use: Cigarettes Assessment/Plan All Active Problems (Last Reviewed 12/16/18 @ 08:29 by Nabeel Moses MD) Hypokalemia (Acute) Hyponatremia (Acute) Hypochloremia (Acute) Metabolic alkalosis (Acute) Anemia (Acute) Heme positive stool (Acute) 1. 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 Hyponatremia, hypokalemia and hypochloremia resolved. 3. SInus tachyardia: chronic. EKG showed sinus tachycardia. previous EKGs show sinus tachycardia. BP has been in 130s/90s. Will start low dose metoprolol 4. Chronic alcohol use: States he has quit now. Counseled on continuous abstinence. 5. Acute normocytic normochromic anemia: Hb 8-10 Iron panel showed elevated ferritin with low TIBC indicating of anemia of chronic disease. Iron level was normal. stool for occult blood is positive. To follow up with general surgery on outpatient basis. on pantoprazole DVT prophylaxis: SCDs; Disposition: Awaiting placement. Code Visit Inpatient E&M: 09314 Subs Hosp L2
--- NOTE | 2018-12-20 17:19 | CASEMGMT ---
Social Work: Patrica Ron, [facility] [employer] at [facility] to assess patient for appropriateness. Spoke with Patrica after she met with patient. Patrica states that [facility] will accept patient for Sunday admission. Per Patrica, patient is also aware. aware that patient can be admitted to [facility] on Sunday after LOC is obtained. PLAN: Patient will be discharged to [facility] on Sunday pending LOC. JEWEL Estrada
[2018-12-20 18:11] VITALS: BP 138/99; PULSE 120
[2018-12-20] MEDS: Metoprolol Tartrate 25 MG Tablet 12.5 MG PO (18:11)
[2018-12-20 20:30] VITALS: BP 134/97; PULSE 115; RESP 18; TEMP 36.6; O2SAT 95
[2018-12-21 02:20] VITALS: BP 128/96; PULSE 105; RESP 18; TEMP 36.8; O2SAT 95
[2018-12-21 08:30] VITALS: BP 146/108; PULSE 122; RESP 18; TEMP 36.4; O2SAT 96
[2018-12-21 09:14] VITALS: PULSE 123
[2018-12-21] MEDS: Metoprolol Tartrate 25 MG Tablet 12.5 MG PO ×2 (09:14→21:34)
[2018-12-21] MEDS: Pantoprazole Sodium 40 MG Tablet PO (09:14)
[2018-12-21] MEDS: Senna/Docusate Sodium 1 Tablet PO ×2 (09:14→21:33)
--- NOTE | 2018-12-21 10:14 | PN_ITS ---
Patient Problems: Active and Suspected Problems (Last Reviewed 12/16/18 @ 08:29 by Nabeel Moses MD) Hypokalemia (Acute) Hyponatremia (Acute) Hypochloremia (Acute) Metabolic alkalosis (Acute) Anemia (Acute) Heme positive stool (Acute) Subjective: Patient seen and examined. He has no complaints this morning and feels well. Review of systems otherwise negative. Patient has been accepted at [facility] but needs level of care from Medicaid. Process will be started on Sunday. Vitals/I&O's: Vital Signs Temp Pulse Resp BP Pulse Ox 97.6 F L 123 H 18 146/108 H 96 12/21/18 08:30 12/21/18 09:14 12/21/18 08:30 12/21/18 08:30 12/21/18 08:30 Oxygen Delivery Method Room Air Weight: 158 lb 1.143 oz Body Mass Index (BMI) 22.6 Intake and Output for Last 24 Hours 12/19/18 12/20/18 12/21/18 23:59 23:59 23:59 Intake Total 1200 / 1320 940 / 940 200 / 200 Output Total 150 / 450 1725 / 1725 700 / 700 Balance 1050 / 870 -785 / -785 -500 / -500 General: Alert, Oriented x3, Cooperative, HEENT: Atraumatic, PERRLA, EOMI, Normocephalic Oral: Moist Mucosa Neck: Supple, No JVD, Negative Carotid Bruits Lungs: Clear to auscultation, Normal air movement, No rhonchi, No wheeze, No rales Cardiovascular: Regular rate, Normal S1, Normal S2, No murmurs Abdomen: Bowel Sounds Present, Soft, Non Tender, Non-Distended Extremities: No edema, Capillary Refill Less than 3 Seconds Skin: No rashes, No breakdown Musculoskeletal: No Tenderness to Palpation of Joints or Extremities, Muscle Wasting Neurological: Cranial nerves II-XII grossly intact, - - power 4-/5 in all extremities; moves all limbs spontaneously. has bilateral foot drop. Psych/Mental Status: Normal Affect, Appropriate Current Medications Acetaminophen (Tylenol) 650 mg PO Q6H PRN PRN PRN Reason: Mild Pain (1-3)/Temp > 100.7 F Last Admin: 12/20/18 07:54 Dose: 650 mg Documented by: Dextrose (D50w Syringe) 0 gm IV X1 PRN; Protocol PRN Reason: Hypoglycemia Glucagon () 1 mg IM .X1 PRN PRN Reason: Hypoglycemia Sodium Chloride () 250 mls @ 15 mls/hr IV .[id number] PRN PRN Reason: SALINE FLUSH Lorazepam (Ativan) 2 mg IV X1 PRN PRN Reason: Seizure Metoprolol Tartrate (Lopressor (Beta Joni)) 12.5 mg PO DAILY [facility] Last Admin: 12/21/18 09:14 Dose: 12.5 mg Documented by: Nicotine (Nicoderm Cq (Pbkc)) 14 mg TRANSDERM. DAILY [facility] Last Admin: 12/21/18 09:13 Dose: 14 mg Documented by: Nutritional Formula (Lactose Free) (Ensure Enlive) 120 ml PO 4X/DAY [facility] Last Admin: 12/21/18 09:14 Dose: 120 ml Documented by: Ondansetron HCl (Zofran) 4 mg IV Q8H PRN PRN PRN Reason: NAUSEA/VOMITING Pantoprazole Sodium (Protonix) 40 mg PO DAILY [facility] Last Admin: 12/21/18 09:14 Dose: 40 mg Documented by: Senna/Docusate Sodium (Senokot-S, Natacha-Colace) 1 tablet PO BID [facility] Last Admin: 12/21/18 09:14 Dose: 1 tablet Documented by: Sodium Chloride () 10 - 40 ml IV UD PRN PRN Reason: SALINE FLUSH Medical Necessity - Tobacco Use Smoking Status: Light Smoker (<10/day) Tobacco Use: Cigarettes Assessment/Plan All Active Problems (Last Reviewed 12/16/18 @ 08:29 by Nabeel Moses MD) Hypokalemia (Acute) Hyponatremia (Acute) Hypochloremia (Acute) Metabolic alkalosis (Acute) Anemia (Acute) Heme positive stool (Acute) 1. 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 Able to mobilise, but needs 2 person assist * EMG showed evidence of polyneuropathy likely due to alcohol abuase * CT brain was negative, and Cervical, Lumbar and thoracic MRI were negative for any acute pathology * neurology on board * PT/OT on board * 2. Hyponatremia, hypokalemia and hypochloremia * resolved. * 3. SInus tachyardia: * chronic. EKG showed sinus tachycardia. * previous EKGs show sinus tachycardia. * BP has been in 130s/90s. Will start low dose metoprolol 12.5mg bid 4. Chronic alcohol use: States he has quit now. Counseled on continuous abstinence. 5. Acute normocytic normochromic anemia: * Hb 8-10 * Iron panel showed elevated ferritin with low TIBC indicating of anemia of chronic disease. Iron level was normal. * stool for occult blood is positive. To follow up with general surgery on outpatient basis. * on pantoprazole * DVT prophylaxis: SCDs; Disposition: Awaiting placement. Accepted in [facility]. Needs Medicaid Level of care. Process will be started on Sunday Code Visit Inpatient E&M: 77461 Subs Hosp L2
[2018-12-21 14:00] VITALS: BP 139/104; PULSE 109; RESP 18; TEMP 36.9; O2SAT 95
[2018-12-21 20:14] VITALS: BP 131/96; PULSE 115; RESP 16; TEMP 37; O2SAT 95
[2018-12-21 21:34] VITALS: PULSE 128
[2018-12-22 02:50] VITALS: BP 139/97; PULSE 106; RESP 16; TEMP 37.2; O2SAT 95
--- NOTE | 2018-12-22 09:13 | PN_ITS ---
Patient Problems: Active and Suspected Problems (Last Reviewed 12/16/18 @ 08:29 by Nabeel Moses MD) Hypokalemia (Acute) Hyponatremia (Acute) Hypochloremia (Acute) Metabolic alkalosis (Acute) Anemia (Acute) Heme positive stool (Acute) Subjective: Patient seen and examined. He had no complaints. Review of systems otherwise negative. Vitals/I&O's: Vital Signs Temp Pulse Resp BP Pulse Ox 98.9 F 106 H 16 139/97 H 95 12/22/18 02:50 12/22/18 02:50 12/22/18 02:50 12/22/18 02:50 12/22/18 02:50 Oxygen Delivery Method Room Air Weight: 158 lb 1.143 oz Body Mass Index (BMI) 22.6 Intake and Output for Last 24 Hours 12/20/18 12/21/18 12/22/18 23:59 23:59 23:59 Intake Total 940 / 940 1120 / 1240 220 / 220 Output Total 1725 / 1725 1800 / 2525 1325 / 1325 Balance -785 / -785 -680 / -1285 -1105 / -1105 General: Alert, Oriented x3, Cooperative, HEENT: Atraumatic, PERRLA, EOMI, Normocephalic Oral: Moist Mucosa Neck: Supple, No JVD, Negative Carotid Bruits Lungs: Clear to auscultation, Normal air movement, No rhonchi, No wheeze, No rales Cardiovascular: Regular rate, Normal S1, Normal S2, No murmurs Abdomen: Bowel Sounds Present, Soft, Non Tender, Non-Distended Extremities: No edema, Capillary Refill Less than 3 Seconds Skin: No rashes, No breakdown Musculoskeletal: No Tenderness to Palpation of Joints or Extremities, Muscle Wasting Neurological: Cranial nerves II-XII grossly intact, - - power 4-/5 in all extremities; moves all limbs spontaneously. has bilateral foot drop. Psych/Mental Status: Normal Affect, Appropriate Current Medications Acetaminophen (Tylenol) 650 mg PO Q6H PRN PRN PRN Reason: Mild Pain (1-3)/Temp > 100.7 F Last Admin: 12/20/18 07:54 Dose: 650 mg Documented by: Dextrose (D50w Syringe) 0 gm IV X1 PRN; Protocol PRN Reason: Hypoglycemia Glucagon () 1 mg IM .X1 PRN PRN Reason: Hypoglycemia Sodium Chloride () 250 mls @ 15 mls/hr IV .[id number] PRN PRN Reason: SALINE FLUSH Lorazepam (Ativan) 2 mg IV X1 PRN PRN Reason: Seizure Metoprolol Tartrate (Lopressor (Beta Joni)) 12.5 mg PO BID [facility] Last Admin: 12/21/18 21:34 Dose: 12.5 mg Documented by: Nicotine (Nicoderm Cq (Pbkc)) 14 mg TRANSDERM. DAILY [facility] Last Admin: 12/21/18 09:13 Dose: 14 mg Documented by: Nutritional Formula (Lactose Free) (Ensure Enlive) 120 ml PO 4X/DAY [facility] Last Admin: 12/21/18 21:33 Dose: 120 ml Documented by: Ondansetron HCl (Zofran) 4 mg IV Q8H PRN PRN PRN Reason: NAUSEA/VOMITING Pantoprazole Sodium (Protonix) 40 mg PO DAILY [facility] Last Admin: 12/21/18 09:14 Dose: 40 mg Documented by: Senna/Docusate Sodium (Senokot-S, Natacha-Colace) 1 tablet PO BID [facility] Last Admin: 12/21/18 21:33 Dose: 1 tablet Documented by: Sodium Chloride () 10 - 40 ml IV UD PRN PRN Reason: SALINE FLUSH Medical Necessity - Tobacco Use Smoking Status: Light Smoker (<10/day) Tobacco Use: Cigarettes Assessment/Plan All Active Problems (Last Reviewed 12/16/18 @ 08:29 by Nabeel Moses MD) Hypokalemia (Acute) Hyponatremia (Acute) Hypochloremia (Acute) Metabolic alkalosis (Acute) Anemia (Acute) Heme positive stool (Acute) 1. 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 Hyponatremia, hypokalemia and hypochloremia * resolved. * 3. SInus tachyardia: * chronic. EKG showed sinus tachycardia. * previous EKGs show sinus tachycardia. * BP has been in 130s/90s. on metoprolol 12.5mg bid * will benefit from 2D echo. No record of previous echo in EMR * will order echo for tomorrow 4. Chronic alcohol use: States he has quit now. Counseled on continuous abstinence. 5. Acute normocytic normochromic anemia: * Hb 8-10 * Iron panel showed elevated ferritin with low TIBC indicating of anemia of chronic disease. Iron level was normal. * stool for occult blood is positive. To follow up with general surgery on outpatient basis. * on pantoprazole * DVT prophylaxis: SCDs; Disposition: Awaiting placement. Accepted in [facility]. Needs Medicaid Level of care. Process will be started on Sunday Code Visit Inpatient E&M: 86652 Subs Hosp L2
[2018-12-22 10:15] VITALS: BP 140/98; PULSE 119; RESP 16; TEMP 36.9; O2SAT 97
[2018-12-22 10:20] VITALS: BP 140/98; PULSE 119
[2018-12-22] MEDS: Metoprolol Tartrate 25 MG Tablet 12.5 MG PO ×2 (10:20→21:32)
[2018-12-22] MEDS: Pantoprazole Sodium 40 MG Tablet PO (10:23)
[2018-12-22 10:24] LABS: Thyroid Stim Hormone (TSH) 4.56 uIU/mL (0.358-3.74)
[2018-12-22] MEDS: Senna/Docusate Sodium 1 Tablet PO (10:25)
[2018-12-22 11:51] LABS: Free T3 2.6 pg/mL (2.18-3.98); T4 Free Direct 1.21 ng/dL (0.76-1.46)
[2018-12-22] MEDS: Acetaminophen 325 MG Tablet 650 MG PO (13:51)
[2018-12-22 14:00] VITALS: BP 132/82; PULSE 110; RESP 20; TEMP 36.6; O2SAT 95
--- NOTE | 2018-12-22 14:39 | ECHOD_ITS ---
Reason For Study: ARRHYTHMIA Procedure This was a 2D Doppler, Color Flow transthoracic echocardiogram. Exam performed portable in patient room. Left Ventricle Normal LV size. Left ventricular systolic function is lower limits of normal. The estimated ejection fraction is 50 %. No evidence for diastolic dysfunction. There is borderline global hypokinesis of the left ventricle. Right Ventricle Normal RV size. Normal systolic function. Atria Normal left atrium. Normal right atrium. Mitral Valve Normal mitral valve. Tricuspid Valve Normal tricuspid valve. Aortic Valve Normal aortic valve. Trisinus/trileaflet aortic valve. Pulmonic Valve Normal pulmonic valve. Great Vessels Normal aortic root. The pulmonary artery is normal size. Normal inferior vena cava. Pericardium/Pleural No pericardial effusion. MMode/2D Measurements & Calculations LVIDd: 4.7 cm IVSd: 0.94 cm Ao root diam: 3.3 cm LVIDs: 3.7 cm LVPWd: 1.0 cm RVDd: 3.1 cm FS: 21.6 % LAV(MOD-bp): 51.6 ml LA A4 area: 18.9 cm2 LA dimension(2D): 3.7 cm LAV(MOD-bp) Indexed: 27.6 ml/m2 LAV(MOD-sp2): 44.4 ml LAV(MOD-sp4): 49.2 ml RA A4 area: 13.0 cm2 Time Measurements MV dec time: 0.20 sec Doppler Measurements & Calculations MV E max poly: 69.1 cm/sec Ao V2 max: 94.7 cm/sec LV V1 max: 93.2 cm/sec MV A max poly: 66.9 cm/sec Ao max P.6 mmHg LV V1 max P.5 mmHg MV E/A: 1.0 PA V2 max: 89.7 cm/sec Interpretation Summary Normal LV size. Left ventricular systolic function is lower limits of normal. The estimated ejection fraction is 50 %. No evidence for diastolic dysfunction. The global longitudinal strain = -15.4 % (normal). Ordering Physician: Judy Swenson Referring Physician: SARAH ESTEBAN Performed By: Batool Alexander, VIANNEY, RVT
[2018-12-22 19:58] VITALS: BP 126/91; PULSE 119; RESP 16; TEMP 36.6; O2SAT 99
[2018-12-22 21:32] VITALS: PULSE 120
[2018-12-22] MEDS: 0.9% NaCl Peripheral Flush Adult/Peds IV (21:40)
[2018-12-23 02:02] VITALS: BP 139/102; PULSE 111; RESP 16; TEMP 37.1; O2SAT 94
--- NOTE | 2018-12-23 07:03 | PCM.PN.HOSP ---
Patient Problems: Active and Suspected Problems (Last Reviewed 12/16/18 @ 08:29 by Nabeel Moses MD) Hypokalemia (Acute) Hyponatremia (Acute) Hypochloremia (Acute) Metabolic alkalosis (Acute) Anemia (Acute) Heme positive stool (Acute) Subjective: Patient with no acute events overnight per self and per nursing report aside from difficulty sleeping he notes. She notes being eager for discharge to [facility] facility and understands that we are waiting updated level of care. Discussed again importance of maintaining sobriety to patient's current status to avoid worsening status notes understanding. Patient denies fevers, chills, nausea, emesis, abdominal pain, chest pain or dyspnea. Objective: Physical Examination: General: awake, alert, oriented x 3 and cooperative, seated upright in the bed, eating breakfast, no acute distress, no complaints. Skin: normal color, turgor, no icterus, cyanosis. HEENT: AT/NC, EOMI, PERRLA, MMM. Lungs: CTA bilaterally, moderate effort, mild decrease BL bases, no rales, ronchi or wheezing. Heart: Tachycardic with regular rhythm; no gallop, rub audible. Abdomen: soft, NTTP, ND, normal BS, + HM. Extremities: no cyanosis, clubbing, or edema, using LUE, not in sling or MEI wrap. Neurological: patient awake, alert, oriented x 3; cognitive function intact; pupils equally reactive to light and accomodation; cranial nerves II-XII grossly normal, moving all 4 extremities, no focal deficits, strength 4/5 diffusely, BL foot drop present. Psychiatric: affect appears fatigued, no acute evidence of depressive or anxiety feelings. Vitals/I&O's: Vital Signs Temp Pulse Resp BP Pulse Ox 98.7 F 111 H 16 139/102 H 94 12/23/18 02:02 12/23/18 02:02 12/23/18 02:02 12/23/18 02:02 12/23/18 02:02 Oxygen Delivery Method Room Air Weight: 158 lb 1.143 oz Body Mass Index (BMI) 22.6 Intake and Output for Last 24 Hours 12/21/18 12/22/18 12/23/18 23:59 23:59 23:59 Intake Total 1120 / 1240 1180 / 1420 590 / 590 Output Total 1800 / 2525 1825 / 2100 875 / 875 Balance -680 / -1285 -645 / -680 -285 / -285 Laboratory Results 12/20/18 06:30: TSH 4.56 H 12/20/18 06:30: Free T4 1.21, Free T3 pg/dL 2.6 Current Medications Acetaminophen (Tylenol) 650 mg PO Q6H PRN PRN PRN Reason: Mild Pain (1-3)/Temp > 100.7 F Last Admin: 12/22/18 13:51 Dose: 650 mg Documented by: Dextrose (D50w Syringe) 0 gm IV X1 PRN; Protocol PRN Reason: Hypoglycemia Glucagon () 1 mg IM .X1 PRN PRN Reason: Hypoglycemia Sodium Chloride () 250 mls @ 15 mls/hr IV .[id number] PRN PRN Reason: SALINE FLUSH Lorazepam (Ativan) 2 mg IV X1 PRN PRN Reason: Seizure Metoprolol Tartrate (Lopressor (Beta Joni)) 12.5 mg PO BID [facility] Last Admin: 12/22/18 21:32 Dose: 12.5 mg Documented by: Nicotine (Nicoderm Cq (Pbkc)) 14 mg TRANSDERM. DAILY [facility] Last Admin: 12/22/18 10:21 Dose: 14 mg Documented by: Nutritional Formula (Lactose Free) (Ensure Enlive) 120 ml PO 4X/DAY [facility] Last Admin: 12/22/18 21:32 Dose: 120 ml Documented by: Ondansetron HCl (Zofran) 4 mg IV Q8H PRN PRN PRN Reason: NAUSEA/VOMITING Pantoprazole Sodium (Protonix) 40 mg PO DAILY [facility] Last Admin: 12/22/18 10:23 Dose: 40 mg Documented by: Senna/Docusate Sodium (Senokot-S, Natacha-Colace) 1 tablet PO BID [facility] Last Admin: 12/22/18 20:02 Dose: Not Given Documented by: Sodium Chloride () 10 - 40 ml IV UD PRN PRN Reason: SALINE FLUSH Last Admin: 12/22/18 21:40 Dose: 10 ml Documented by: Medical Necessity - Tobacco Use Smoking Status: Light Smoker (<10/day) Tobacco Use: Cigarettes Assessment/Plan All Active Problems (Last Reviewed 12/16/18 @ 08:29 by Nabeel Moses MD) Hypokalemia (Acute) Hyponatremia (Acute) Hypochloremia (Acute) Metabolic alkalosis (Acute) Anemia (Acute) Heme positive stool (Acute) The patient is a 38 y/o M w/ PMHx: EtOH Abuse who presents to the [facility] ED on 12/12/18 secondary to debility, unable to walk with notable evidence metabolic alkalosis, hypochloremia, hyponatremia and severe hypokalemia. (1) Severe Electrolyte Disturbances secondary to EtOH Abuse: Admission K 1.7, admission mag 1.7, admission phos 2.6, admission Na 120, admission Chl 73 with initial admission to the ICU, aggressive supplementation, presentation felt secondary to his EtOH Abuse. 12/20/18 K 4.3, 12/13/18 Mag 1.9, 12/20/18 Na 137, 12/20/18 Chl 102, corrected. (2) Severe Generalized Weakness, Paresis secondary to Alcoholic Neuropathy: Presentation w/ debility, inability to walk, EMG w/ polyneuropathy secondary to his EtOH abuse, CT head negative, Cervical, Lumbar and Thoracic MRI without acute findings, Neurology following. PT, OT following w/ planned SNF transition. CM consulted. (3) Chronic Normocytic Anemia w/ + Stool Guiac: Admission Hgb 9.2, repeat similar, last 12/17/09 Hgb 10.6, guiac positive, Fe low normal range, TIBC low, Fe saturation normal range, ferritin elevated more consistent with AOCD appearance, given elevated MCV and EtOH abuse will also obtain folic acid and vitamin B12 level. Given stable Hgb planned outpatient Surgery/GI follow-up at discharge. (4) Abnormal EKG w/ Sinus Tachycardia: Noted upon admission with T wave inversions in leads V1 through V4 5 felt secondary to hypokalemia, serial cardiac enzymes performed which were noted to be unremarkable, ECHO requested and pending, maintained on metoprolol. (5) Elevated LFTs: Admission AST/ALT 106/26, T bili 1.10, D Bili 0.44, likely secondary to his EtOH abuse, repeat AST/ALT 226/126, Alk phos 261, pending liver US and hepatitis panel. (6) Tobacco Abuse: Encouraged cessation, inpatient consultation per RT, NR if desired. (7) Left Wrist Fracture: Known prior to admission, following with [facility] orthopedic surgery outpatient, maintain weightbearing status and wrap/sling. (8) Elevated TSH: Elevated TSH 4.56, normal FT4, subclinical, given acute presentation, encourage repeat TFS in 4-6 weeks. (9) GERD: PPI. (10) DVT Prophylaxis: SCDs, defer chemoprophylaxis given #3. Code Visit Inpatient E&M: 93449 Subs Hosp L2
[2018-12-23 07:34] LABS: Hematocrit 33.7 % (40-54); Hemoglobin 11.2 g/dl (13.0-16.5); Mean Corp Hgb Conc 33.2 g/gl (32-36); Mean Corpuscular Hgb 32.1 pg (27.0-32.0); Mean Corpuscular Volume 96.6 fL (80-94); Mean Platelet Vol. 9.7 fl (6.2-12.0); Platelet Count 500 K/mm3 (150-450); RBC Distribution Width CV 15.9 % (11.6-14.6); RBC Distribution Width SD 53.3 fl (35.1-43.9); Red Blood Count 3.49 M/mm3 (4.6-6.2); White Blood Count 10.5 K/mm3 (4.4-11.0)
[2018-12-23 07:35] LABS: Scan Indicated on CBC? Y/N NO
[2018-12-23 08:01] LABS: ALB/GLOB Ratio 0.6 RATIO (0.9-2.4); AST(SGOT) 226 U/L (15-37); Alanine Aminotransfer ALT/SGPT 126 U/L (16-61); Albumin, Serum 3.1 g/dL (3.2-5.0); Alkaline Phosphatase 261 U/L (45-117); Anion Gap 10 (5-15); BUN 13 mg/dL (7-18); BUN/Creat Ratio 24.9 RATIO (10-20); Calcium,Total 10.1 mg/dL (8.5-10.1); Chloride 100 mmol/L (98-107); Creatinine, Serum 0.52 mg/dL (0.70-1.30); EST Glomerular Filtration Rate 189 mL/min (>60); Est Glom Filt Rate - Afr Amer 229 mL/min (>60); Estimated Creatinine Clearance 196.39 ml/min; Globulin 5.5 g/dL (2.2-4.2); Glucose 112 mg/dL (74-106); Potassium 4.2 mmol/L (3.5-5.1); Protein, Total 8.6 g/dL (6.4-8.2); Sodium Level 134 mmol/L (136-145)
[2018-12-23 09:05] LABS: Vitamin B12 716 pg/mL (211-911)
--- NOTE | 2018-12-23 09:16 | NURSING ---
david called at Dr. Orozco request and reminded of order request to be sooner rather than later
--- NOTE | 2018-12-23 09:40 | US_ITS ---
STUDY: ABDOMINAL ULTRASOUND - RIGHT UPPER QUADRANT REASON FOR VISIT: Male, 38 years old. Elevated LFTs TECHNIQUE: Ultrasound evaluation of the right upper quadrant was performed with real-time and static addison-scale imaging. TECHNICAL QUALITY: Adequate. COMPARISON: Abdominal ultrasound November 18, 2017 FINDINGS: Liver: The liver measures 22 cm. There is increased hepatic echogenicity. The bile ducts are within normal limits. There is hepatic color flow. The direction of portal flow is hepatopetal. There is no demonstrated mass lesion. Gallbladder: Removed. Common Bile Duct (C.B.D.): The common bile duct measures 8 mm. Pancreas: Normal size of the head, body and tail of the pancreas. There is normal echogenicity of the pancreas. There is no demonstrated pancreatic mass or cyst. Right Kidney: Normal size of the right kidney. The right kidney measures 12 cm. Normal renal cortex. There is no demonstrated renal mass or cyst. There is no right hydronephrosis. US/Liver IMPRESSION: Fatty liver and hepatomegaly. No hepatic lesions identified. Status post cholecystectomy. Electronically Signed: Gasper Mcarthur, at 17:44 EDT Tel , Service support ,
--- NOTE | 2018-12-23 09:43 | PCM.TXEXTCAR ---
- Diet 12/12/18 02:04 Diet: Regular Diet Food consistency:: Regular Liquid Consistency:: Regular/Thin Is pt able to select menu?: No - Routine Orders/Code Status Enema Type: Fleetz Enema Frequency: Daily PRN Suppository Type: Dulcolax 10mg Suppository Frequency: Daily PRN O2 Frequency: PRN Keep PO Greater than or Equal to (%): 90 Routine Lab Work: - - Repeat CBC, CMP within 1 week. Code Status: Full Code - Suggestions for Active Care Change Position every (hours): 2 Hours to sit in a chair: 6 Times a day to sit in chair: 3 - Therapies Weight Bearing: Weight bearing as tolerated Physical Therapy: Eval and Treat Occupational Therapy: Eval and Treat - Allergies/Procedures Done in Hospital Allergies/Adverse Reactions: Allergies bee venom protein (honey bee) Allergy (Verified 12/11/18 23:48) Anaphylaxis Penicillins [PCN] Adverse Reaction (Verified 12/11/18 23:48) Upset Stomach Procedures: None - Type of Care/Length of Stay Estimated LOS: Convalescent Care Less Than 30 days Type of Care Needed: Skilled Rehab Potential: Fair Prognosis: Good - Additional Orders/Day of Discharge Additional Orders: (1) HOB. (2) Aspiration and fall precautions. (3) Aggressive IS 10x/hr 7a-7p. (4) Continue nutrition consultations. (5) NWB to LUE, use brace as instructed per his [facility] Orthopedic surgeon, follow-up with his surgeon as previously arranged. H&P will serve as current which was dated: 12/12/18 Day of Discharge: 12/23/18 - Dietary and Speech Recommendations Dietitian Recommendations/Changes: Continue regular diet. Will continue Ensure Enlive 120 mL 4x/day for additional calories/protein if consumed. Please get current wt. - Follow Up Care Primary Care Physician: Leandro Garza MD [Primary Care Provider] - Please follow up with your Primary Care Physician in: Follow-up within 3-5 days of transition to SNF and 1-2 at SNF discharge. Please Follow Up With: Nabeel oMses MD When: Follow-up within 1 week, may see SENIOR ACCOUNT EXECUTIVE.
--- NOTE | 2018-12-23 10:00 | CASEMGMT ---
Social Work Note [facility] is able to accept pt pending LOC. SW faxed LOC to [facility]. Plan: [facility] pending LOC Nyla Ashton PHYSICIAN CREDENTIALING SPECIALIST, DRILLER PORTABLE
[2018-12-23 11:10] VITALS: BP 130/92; PULSE 118
[2018-12-23] MEDS: Pantoprazole Sodium 40 MG Tablet PO (11:10)
[2018-12-23] MEDS: Metoprolol Tartrate 25 MG Tablet PO (11:10)
[2018-12-23 11:14] VITALS: BP 130/90; PULSE 118; RESP 16; TEMP 37.1; O2SAT 97
--- NOTE | 2018-12-23 11:56 | CASEMGMT ---
Social Work Note SKYE received message from pt's father Sage asking for call back. Per message Sage states that pt now has active Medicaid and pt was approved on December 20 and he would like pt to go to [facility]. SW met with pt, introduced self and role at [facility]. Pt is alert and orientated, does state that he is sleepy. Pt states that he is still agreeable to go to [facility] at discharge. SW explained that this worker is waiting for LOC from Medicaid. Pt states understanding. SW placed a call to Sage. Sage again states that he was notified that pt is now active with Medicaid and not pending and he would like pt to go to [facility] at discharge. SW informed Sage that LOC was already submitted to [facility] and that pt is ready for discharge today. SW explained that this worker would have to resend referral to [facility], get documentation that pt is active with Medicaid, and [facility] would have to accept pt and this worker is not sure if [facility] is able to accept pt. Sage states that he spoke with SW at [facility] and again states pt is active with Medicaid and it would be closer for pt's parents if pt went to [facility]. SW informed Sage that this worker understands but again reiterated that LOC was already submitted to [facility] and informed Sage that if pt goes to [facility], pt could be transferred to [facility] from [facility]. SW did updated Sage that this worker spoke with pt who is still agreeable to go to [facility] and that it is pt's choice. Sage states understanding, states that he was informed process wouldn't be started until Sunday. SW informed Sage that process had to be started last week and that pt couldn't just be at [facility] until his Medicaid got active and that is why pending Medicaid was submitted last week and that is why SNF's had to be looked at last week. SW informed Sage that [facility] was unable to accept pt last week due to pending medicaid so next SNF had to be looked at for pt. Sage states that his parents were at [facility] and he doesn't want pt there. SW again informed Sage that pt is agreeable to [facility], LOC was already submitted, pt is ready for discharge today and if pt is unhappy with [facility] he can be transferred to a different SNF. Sage states understanding and is agreeable to [facility]. Sage states pending the time pt is discharged will determine if family is able to transport pt or if transportation will need to be arranged. SW informed Sage that this worker will update him once LOC is received. Sage states understanding. Plan: [facility] pending LOC Nyla Ashton HOUSEKEEPER CLEANING COOKING, SATURATOR
--- NOTE | 2018-12-23 16:29 | PCM.DC.SUM ---
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 Booth Nephrology Dr. Moses Neurology Dr. Lagunas ICU/Pulmonary Operations: None Procedures: 2-D Echocardiogram, EKG Summary of Care Provided: The patient is a 38 y/o M w/ PMHx: EtOH Abuse who presented to the [facility] ED on 12/12/18 secondary to debility, unable to walk with notable evidence metabolic alkalosis, hypochloremia, hyponatremia and severe hypokalemia. Initial evaluation upon ED evaluation w/ K 1.7, mag 1.7, phos 2.6, Na 120, Chl 73 with initial admission to the ICU with aggressive supplementation with presentation felt secondary to his EtOH Abuse. 12/20/18 K 4.3, 12/13/18 Mag 1.9, 12/20/18 Na 137, 12/20/18 Chl 102, corrected. 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 EMG w/ polyneuropathy secondary to his EtOH abuse, CT head negative, Cervical, Lumbar and Thoracic MRI without acute findings, Neurology consulted and followed. Planned follow-up upon discharge to SNF following discharge. During admission, noted evidence chronic anemia w/ admission Hgb 9.2, repeat similar, last 12/17/09 Hgb 10.6, guiac positive, Fe low normal range, TIBC low, Fe saturation normal range, ferritin elevated more consistent with AOCD appearance, given elevated MCV and EtOH abuse obtained folic acid and vitamin B12 levels with continued MVI/folic acid/thiamine with discharge plan to have outpatient Surgery/GI follow-up. During admission patient with noted tachycardia which was ongoing with addition presentation w/ EKG w/ T wave inversions in leads V1 through V4 5 felt secondary to hypokalemia, serial cardiac enzymes performed which were noted to be unremarkable, ECHO obtained w/ normal LV size, normal lower limit normal LV systolic function, EF 50%, no evidence diastolic dysfunction. Patient maintained on metoprolol regimen. Noted elevated TSH 4.56 but normal FT4 and given acute presentation recommended repeat TFS in 4-6 weeks. Admission AST/ALT 106/26, T bili 1.10, D Bili 0.44, likely secondary to his EtOH abuse, 12/23/18 AST/ALT 226/126, Alk phos 261, liver US obtained w/ evidence of fatty liver and hepatomegaly with no hepatic lesions identified status post cholecystectomy evident and hepatitis panel pending at SNF discharge. Patient upon presentation with already known L wrist fracture with recommended continued NWB status, brace/wrap with activity and continued outpatient orthopedic follow-up as previously arranged. Patient discharged to SNF in improved condition with follow-up with PCP, Neurology as well as Surgery in addition to continued prior planned Orthopedic follow-up. - Physical Exam Vital Signs Temp Pulse Resp BP Pulse Ox 98.8 F 118 H 16 130/90 H 97 12/23/18 11:14 12/23/18 11:14 12/23/18 11:14 12/23/18 11:14 12/23/18 11:14 Oxygen Delivery Method Room Air Weight: 158 lb 1.143 oz Body Mass Index (BMI) 22.6 Intake and Output for Last 24 Hours 12/21/18 12/22/18 12/23/18 23:59 23:59 23:59 Intake Total 1120 / 1240 1180 / 1420 740 / 740 Output Total 1800 / 2525 1825 / 2100 1175 / 1175 Balance -680 / -1285 -645 / -680 -435 / -435 Laboratory Tests Past 24 Hrs 12/23/18 12/23/18 12/23/18 07:25 07:25 07:25 WBC 10.5 RBC 3.49 L Hgb 11.2 L Hct 33.7 L MCV 96.6 H MCH 32.1 H MCHC 33.2 RDW 15.9 H RDW Differential 53.3 H Plt Count 500 H MPV 9.7 Sodium 134 L Potassium 4.2 Chloride 100 Carbon Dioxide 24.0 Anion Gap 10 BUN 13 Creatinine 0.52 L Estim Creat Clear Calc 196.39 Est GFR (MDRD) Af Amer 229 Est GFR (MDRD) Non-Af 189 BUN/Creatinine Ratio 24.9 H Glucose 112 H Calcium 10.1 Total Bilirubin 0.30 AST 226 H ALT 126 H Alkaline Phosphatase 261 H Total Protein 8.6 H Albumin 3.1 L Globulin 5.5 H Albumin/Globulin Ratio 0.6 L Vitamin B12 716 Folate 7.40 Hepatitis A IgM Ab Hepatitis A Ab Total Hep Bs Antigen Hep B Core Total Ab Hep B Core IgM Ab 12/23/18 07:25 WBC RBC Hgb Hct MCV MCH MCHC RDW RDW Differential Plt Count MPV Sodium Potassium Chloride Carbon Dioxide Anion Gap BUN Creatinine Estim Creat Clear Calc Est GFR (MDRD) Af Amer Est GFR (MDRD) Non-Af BUN/Creatinine Ratio Glucose Calcium Total Bilirubin AST ALT Alkaline Phosphatase Total Protein Albumin Globulin Albumin/Globulin Ratio Vitamin B12 Folate Hepatitis A IgM Ab Pending Hepatitis A Ab Total Pending Hep Bs Antigen Pending Hep B Core Total Ab Pending Hep B Core IgM Ab Pending Home Medications: Medications to take at Discharge Acetaminophen [Tylenol Tablet] 650 mg PO Q6H PRN PRN tab 12/23/18 Ensure Enlive 120 ml PO 4X/DAY liquid 12/23/18 Folic Acid 1 mg PO DAILY #30 tab 12/23/18 Metoprolol Tartrate [Lopressor (beta aurelia)] 25 mg PO BID tab 12/23/18 Multivitamin [Once Daily] 1 ea PO DAILY #30 tab 12/23/18 Nicotine [Nicoderm] 14 mg TRANSDERM. DAILY patch 12/23/18 Pantoprazole Sodium [Protonix] 40 mg PO BID tab 12/23/18 Senna/Docusate Sodium [Senokot-S] 1 tab PO BID tab 12/23/18 Thiamine HCl 100 mg PO DAILY #30 tab 12/23/18 Following Prescrptions Were Given to Patient: Folic Acid 1 mg PO DAILY #30 tab Multivitamin [Once Daily] 1 ea PO DAILY #30 tab Thiamine HCl 100 mg PO DAILY #30 tab Primary Care Physician: Leandro Garza MD [Primary Care Provider] - Please follow up with your Primary Care Physician in: Follow-up within 3-5 days of transition to SNF and 1-2 at SNF discharge. Please Follow Up With: Nabeel Moses MD When: Follow-up within 1 week, may see ROLLOFF DRIVER. Disposition: Half-Way facility Minutes spent on discharge:: 25 Patient Condition:: Fair Medical Necessity - Tobacco Use Smoking Status: Light Smoker (<10/day) Tobacco Use: Cigarettes Meaningful Use Info Meaningful Use Diagnoses (Choose all that apply): None applicable Code Visit Inpatient E&M: 71587 Disch Hosp
--- NOTE | 2018-12-23 16:57 | CASEMGMT ---
Social Work Note SKYE received LOC from [facility]. SKYE spoke with Allie at [facility] and updated her that LOC was received. Allie states that nursing staff at [facility] would prefer for pt to discharge tomorrow morning as nursing staff has had call offs today and are short staffed. SKYE informed Allie that physician put the discharge in for pt to discharge today and pt is medically ready for discharge today. Allie asked that this worker ask physician to keep pt tonight and have pt discharge first thing tomorrow morning. SW to ask physician. Before this worker could ask physician about keeping pt tonight, this worker received another call from pt's father Sage. Sage states that he has spoken to Shae at [facility] and [facility] has beds available and since pt's medicaid is now active, they would be able to accept pt. Sage states that pt needs to go to [facility] and not [facility]. Sage states that there's no point in sending pt to [facility] just to transfer pt to [facility]. SKYE informed Sage that LOC was just received for [facility] and physician is discharging pt today and this worker is not sure if pt would be able to discharge to [facility] today. Sage states that pt will just need to stay at [facility] tonight then. SKYE informed Sage that it is up to the physician whether a pt is able to stay at [facility] and again reiterated that physician this morning is ready to discharge pt today and discharge is already in. Sage states that he will have to speak with the physician then. SKYE informed Sage that this worker will call [facility] and call [facility] to determine if discharge is possible for today. Sage states understanding. SKYE placed a call to Davina at [facility]. SKYE updated Davina that pt will now be going to [facility] instead of [facility]. Davina states she will change the SNF on LOC and states that a new LOC is not needed. SKYE placed a call to [facility] and spoke with Shae. Shae confirms that she spoke with pt's father Sage today and that she will need the new referral faxed. SKYE updated Shae that LOC has already been received for pt. SKYE faxed referral to [facility]. SKYE received call from Shae and Patrica at [facility] stating they are able to accept pt tonight and will need copy of HENS faxed to them. SKYE faxed completed discharge paperwork to [facility] including transfer to extended care facility, signed medication list, any scripts, LOC and HENS. Original in SNF folder and copy on pt's chart. SKYE placed a call to pt's father Sage and updated him on acceptance to [facility] and that transportation will need to be arranged via family as no transportation is available at this time of day. Sage states he doesn't get off work until 10:00pm but that this could transport pt around 6:30-7:00pm. SKYE Updated special technical operations officer, RN and charge Nurse of transportation time. SW attempted to update pt, pt soundly sleeping. Physician updated that pt will be discharged to SNF today. SKYE placed a call to Allie at [facility] and updated her that pt will be discharged to a different facility due to family's request. Plan: Discharge to [facility] under LOC with family transporting Nyla Poli DIGITAL SALES MANAGER, EARLY INTERVENTION SPECIALIST
[2018-12-23 17:00] VITALS: BP 137/96; PULSE 108; RESP 16; TEMP 36.8; O2SAT 98
[2018-12-24 05:06] LABS: HEPATITIS B SURFACE AG Negative (Negative); Hepatitis A AB, Total Negative (Negative); Hepatitis A IgM Antibody Negative (Negative); Hepatitis B Core AB IgM Negative (Negative); Hepatitis B Core Ab Total Negative (Negative); Hepatitis C Ab 0.2 s/co ratio (0.0-0.9)
[2018-12-24 12:19] LABS: Hep B Surface Antibodies Non Reactive (.)
== END 2018-12-23 19:10 | disposition skilled nursing facility (03) | DRG 73 ==
LOC: ED 12-12 00:17 → ICU 12-12 02:07 → MS3 12-13 13:27
PROVIDERS: Internal Medicine; Internal Medicine Critical Care Medicine; Internal Medicine Nephrology; Student in an Organized Health Care Education/Training Program; Admitting Provider Hospitalist; Emergency Provider Emergency Medicine; Family Provider Family Medicine; PCP Family Medicine; Visit Provider Family Medicine
DX: G62.1 Alcoholic polyneuropathy (principal); E43 Unspecified severe protein-calorie malnutrition; E87.3 Alkalosis; E87.1 Hypo-osmolality and hyponatremia; E87.6 Hypokalemia; F10.10 Alcohol abuse, uncomplicated; E87.8 Other disorders of electrolyte and fluid balance, not elsewhere classified; K21.9 Gastro-esophageal reflux disease without esophagitis; F17.210 Nicotine dependence, cigarettes, uncomplicated; D63.8 Anemia in other chronic diseases classified elsewhere; Z68.22 Body mass index [BMI] 22.0-22.9, adult; R19.5 Other fecal abnormalities; R94.6 Abnormal results of thyroid function studies; R94.31 Abnormal electrocardiogram [ECG] [EKG]; R00.0 Tachycardia, unspecified; R79.89 Other specified abnormal findings of blood chemistry; S62.102D Fracture of unspecified carpal bone, left wrist, subsequent encounter for fracture with routine healing
CPT/HCPCS: 36415; 70450; 70551; 71045; 72141; 72146; 72148; 73090; 73110; 76705; 80048; 80053; 80069; 80076; 80307; 80320; 81001; 82274; 82436; 82550; 82570; 82607; 82728; 82746; 83036; 83540; 83550; 83735; 84100; 84133; 84300; 84439; 84443; 84481; 84484; 85025; 85027; 86704; 86705; 86706; 86708; 86709; 86803; 87340; 93005; 93306; 95912; 97110; 97116; 97163; 97166; 97530; 97535; 97802; 99285; 99406; J7030; J7050; A4216; G0480

== ENCOUNTER 2019-02-12 07:42 | Day surgery (SDC) | payer MEDICAID, SELFPAY ==
[2019-01-14 09:00] VITALS: BMI 22.6
--- NOTE | 2019-01-18 11:37 | HP_ITS ---
Intake Vital Signs 01/14/19 Body Mass Index (BMI) 22.6 01/14/19 Height 5 ft 9.5 in 01/14/19 Weight: 144 lb 8 oz 01/14/19 Body Mass Index (BMI) 21.0 01/14/19 Blood Pressure 111/78 01/14/19 Blood Pressure Location Lt brachial 01/14/19 Blood Pressure Position Sitting 01/14/19 Respiratory Rate 16 01/14/19 Pulse Rate 76 01/14/19 Pulse Source Monitor 01/14/19 Temperature 97.2 F L 01/14/19 Temperature Source Oral 01/14/19 Pulse Ox 98 01/14/19 Oxygen Delivery Method room air Intake Visit Reasons: Seen DP @ [facility] Discuss & EGD & Scope Chief Complaint: weakness, severe x2wks;mild x2mos [employer] Required: No Is patient in pain?: No Allergies bee venom protein (honey bee) Allergy (Verified 01/14/19 08:53) Anaphylaxis Penicillins [PCN] Adverse Reaction (Verified 01/14/19 08:53) Upset Stomach Medications Acetaminophen [Tylenol Tablet] 650 mg PO Q6H PRN PRN tab 12/23/18 [Rx Confirmed 01/14/19] Ensure Enlive 120 ml PO 4X/DAY liquid 12/23/18 [Rx Confirmed 01/14/19] Folic Acid 1 mg PO DAILY #30 tab 12/23/18 [Rx Confirmed 01/14/19] Multivitamin [Once Daily] 1 ea PO DAILY #30 tab 12/23/18 [Rx Confirmed 01/14/19] Nicotine [Nicoderm] 14 mg TRANSDERM. DAILY patch 12/23/18 [Rx Confirmed 01/14/19] Pantoprazole Sodium [Protonix] 40 mg PO BID tab 12/23/18 [Rx Confirmed 01/14/19] Senna/Docusate Sodium [Senokot-S] 1 tab PO BID tab 12/23/18 [Rx Confirmed 01/14/19] Thiamine HCl 100 mg PO DAILY #30 tab 12/23/18 [Rx Confirmed 01/14/19] bisacodyl 5 mg tablet,delayed release 20 mg PO ONCE #4 tab 01/14/19 [Rx] gabapentin 300 mg capsule 300 mg PO DAILY 01/14/19 [History Confirmed 01/14/19] lisinopril 5 mg tablet 5 mg PO DAILY 01/14/19 [History Confirmed 01/14/19] metoprolol tartrate 25 mg tablet 50 mg PO BID tab 01/14/19 [History Confirmed 01/14/19] polyethylene glycol 3350 17 gram/dose oral powder See Rx Instructions PO .COMPLEX #238 g 01/14/19 [Rx] [facility] Medical History Anxiety (Acute) Depression (Acute) SOB (shortness of breath) (Acute) Hemorrhoids (Acute) Arthritis (Acute) Hypokalemia (Acute) Hyponatremia (Acute) Hypochloremia (Acute) Metabolic alkalosis (Acute) Anemia (Acute) Heme positive stool (Acute) Surgical History Hx of cholecystectomy (Acute) History of foot surgery (Acute) Family History Mother Arthritis Hypertension Father Hypertension Social History (Updated 01/18/19 @ 11:37 by Elijah Phillips MD) Smoking Status: Light Smoker (<10/day) how long ago did patient quit smokin month second hand exposure: No alcohol intake: never substance use type: does not use caffeine: Yes what type of physical activity do you participate in: other frequency: daily HPI HPI HPI: MATHEUS NUGENT, is a 38 M who presents to the office today for HPI HPI Surgical H&P: Yes HPI: MATHEUS NUGENT, is a 38 M who presents to the office today for Evaluation of heme positive stools and anemia. Patient was recently admitted to [facility] on 12/17/2018. He presented with generalized weakness and inability to ambulate. This is been progressing over the last 6 weeks. Patient has a long- standing history of alcohol dependency. In the hospital he developed some anemia and was noted to have heme positive stools. However the patient has not noticed any black tarry stools.Consultation was obtained and I elected to do an outpatient work-up with both an upper and lower endoscopy.He is here for preoperative H&P. ROS General General: Yes weight change; no appetite, fatigue, colon cancer, breast cancer or weakness HEENT HEENT: No difficulty swallowing, eye injury, eye surgery, swollen glands or hoarseness Endo Endocrine: No thyroid disease, diabetes mellitus, thyroid cancer, Hair loss, heat intolerance or cold intolerance Skin Skin: No rash or changing moles Musc Musculoskeletal: Yes arthritis; no back problems, rheumatoid arthritis, gout or joint pain Cardio Cardiovascular: Yes heart disease and high blood pressure; no murmur, pacemaker, atrial fibrillation, heart attack, heart stent, palpitations, shortness of breat with exertion or chest pain Psych Psychiatric: Yes depression and anxiety; no hearing voices Resp Respiratory: Yes shortness of breath, No sleep apnea, No cough, No COPD, No asthma, No emphysema, No wheezing Gastro Gastrointestinal: No abdominal pain, No nausea or vomiting, No diarrhea, No constipation, No blood in stool, No acid reflux, Yes hemorrhoids, No ulcers, No gallbladder problem, No black,tarry stools Gucci Hematologic: No blood thinners, No blood disorders, No bleeding, No anemia, No blood clots Neuro Neurologic: Yes numbness, Yes tingling, No weakness Exam Const General: no acute distress, well developed, well hydrated Orientation: oriented to person, oriented to place, oriented to time [facility] Head: normocephalic, atraumatic Ears: external ears normal Mouth: moist mucous membranes Eyes Sclera: sclerae normal Pupils: normal by confrontation Neck Neck: no lymphadenopathy noted Neck mass: No Thyroid: thyroid normal, symmetrical Chest Chest palpation & inspection: normal inspection of the chest Resp Effort & Inspection: normal respiratory effort Auscultation: clear to auscultation bilaterally Percussion: percussion normal Cardio Rate: regular rate Rhythm: regular rhythm Heart Sounds: no murmurs GI Palpation: soft, no hepatosplenomegaly, no masses, nontender Rectal Exam: other Other: Rectal exam deferred. Extrem General: normal to inspection, no clubbing, cyanosis or edema Assessment & Plan Problems 1. Anemia, unspecified type D64.9 2. Heme positive stool R19.5 Plan I have discussed the above with the patient. I have offered the patient colonoscopy As well as an EGD for evaluation. I have explained the risks/benefits of the procedure and described the procedure. I have discussed the risks with the patient, including but not limited to: infection, bleeding, perforation of the GI tract requiring emergency surgery, inability to complete the procedure, injury to any internal organs, complications of anesthesia, etc. - the patient understands and agrees to proceed. I have answered all the patient's questions to the patient's satisfaction and the patient has no further questions. The patient has been given instructions for the colon cleansing preparation. Medications Changed: From: metoprolol tartrate 25 mg PO BID 0RF To: metoprolol tartrate 50 mg PO BID Coding Level of Care Code Off vis,est,level 3 Diagnoses Anemia, unspecified type D64.9 ??Anemia type: unspecified type Heme positive stool R19.5 01/18/19 1138 <Electronically signed by Elijah murguia MD> Date _ Elijah Phillips MD I have re-examined the patient. There are no clinical changes since date of exam.
[2019-02-12] VITALS (7 sets, daily range): BP systolic 79–100; BP diastolic 46–74; PULSE 64–78; RESP 16; TEMP 36.7–36.9; O2SAT 93–100; BMI 23.6
[2019-02-12] MEDS: Lactated Ringers 1,000 ML 100 ML IV (08:15)
--- NOTE | 2019-02-12 08:56 | OP.ENDO_ITS ---
02/12/2019 Leandro Garza Re : Upper GI endoscopy procedure for Dez Quezada Greg This procedure was performed on Tuesday, February 12, 2019. My impressions and recommendations are as follows: Impressions : - Normal esophagus. - Gastritis. Biopsied. - Normal examined duodenum. No specimens collected. Recommendations : - Discharge patient to home. - Resume previous diet. - Continue present medications. - Await pathology results. - Repeat upper endoscopy (date not yet determined) for surveillance. - Return to primary care physician (date not yet determined). My findings are described in the full procedure note, which is enclosed. If I can be of further assistance, please feel free to contact me at Doctor phone number(s): , Fax: [phone], Work: . Sincerely, MD Elijah Durand MD 02/12/2019 8:56:40 AM This report has been signed electronically.
--- NOTE | 2019-02-12 09:00 | GASB_PTH ---
PATIENT: MATHEUS NUGENT LOC: EN U#:[id number] AGE/SX: 38/M ROOM: RE02/12/[address]: Dr. Elijah Phillips MD : 1980 BED: DIS: 02/12/2019 SPEC #: [id number] RECD: 02/12/19 11:40 STATUS: KONG LIZY #: [id number] JUAN: 02/12/19 09:[address]: Elijah Phillips DEPT: SURGICAL PATHOLOGY RECD BY: Dilcia Young ENTERED: 02/12/19 11:59 SP TYPE: Gastric Bx OTHR DR: Dr. Leandro Garza MD Tissues: Gastric mucous membrane Procedures: Surgery Specimen Level IV HEADER OPERATION: Colonoscopy, EGD ([facility] [place] PRE-OP DIAGNOSIS: Anemia, heme-positive stool TISSUE SUBMITTED: Antrum biopsy for H. pylori and path MICROSCOPIC DIAGNOSIS Antrum, biopsy: Minimal chronic inflammation. SJ:selwyn 9/5/19 COMMENT The results of immunohistochemistry for Helicobacter pylori will be reported separately ([id number]). MICROSCOPIC DESCRIPTION Slides are reviewed. GROSS DESCRIPTION Received in fixative is one container labeled with the patient's name and designated antrum biopsy. The specimen consists of one irregular fragment of light cameron soft tissue that measures 0.3 x 0.2 x 0.1 cm. The specimen is totally submitted in one cassette. / SJ:selwyn 02/12/19 TC:3 CPT: 55849
--- NOTE | 2019-02-12 09:00 | IMM_PTH ---
PATIENT: MATHEUS NUGENT LOC: EN U#:[id number] AGE/SX: 38/M ROOM: RE02/12/[address]: Dr. Elijah Phillips MD : 1980 BED: DIS: 02/12/2019 SPEC #: [id number] RECD: 02/12/19 13:50 STATUS: KONG REQ #: [id number] JUAN: 02/12/19 09:[address]: Elijah Phillips DEPT: IMMUNOHISTOCHEMISTRY RECD BY: Sheryl Baron ENTERED: 02/12/19 13:51 SP TYPE: IMMUNO OTHR DR: Dr. Leandro Garza MD Tissues: Stomach, NOS Procedures: H Pylori (initial) PHYSICIAN & INSTITUTION [place] [address] SPECIMEN INFORMATION: Tissue Source: Antrum biopsy Clinical Info: Anemia, heme-positive stool Specimen Number: [id number] CPT code: 13085 METHODOLOGY: Deparaffinized sections of prefer/formalin-fixed tissue or PAP/DQ stained slides are incubated with monoclonal/polyclonal antibodies/oligonucleotide probes. Localization is made via biotin free immunoperoxidase method. Appropriate controls are performed and reacted as expected. Results on target cell population are indicated in the following table: RESULTS: ANTIBODY / CLONE RESULT H Pylori (polyclonal) negative These tests were developed and their performance characteristics determined by [facility]. They may not have been cleared or approved by the U.S. Food and Drug Administration. The FDA has determined that such clearance or approval is not necessary. INTERPRETATION: Antrum biopsy: Negative for Helicobacter pylori organisms. HARLEY:selwyn 02/13/19
--- NOTE | 2019-02-12 09:10 | OP.ENDO_ITS ---
02/12/2019 Leandro Garza Re : Colonoscopy procedure for Dez Hatch Deajenny Greg This procedure was performed on Tuesday, February 12, 2019. My impressions and recommendations are as follows: Impressions : - The examination was otherwise normal on direct and retroflexion views. - No specimens collected. Recommendations : - Discharge patient to home. - Resume previous diet. - Continue present medications. - Repeat colonoscopy at appointment to be scheduled for screening purposes. - Return to primary care physician in 1 week. My findings are described in the full procedure note, which is enclosed. If I can be of further assistance, please feel free to contact me at Doctor phone number(s): , Fax: [phone], Work: . Sincerely, MD Elijah Durand MD 02/12/2019 9:09:28 AM This report has been signed electronically.
== END 2019-02-12 09:36 | disposition home or self-care (01) ==
LOC: EN 07:43 → AC 07:46
PROVIDERS: Family Provider Family Medicine; PCP Family Medicine; Referring Provider Family Medicine; Visit Provider Surgery
PROC: 0DJD8ZZ Inspection of Lower Intestinal Tract, Via Natural or Artificial Opening Endoscopic (ICD-10-PCS; CPT 45378; principal; 2019-02-12 08:55)
DX: K29.50 Unspecified chronic gastritis without bleeding (principal); D50.0 Iron deficiency anemia secondary to blood loss (chronic); I10 Essential (primary) hypertension; M19.90 Unspecified osteoarthritis, unspecified site; F32.9 Major depressive disorder, single episode, unspecified; F41.9 Anxiety disorder, unspecified; Z79.899 Other long term (current) drug therapy; Z88.0 Allergy status to penicillin; Z87.891 Personal history of nicotine dependence
CPT/HCPCS: 43239; 45378; 88305; 88342; J7120; J1610; J2405

== ENCOUNTER → 2019-03-28 10:50 | Outpatient (CLI) | payer MEDICAID, SELFPAY ==
[2019-03-25 10:55] VITALS: BMI 25.7
[2019-03-28 12:29] LABS: AST(SGOT) 29 U/L (15-37); Alanine Aminotransfer ALT/SGPT 48 U/L (16-61); Albumin, Serum 3.9 g/dL (3.2-5.0); Alkaline Phosphatase 101 U/L (45-117); Bilirubin, Direct 0.08 mg/dL (0.00-0.30); Cholesterol 298 mg/dL (200); Globulin 4.5 g/dL (2.2-4.2); High Density Lipoprotein 34 mg/dL; Protein, Total 8.4 g/dL (6.4-8.2); Triglycerides 267 mg/dL; Very Low Density Lipoprotein 53 mg/dL (5-40)
== END ==
PROVIDERS: Family Provider Family Medicine; PCP Family Medicine; Referring Provider Internal Medicine Cardiovascular Disease; Visit Provider Internal Medicine Cardiovascular Disease
DX: E78.00 Pure hypercholesterolemia, unspecified (principal)
CPT/HCPCS: 36415; 80061; 80076

== ENCOUNTER → 2020-01-08 | Outpatient (CLI) | payer MEDICAID, SELFPAY ==
--- NOTE | 2020-01-08 | LES_PTH ---
PATIENT: MATHEUS NUGENT LOC: [place] U#:[id number] AGE/SX: 39/M ROOM: RE01/08/[address]: Dr. Artemio Rivera MD : 1980 BED: DIS: 01/08/2020 SPEC #: [id number] RECD: 01/08/20 15:15 STATUS: KONG LIZY #: [id number] JUAN: 01/08/20 00:[address]: Artemio Rivera DEPT: SURGICAL PATHOLOGY RECD BY: Awais Roman ENTERED: 01/09/20 08:02 SP TYPE: Lesion OTHR DR: Dr. Leandro Garza MD Tissues: A - Skin of forehead B - Skin of preauricular region C - Skin of lip, NOS D - Skin of lip, NOS Procedures: Surgery Specimen Level IV HEADER OPERATION: Intradermal excision lesions PRE-OP DIAGNOSIS: Enlarging lesions; family history of skin cancer TISSUE SUBMITTED: A - Left lateral forehead by eyebrow, B - Left preauricular area, C - Left lateral lower lip near commissure, D - Right lateral lower lip near commissure MICROSCOPIC DIAGNOSIS A. Left lateral forehead by eyebrow skin lesion, shave biopsy: Consistent with blue nevus. See comment. B. Skin lesion, left preauricular area, shave biopsy: Intradermal nevus. C. Skin lesion, left lateral lower lip region, shave biopsy: Intradermal nevus. D. Skin lesion, right lateral lower lip, shave biopsy: Intradermal nevus. AM:selwyn 01/12/20 COMMENT A.Immunohistochemistry ([id number]) supports the above diagnosis. Case has been reviewed in consultation with Dr. Smith who concurs with the above diagnosis. IDC:SJ MICROSCOPIC DESCRIPTION Slides are reviewed. GROSS DESCRIPTION A - Received in fixative is one container labeled with the patient's name and designated left lateral forehead. The specimen consists of an irregular fragment of light cameron soft tissue measuring 0.3 x 0.3 x <0.1 cm. The specimen is totally submitted in one cassette. B - Received in fixative is one container labeled with the patient's name and designated left preauricular area. The specimen consists of a light cameron shave biopsy of skin measuring 0.7 x 0.5 x 0.1 cm. The specimen is submitted in its entirety in one cassette for postfixation sectioning. C - Received in fixative is one container labeled with the patient's name and designated left lower lip. The specimen consists of a light cameron shave biopsy of skin measuring 0.5 cm in diameter and 0.1 cm in thickness. The specimen is submitted in its entirety in one cassette for postfixation sectioning. D - Received in fixative is one container labeled with the patient's name and designated right lower lip. The specimen consists of a light cameron shave biopsy of skin measuring 0.5 cm in diameter and 0.1 cm in thickness. The specimen is submitted in its entirety in one cassette for postfixation sectioning. / AM:selwyn 01/09/20 TC:5 CPT: 90991 x4
--- NOTE | 2020-01-08 | IMM_PTH ---
PATIENT: MATHEUS NUGENT LOC: [place] U#:[id number] AGE/SX: 39/M ROOM: RE01/08/[address]: Dr. Artemio Rivera MD : 1980 BED: DIS: 01/08/2020 SPEC #: [id number] RECD: 01/12/20 11:49 STATUS: KONG REQ #: [id number] JUAN: 01/08/20 00:[address]: Artemio Rivera DEPT: IMMUNOHISTOCHEMISTRY RECD BY: Sheryl Baron ENTERED: 01/12/20 11:49 SP TYPE: IMMUNO OTHR DR: Dr. Leandro Garza MD Tissues: A - Skin of forehead Procedures: CD34 (add) MACRO (add) Vimentin (add) Pankeratin (initial) MELAN-A (add) S-100 (add) PHYSICIAN & INSTITUTION [place] [address] SPECIMEN INFORMATION: Tissue Source: A - Left lateral forehead by eyebrow Clinical Info: Enlarging lesions Specimen Number: [id number] CPT code: 05239, 22181 x5 METHODOLOGY: Deparaffinized sections of prefer/formalin-fixed tissue or PAP/DQ stained slides are incubated with monoclonal/polyclonal antibodies/oligonucleotide probes. Localization is made via biotin free immunoperoxidase method. Appropriate controls are performed and reacted as expected. Results on target cell population are indicated in the following table: RESULTS: ANTIBODY / CLONE RESULT Block A AE1-3 (AE1/AE3/PCK26) negative S-100 (4C4.9) negative Melan A (A103) positive Vimentin (V9) positive CD34 (QBEnd-10) negative Macro (HAM-56) negative These tests were developed and their performance characteristics determined by Laboratory. They may not have been cleared or approved by the U.S. Food and Drug Administration. The FDA has determined that such clearance or approval is not necessary. The above immunohistochemical/dualISH markers are ordered and reviewed by the Pathologist. INTERPRETATION: A. Skin of left lateral forehead by eyebrow, shave biopsy: Consistent with blue nevus. AM:selwyn 01/13/20 Case has been reviewed in consultation with Dr. Smith who concurs with the above diagnosis. IDC:HARLEY
[2020-01-08 13:32] VITALS: BMI 25.7
== END | disposition home or self-care (01) ==
LOC: LABSPEC 16:07
PROVIDERS: PCP Family Medicine; Referring Provider Surgery; Visit Provider Surgery
DX: L98.9 Disorder of the skin and subcutaneous tissue, unspecified (principal); Z80.8 Family history of malignant neoplasm of other organs or systems
CPT/HCPCS: 88305; 88341; 88342

== ENCOUNTER → 2020-06-10 12:39 | Outpatient (CLI) | payer MEDICAID, SELFPAY ==
[2020-05-26 14:22] VITALS: BMI 25.2
--- NOTE | 2020-06-10 12:41 | ECHOD_ITS ---
Reason For Study: NON-ISCH CMP Procedure This was a 2D Doppler, Color Flow transthoracic echocardiogram. Exam performed in department. Left Ventricle Normal LV size. Left ventricular systolic function is lower limits of normal. The estimated ejection fraction is 50 %. Transmitral doppler flow suggestive of impaired relaxation of left ventricle. No regional wall motion abnormalities noted. Right Ventricle Normal RV size. Normal systolic function. Atria Normal left atrium. Normal right atrium. No doppler evidence for ASD. Mitral Valve There is no mitral annular calcification. Normal mitral valve. Trivial mitral valve insufficiency. Tricuspid Valve Normal tricuspid valve. Trivial tricuspid valve insufficiency. Aortic Valve Trisinus/trileaflet aortic valve. Normal aortic valve. Pulmonic Valve The pulmonic valve is not well visualized. Trivial pulmonic valve insufficiency. Great Vessels Normal sized aortic root. Pericardium/Pleural No pericardial effusion. MMode/2D Measurements & Calculations LVIDd: 5.2 cm IVSd: 0.81 cm Ao root diam: 3.3 cm LVIDs: 3.9 cm LVPWd: 0.97 cm RVDd: 3.1 cm FS: 25.1 % LAV(MOD-bp): 45.2 ml LA A4 area: 15.8 cm2 LA dimension(2D): 4.0 cm LAV(MOD-bp) Indexed: 23.0 ml/m2 LAV(MOD-sp2): 45.0 ml LAV(MOD-sp4): 43.5 ml RA A4 area: 13.2 cm2 Doppler Measurements & Calculations MV E max lex: 39.7 cm/sec Lat Peak E' Lex: 13.0 cm/sec Med Peak E' Lex: 6.6 cm/sec MV A max lex: 49.9 cm/sec E/E' lat: 3.1 E/E' med: 6.0 MV E/A: 0.80 Ao V2 max: 96.1 cm/sec LV V1 max: 80.7 cm/sec PA V2 max: 78.3 cm/sec Ao max P.7 mmHg LV V1 max P.6 mmHg PI end-d lex: 126.1 cm/sec Interpretation Summary Left ventricular systolic function is lower limits of normal. The estimated ejection fraction is 50 %. Trivial mitral valve insufficiency. Trivial tricuspid valve insufficiency. Trivial pulmonic valve insufficiency. Transmitral doppler flow suggestive of impaired relaxation of left ventricle Ordering Physician: Marvin Malave Referring Physician: Leandro Garza Performed By: Zulay Spear, VIANNEY, RVT
== END ==
PROVIDERS: PCP Family Medicine; Referring Provider Internal Medicine Cardiovascular Disease; Visit Provider Internal Medicine Cardiovascular Disease
DX: I42.8 Other cardiomyopathies (principal); E78.5 Hyperlipidemia, unspecified; R00.0 Tachycardia, unspecified
CPT/HCPCS: 93225; 93226; 93306

== ENCOUNTER → 2021-04-27 08:38 | Outpatient (CLI) | payer MEDICAID, SELFPAY ==
[2021-04-27 10:56] LABS: AST(SGOT) 29 U/L (15-37); Alanine Aminotransfer ALT/SGPT 69 U/L (16-61); Alkaline Phosphatase 114 U/L (45-117); Bilirubin, Direct 0.12 mg/dL (0.00-0.30); Cholesterol 131 mg/dL (200); High Density Lipoprotein 28 mg/dL; Triglycerides 165 mg/dL; Very Low Density Lipoprotein 33 mg/dL (5-40)
== END ==
PROVIDERS: PCP Family Medicine; Referring Provider Nurse Practitioner Family; Visit Provider Nurse Practitioner Family
DX: E78.5 Hyperlipidemia, unspecified (principal)
CPT/HCPCS: 36415; 80061; 80076

== ENCOUNTER → 2022-05-12 | Outpatient (CLI) | payer MEDICARE, MEDICAID, SELFPAY ==
[2022-05-12 09:48] LABS: AST(SGOT) 23 U/L (15-37); Alanine Aminotransfer ALT/SGPT 33 U/L (16-61); Albumin, Serum 3.6 g/dL (3.2-5.0); Alkaline Phosphatase 90 U/L (45-117); Bilirubin, Direct 0.07 mg/dL (0.00-0.30); Cholesterol 140 mg/dL (200); Globulin 3.4 g/dL (2.2-4.2); High Density Lipoprotein 33 mg/dL; Triglycerides 135 mg/dL; Very Low Density Lipoprotein 27 mg/dL (5-40)
== END | disposition home or self-care (01) ==
PROVIDERS: Internal Medicine Cardiovascular Disease; PCP Family Medicine; Visit Provider Nurse Practitioner Family
DX: E11.9 Type 2 diabetes mellitus without complications (principal); I42.8 Other cardiomyopathies; E78.5 Hyperlipidemia, unspecified
CPT/HCPCS: 36415; 80061; 80076

== ENCOUNTER → 2022-10-06 | Outpatient (CLI) | payer MEDICARE, MEDICAID, SELFPAY ==
--- NOTE | 2022-10-06 11:02 | ECHOD_ITS ---
Reason For Study: Cardiomyopathy Procedure This was a 2D Doppler, Color Flow transthoracic echocardiogram. Exam performed in department. Left Ventricle Normal LV size. The estimated ejection fraction is 55 %. Normal diastology for age. Right Ventricle Normal RV size. Normal systolic function. Atria Normal left atrium. Normal right atrium. No doppler evidence for ASD. Mitral Valve There is no mitral valve stenosis. No mitral valve insufficiency. Tricuspid Valve There is no tricuspid stenosis. Unable to estimate RV systolic pressure due to inadequate jet, pulmonary artery pressure probably normal. Aortic Valve Trisinus/trileaflet aortic valve. There is no aortic stenosis. No aortic valve insufficiency. Pulmonic Valve There is no pulmonic valvular stenosis. No pulmonic valve insufficiency. Great Vessels Normal aortic root. Pericardium/Pleural No pericardial effusion. MMode/2D Measurements & Calculations LVIDd: 4.9 cm IVSd: 1.1 cm LA dimension: 3.8 cm LVIDs: 3.5 cm LVPWd: 1.0 cm RVDd: 4.0 cm FS: 27.9 % LAV(MOD-bp): 44.8 ml LA A4 area: 14.4 cm2 RA A4 area: 13.1 cm2 LAV(MOD-bp) Indexed: 23.6 ml/m2 LAV(MOD-sp2): 57.1 ml LAV(MOD-sp4): 33.8 ml Time Measurements MV dec time: 0.23 sec Doppler Measurements & Calculations MV E max lex: 38.9 cm/sec Lat Peak E' Lex: 11.8 cm/sec Med Peak E' Lex: 10.4 cm/sec MV A max lex: 48.6 cm/sec E/E' lat: 3.3 E/E' med: 3.7 MV E/A: 0.80 MV V2 max: 57.4 cm/sec MV P1/2t max lex: 47.1 cm/sec Ao V2 max: 95.0 cm/sec MV max P.3 mmHg MV P1/2t: 86.1 msec Ao max P.6 mmHg MV V2 mean: 33.1 cm/sec MV dec slope: 160.0 cm/sec2 Ao V2 mean: 67.1 cm/sec MV mean P.52 mmHg MVA(P1/2t): 2.6 cm2 Ao mean P.1 mmHg MV V2 VTI: 12.7 cm Ao V2 VTI: 19.1 cm AV (velocity ratio): 0.87 LV V1 max: 83.8 cm/sec PA V2 max: 74.1 cm/sec LV V1 max P.8 mmHg LV V1 mean P.6 mmHg LV V1 mean: 60.0 cm/sec LV V1 VTI: 16.6 cm ECHO/Echo Complete Interpretation Summary The estimated ejection fraction is 55 %. Ordering Physician: Marvin Malave Referring Physician: Leandro Garza Performed By: Hernandez Tilley RCS
== END | disposition home or self-care (01) ==
LOC: CVS 11:02
PROVIDERS: PCP Family Medicine; Referring Provider Internal Medicine Cardiovascular Disease; Visit Provider Internal Medicine Cardiovascular Disease
DX: R06.02 Shortness of breath (principal); I42.8 Other cardiomyopathies; E11.9 Type 2 diabetes mellitus without complications; E78.5 Hyperlipidemia, unspecified
CPT/HCPCS: 93306

== ENCOUNTER → 2025-01-08 | Outpatient (CLI) | payer MEDICARE, MEDICAID, SELFPAY ==
--- NOTE | 2025-01-08 14:07 | ECHOD_ITS ---
Reason For Study Reason For Study: NON-ISCHEMIC CARDIOMYOPATHY Procedure This was a 2D Doppler, Color Flow transthoracic echocardiogram. Exam performed in department. Left Ventricle Normal LV size. The left ventricular ejection fraction is 55 %. Stage 2 diastolic dysfunction. No regional wall motion abnormalities noted. Right Ventricle Normal RV size. Normal systolic function. Atria Normal left atrium. Normal right atrium. Mitral Valve Normal mitral valve. Tricuspid Valve Normal tricuspid valve. Aortic Valve Trisinus/trileaflet aortic valve. Pulmonic Valve Normal pulmonic valve. Great Vessels Normal aortic root. The pulmonary artery is normal size. Inferior vena cava collapse with respiration. Pericardium/Pleural No pericardial effusion. MMode/2D Measurements & Calculations LVIDd: 5.7 cm IVSd: 0.99 cm Ao root diam: 3.0 cm LVIDs: 3.7 cm LVPWd: 0.88 cm RVDd: 4.1 cm FS: 34.9 % LAV(MOD-bp): 46.3 ml LVAd ap4: 32.3 cm2 LVAd ap2: 29.9 cm2 LAV(MOD-bp) Indexed: 24.3 ml/m2 LVLd ap4: 7.9 cm LVLd ap2: 8.4 cm LAV(MOD-sp2): 46.6 ml EDV(MOD-sp4): 114.8 ml EDV(MOD-sp2): 91.2 ml LAV(MOD-sp4): 43.0 ml EDV(sp4-el): 112.4 ml EDV(sp2-el): 90.5 ml LVAs ap4: 16.5 cm2 LVAs ap2: 18.0 cm2 LVLs ap4: 6.4 cm LVLs ap2: 7.3 cm ESV(MOD-sp4): 36.4 ml ESV(MOD-sp2): 39.1 ml ESV(sp4-el): 36.3 ml ESV(sp2-el): 37.7 ml EF(MOD-sp4): 68.3 % EF(MOD-sp2): 57.1 % EF(sp4-el): 67.7 % SV(MOD-sp4): 78.4 ml SV(MOD-sp2): 52.1 ml SV(sp4-el): 76.1 ml SI(MOD-sp4): 41.2 ml/m2 SI(MOD-sp2): 27.4 ml/m2 LA A4 area: 16.2 cm2 LA dimension(2D): 3.7 cm RA A4 area: 14.6 cm2 TAPSE: 2.1 cm Time Measurements MV dec time: 0.19 sec Doppler Measurements & Calculations MV E max lex: 58.5 cm/sec Lat Peak E' Lex: 15.8 cm/sec Med Peak E' Lex: 14.4 cm/sec MV A max lex: 44.5 cm/sec E/E' lat: 3.7 E/E' med: 4.1 MV E/A: 1.3 MV V2 max: 53.1 cm/sec MV P1/2t max lex: 56.3 cm/sec Ao V2 max: 107.2 cm/sec MV max P.1 mmHg MV P1/2t: 68.5 msec Ao max P.6 mmHg MV V2 mean: 33.0 cm/sec Ao V2 mean: 73.5 cm/sec MV mean P.48 mmHg MV dec slope: 240.6 cm/sec2 Ao mean P.4 mmHg MV V2 VTI: 15.1 cm MVA(P1/2t): 3.2 cm2 Ao V2 VTI: 20.7 cm AV (velocity ratio): 0.79 LV V1 max: 81.2 cm/sec PA V2 max: 74.1 cm/sec LV V1 max P.6 mmHg PA V2 mean: 54.7 cm/sec LV V1 mean P.4 mmHg LV V1 mean: 55.9 cm/sec LV V1 VTI: 16.3 cm ECHO/Echo Complete Interpretation Summary Normal LV size. The left ventricular ejection fraction is 55 %. Stage 2 diastolic dysfunction. Ordering Physician: Patrica Naik Referring Physician: Leandro Garza Performed By: Zulay Spear RDCS, RVT
== END | disposition home or self-care (01) ==
LOC: CVS 14:05
PROVIDERS: PCP Family Medicine; Referring Provider Nurse Practitioner Gerontology; Visit Provider Nurse Practitioner Gerontology
DX: I42.8 Other cardiomyopathies (principal)
CPT/HCPCS: 93306